=== PATIENT | female | born 1945 | race Caucasian/White ===

== ENCOUNTER 2019-05-02 19:09 | Inpatient (IN) | payer MEDICARE, MEDICAID ==
[2019-05-02] MEDS ORDERED: Enoxaparin Sodium 60 MG/0.6 ML SYRINGE ONE (19:46)
[2019-05-02] MEDS ORDERED: Diltiazem HCl 125 MG, Admixture Fee 1 EACH in Sodium Chloride 0.9% 100 ML IVPB SCH (20:00)
[2019-05-02] MEDS ORDERED: Magnesium 2 GM/50 ML 2 GM in Premix Bag 1 BAG IVPB SCH (22:00)
[2019-05-02 22:40] LABS: CKMB 2.2 ng/mL (0-6.6)
[2019-05-02 22:47] VITALS: BMI 18.3
[2019-05-03] MEDS ORDERED: Calcium Carbonate 500 MG ChewTAB PO PRN (02:40)
[2019-05-03] MEDS ORDERED: Senokot S 8.6-50 MG TAB PO PRN (02:40)
[2019-05-03] MEDS ORDERED: Nitroglycerin 0.4 MG TAB (25 Tab Bottle) PO PRN (02:42)
--- NOTE | 2019-05-03 02:54 | HP ---
The patient was seen and examined on 02 May 2019 in the emergency room. CHIEF COMPLAINT: Shortness of breath along with rapid heart rate. HISTORY OF PRESENT ILLNESS: The patient is a 73-year-old female with paroxysmal atrial tachycardia, COPD, and chronic diastolic heart failure, presented to the emergency room at [facility] with above complaints. Over the last 1 week, the patient noticed that her heart rate is in 130s to 140s. The patient was evaluated by her PCP and was advised to go to the emergency room for evaluation. She noticed that her blood pressure was low. The shortness of breath was slightly worsened compared to her baseline. She did not feel significant palpitations, however, she felt lightheaded. She denies any chest pain, lower extremity edema, or significant orthopnea. No recent immobilization or travel reported. She continues to smoke on a daily basis. Denies previous cardiac workup beside an echocardiogram in 2017 during her hospitalization. PAST MEDICAL HISTORY: 1. COPD. 2. Chronic diastolic heart failure. 3. Paroxysmal atrial tachycardia. 4. Hypertension. 5. Hyperlipidemia. 6. History of CVA. 7. History of panic attacks. 8. Chronic anemia. PAST SURGICAL HISTORY: Bilateral carotid endarterectomy. ALLERGIES: NO KNOWN DRUG ALLERGIES. CURRENT HOME MEDICATIONS: The patient is unable to recall any of her home medications. FAMILY HISTORY: Mother with diabetes. She also had stroke later on. SOCIAL HISTORY: She continues to smoke up to half pack a day for more than 30 years. Denies any alcohol or drug use. Full code. DPOA - family. REVIEW OF SYSTEMS: All other review of systems were reviewed and were found negative. PHYSICAL EXAMINATION: VITAL SIGNS: In the emergency room showed temperature 98.6, respirations 20, pulse rate in 130s, blood pressure 100/59, O2 saturation of 97% on 4 L nasal cannula. GENERAL: A 73-year-old female in no apparent distress at rest. HEENT: Head, atraumatic and normocephalic. Sclerae anicteric. Moist mucous membranes. No oral lesion. NECK: Supple. No JVD. No carotid bruit. LUNGS: Showed scattered rhonchi without significant rales or wheezing. No significant accessory muscle use. HEART: S1, S2 present. Tachycardic. Irregularly irregular rhythm. No rubs or gallops. ABDOMEN: Soft, nontender. Bowel sounds present. EXTREMITIES: No calf tenderness. NEUROLOGIC: Grossly nonfocal. Moves all 4 extremities. PSYCHIATRIC: Alert, awake, and oriented x3. SKIN: Warm and dry. LYMPH NODES: No palpable lymph nodes in the neck. PERIPHERAL VASCULAR: Radial pulses palpable bilaterally. MUSCULOSKELETAL: No joint swelling tenderness. LABORATORY FINDINGS: CBC showed WBC 9.0 with hemoglobin 10.1, hematocrit 34.8, platelet of 324. INR 0.8. Chemistry showed sodium 140 potassium 5.3, chloride 91, bicarb 34, BUN 34, creatinine 1.53. Baseline creatinine earlier this year was around 1.0. Troponin was 0.032 with normal CK-MB. BNP 572. IMAGING STUDIES: Chest x-ray by my review was negative for acute findings. It showed increased bronchopulmonary markings. EKG by my review showed atrial fibrillation with rapid ventricular response with PVCs. IMPRESSION: 1. Atrial fibrillation with rapid ventricular response. The patient is currently on Cardizem drip. 2. Chronic obstructive pulmonary disease with ongoing tobacco abuse. 3. Relative hypomagnesemia. 4. History of multifocal atrial arrhythmias. The patient was evaluated by Cardiology and Electrophysiology, Dr. Ya in 2017. 5. Chronic diastolic heart failure. 6. Hyperlipidemia. 7. Elevated troponin secondary to type 2 myocardial infarction. 8. Chronic anemia. 9. Chronic kidney disease, stage 3 with acute kidney injury. 10. Hyperkalemia. 11. Hyperlipidemia. 12. Anxiety. PLAN: The patient will be monitored in the telemetry unit. We will continue Cardizem drip. Home medications are unclear at this time. She also received one dose of 1 mg/kg Lovenox, which will be continued. We will keep her n.p.o. past midnight. Consult Cardiology. We will verify home medications and start accordingly. We will replace magnesium. Plan of care was discussed with the patient in detail. She stated understanding. Job ID: [id number] [facility]
[2019-05-03 04:15] LABS: #Eosinphils 0.1 thou/uL (0.0-0.7); #Lymphocytes 2.1 thou/uL (1.20-3.40); #Monocytes 1.1 thou/uL (0.11-0.59); %Basophils 0.1 % (0.0-1.0); %Eosinophils 1.2 % (0.0-10.0); %Lymphocytes 24.9 % (21.0-51.0); %Monocytes 13.2 % (0.0-10.0); %Neutrophils 60.6 % (42.0-75.0); Hemoglobin 9.4 g/dL (12.0-16.0); Mean Corpuscular Hemoglobin 31.5 pg (27.0-31.0); Mean Corpuscular Volume 98.5 fL (78.0-98.0); Mean Platelet Volume 8.5 fL (7.4-10.4); Platelet Count 271 thou/uL (130-400); RBC Distribution Width 11.4 % (11.5-14.5); Red Blood Cell (RBC) Count 2.99 mill/uL (4.20-5.40); White Blood Cell (WBC) Count 8.3 thou/uL (4.8-10.8)
[2019-05-03 04:58] LABS: Anion Gap 13 mmol/L (10-20); BUN (Urea Nitrogen) 25 mg/dL (9.8-20.1); Calc. Creatinine Clearance 33 mL/min (70-130); Calcium 9.2 mg/dL (7.8-10.44); Carbon Dioxide 34 mmol/L (23-31); Chloride 95 mmol/L (98-107); Estimated GFR-MDRD 48; Glucose 96 mg/dL (83-110); Sodium 138 mmol/L (136-145)
[2019-05-03] MEDS: Mometasone/Formoterol 120 PUFF INHALER INH SCH ×2 (06:58→18:25)
[2019-05-03] MEDS ORDERED: Famotidine 20 MG TAB PO SCH (09:00)
[2019-05-03] MEDS: Multivit, Therapeutic 1 TAB PO SCH (09:13)
[2019-05-03] MEDS: Aspirin 81 mg Enteric Coated Tablet PO SCH (09:13)
[2019-05-03] MEDS ORDERED: Iopamidol 370 76% 50 ML VIAL FS ONE (11:23)
--- NOTE | 2019-05-03 16:27 | PDOC.HOSPP ---
- Subjective Encounter Date: 05/03/19 Encounter Time: 14:00 Subjective: The patient reports feeling a flutter sensation on and off for the past few weeks. She never had palpitations. Went to her PCP who sent her to the ER. The patient denies chest pain. She has mild shortness of breath. She reports decreased appetite. - Objective Vital Signs & Weight: Vital Signs (12 hours) Temp Pulse Resp BP Pulse Ox 05/03/19 11:34 98.8 F 82 16 111/54 L 96 05/03/19 07:25 98.0 F 75 16 108/61 95 05/03/19 07:04 99 05/03/19 07:03 75 16 99 05/03/19 06:58 78 16 95 Weight Admit Weight 100 lb 6 oz Weight 100 lb 6 oz I&O: 05/02/19 05/03/19 05/04/19 06:59 06:59 06:59 Intake Total 285 Output Total 200 Balance 85 Result Diagrams: 05/03/19 03:47 05/03/19 03:47 Hospitalist ROS - Review of Systems Constitutional: denies: fever, chills - Medication Medications: Active Medications Generic Name Dose Route Start Last Admin Trade Name Freq PRN Reason Stop Dose Admin Albuterol/Ipratropium 3 ml 05/03/19 06:30 05/03/19 07:03 Duoneb NEB 3 ml BID-RT JOLIE Administration Aspirin 81 mg 05/03/19 09:00 05/03/19 09:13 Ecotrin PO 81 mg DAILY JOLIE Administration Famotidine 20 mg 05/03/19 09:00 05/03/19 09:14 Pepcid PO Not Given BID JOLIE Mometasone Furoate/Formoterol Fumar 2 puff 05/03/19 06:30 05/03/19 06:58 Dulera 200 Mcg/5 Mcg Inhaler INH 2 puff BID-RT JOLIE Administration Multivitamins 1 tab 05/03/19 09:00 05/03/19 09:13 Theragran PO 1 tab DAILY JOLIE Administration - Exam General Appearance: NAD, awake alert Eye: PERRL, anicteric sclera ENT: normocephalic atraumatic, no oropharyngeal lesions Neck: supple, symmetric, no JVD, no thyromegaly Heart: no murmur, no gallops, no rubs, irregular Respiratory: CTAB, no ronchi Respiratory - other findings: mild diminished breath sounds at bases Gastrointestinal: soft, non-tender, non-distended Extremities: no cyanosis, no clubbing, no edema Skin: normal turgor, no lesions, no rashes Neurological: cranial nerve grossly intact, normal sensation to touch, no focal deficits Musculoskeletal: normal tone, normal strength, no muscle wasting Psychiatric: normal affect, normal behavior, A&O x 3, oriented to person Hosp A/P - Plan This is a 73 year old female who presented with afib with RVR Atrial fibrillation - will order low dose metoprolol 12.5 mg, try to wean off cardizem drip. IF it improves heart rate will order additional 12.5 mg - check CTA thorax - ECHO shows EF 50-55%, moderate MR, mild to moderate TR - cardiology consult pending. - continue lovenox 40 mg SC, switch to BID CKD - creatinine 1.1, stable Macrocytic anemia - Hb 9, check B12 and folate - check TSh DVT prophylaxis: therapeutic lovenox Dispo: pending control of heart rate, cardiology evaluation
--- NOTE | 2019-05-03 17:27 | CT ---
CT PULMONARY ANGIOGRAM WITH IV CONTRAST AND 3-D POSTPROCESSING: HISTORY:Uncontrolled atrial fibrillation. Shortness of breath. COPD FINDINGS: There is good contrast opacification of the pulmonary arterial vasculature without filling defects to suggest pulmonary embolism. The thoracic aorta is without aneurysm or dissection. No pleural or pericardial effusions are seen. No pneumothoraces, focal areas of consolidation or lung nodules are noted. There are changes of COPD. Dependent changes are seen at the lung bases. There are degenerative changes in the spine. There is a left adrenal adenoma. IMPRESSION: No CT evidence of pulmonary embolism.
[2019-05-03 18:11] LABS: Thyroid Stimulating Hormone 0.6826 uIU/mL (0.35-4.94)
[2019-05-03] MEDS: Famotidine 20 MG TAB PO SCH (20:59)
[2019-05-03] MEDS ORDERED: Enoxaparin Sodium 40 MG/0.4 ML SYRINGE SC SCH (21:00)
[2019-05-03] MEDS ORDERED: Enoxaparin Sodium 30 MG/0.3 ML SYRINGE SC SCH (21:00)
--- NOTE | 2019-05-03 23:51 | CON ---
DATE OF CONSULTATION: HISTORY OF PRESENT ILLNESS: Sharla Beasley is a 73-year-old white female, who has been evaluated by Dr. Dipak Parr in the past. He saw her when she was admitted in January 2017 with COPD exacerbation. It was felt that she had some degree of diastolic heart failure and also would have episodes of paroxysmal atrial tachycardia with the episodes being very short lived. She was placed on diltiazem to help with suppression of these. She has not been seen by Cardiology since that time. She now has noticed that whenever she would check her oximetry that her heart rate would be in the 120s to 130s. This has been occurring for the last 2-3 weeks at least. She denies any palpitations or chest discomfort. However, she does state that her breathing has been somewhat more difficult. She was seen by primary physician and told to go to the emergency room. She initially went to the emergency room in [place] and was transferred here. She was placed on a Cardizem drip for better rate control. PAST MEDICAL HISTORY: Remarkable for COPD, diastolic heart failure, paroxysmal atrial tachycardia on Cardizem, hypertension, hyperlipidemia, history of CVA, history of panic attacks, and anemia. PAST SURGICAL HISTORY: Bilateral carotid endarterectomy. MEDICATIONS: 1. Albuterol nebs q.6 hours p.r.n. 2. Albuterol inhaler. 3. Cardizem CD 180 daily. 4. Advair Diskus one inhalation b.i.d. Furosemide 40 mg every other day. 5. Lisinopril 20 mg daily. 6. Pravastatin 40 at bedtime. 7. Sertraline 150 daily. 8. Ventolin inhaler. ALLERGIES: NONE. SOCIAL HISTORY: She smokes 1/2 pack per day. FAMILY HISTORY: Unremarkable except a mother with stroke. REVIEW OF SYSTEMS: A 10-point review of systems unremarkable. PHYSICAL EXAMINATION: VITAL SIGNS: Blood pressure 113/71, pulse of 100 and irregularly irregular. HEENT: PERRL. NECK: Supple. CHEST: Reveals distant breath sounds. CARDIOVASCULAR: S1, S2 normal without any S3, S4, or murmurs. Carotid upstrokes normal without bruits. ABDOMEN: Normal bowel sounds. No tenderness. EXTREMITIES: Revealed no clubbing, cyanosis, or edema. NEUROLOGIC: Grossly intact. LABORATORY DATA: EKG reveals atrial fibrillation with fast ventricular response of 133 per minute. Chest CTA reveals no evidence of pulmonary embolism. Echocardiogram revealed study to be technically difficult. There was ejection fraction of 55% to 60% with moderate mitral regurgitation, aortic valvular sclerosis, and mild to moderate tricuspid regurgitation. Hemoglobin 9.4, hematocrit 29.5, white count 8300, platelets 271,000. Sodium 138, potassium 4.0, chloride 95, carbon dioxide 34, BUN 25, creatinine 1.11. Troponin I 0.032. TSH is normal. BNP 572.5. IMPRESSION: 1. New onset atrial fibrillation with rapid ventricular response. Currently on Cardizem drip. Historically, when she would check her pulse oximeter, her heart rate has been elevated for 2 to 3 weeks and I imagine she has been in atrial fibrillation for that amount of time. 2. History of atrial tachycardia, on Cardizem for suppression. 3. Chronic obstructive pulmonary disease. 4. Smoker. 5. History of diastolic heart failure. 6. Hyperlipidemia. 7. [id number] myocardial infarction type 2. 8. Chronic kidney disease. 9. Hyperlipidemia. 10. Anxiety. RECOMMENDATIONS: Mrs. Fox currently is on Lovenox 1 mg/kg b.i.d. and will continue to be anticoagulated. Consideration should be given to eventual transition to oral drug. Her GFR is usually under 50 and Xarelto 15 mg daily would be the optimal choice. Once someone is available to perform a transesophageal echo, consideration should be given to electrocardioversion. I am hesitant to start her on an antiarrhythmic at this time until we are certain that there is no left atrial appendage thrombus. Consideration be given to electrical cardioversion on Wednesday when Dr. You is available. Job ID: [id number] [facility]
[2019-05-04 04:26] LABS: #Eosinphils 0.1 thou/uL (0.0-0.7); #Lymphocytes 1.6 thou/uL (1.20-3.40); #Neutrophils 4.4 thou/uL (1.40-6.50); %Basophils 0.5 % (0.0-1.0); %Eosinophils 1.4 % (0.0-10.0); %Lymphocytes 22.2 % (21.0-51.0); %Monocytes 14.4 % (0.0-10.0); %Neutrophils 61.5 % (42.0-75.0); Hemoglobin 8.9 g/dL (12.0-16.0); Mean Corpuscular HGB CONC 31.2 g/dL (32.0-36.0); Mean Corpuscular Hemoglobin 30.9 pg (27.0-31.0); Mean Corpuscular Volume 98.9 fL (78.0-98.0); Platelet Count 288 thou/uL (130-400); RBC Distribution Width 11.5 % (11.5-14.5); Red Blood Cell (RBC) Count 2.89 mill/uL (4.20-5.40); White Blood Cell (WBC) Count 7.1 thou/uL (4.8-10.8)
[2019-05-04 04:32] LABS: BUN (Urea Nitrogen) 21 mg/dL (9.8-20.1); Calc. Creatinine Clearance 33 mL/min (70-130); Calcium 9.4 mg/dL (7.8-10.44); Estimated GFR-MDRD 52; Glucose 100 mg/dL (83-110); Magnesium 1.8 mg/dL (1.6-2.6)
[2019-05-04 04:41] LABS: Anion Gap 2 mmol/L (10-20); Chloride 96 mmol/L (98-107); Potassium 4.3 mmol/L (3.5-5.1); Sodium 139 mmol/L (136-145)
[2019-05-04 04:44] LABS: Carbon Dioxide 45 mmol/L (23-31)
[2019-05-04] MEDS: Mometasone/Formoterol 120 PUFF INHALER INH SCH ×2 (07:34→18:49)
[2019-05-04] MEDS ORDERED: Albuterol Sulfate 1.25 MG/3 ML NEB NEB PRN (07:34)
[2019-05-04 08:00] LABS: Actual Bicarbonate (HCO3a) 39.6 mEq/L (22-28); Base Excess (BEa) 12.1 mEq/L (-2.0 to +3.0); Calcium, Ionized 1.18 mmol/L (1.12-1.30); Carboxyhemoglobin (COHb) 0.6 gm% (0.0-3.0); Hemoglobin (Hb) 10.3 g/dL (12.0-16.0); O2 Tension (PaO2) 89.5 mmHg (> 70.0); Potassium - ABG Lab 4.31 mmol/L (3.70-5.30); pH, Arterial 7.37 (7.35-7.45)
[2019-05-04 08:03] LABS: CO2 Tension 70.2 mmHg (35.0-45.0)
[2019-05-04 08:04] LABS: Puncture Site RBA
[2019-05-04] MEDS ORDERED: Enoxaparin Sodium 40 MG/0.4 ML SYRINGE SC SCH (09:00)
[2019-05-04] MEDS ORDERED: Rivaroxaban 10 MG TAB PO SCH (09:00)
[2019-05-04] MEDS: Aspirin 81 mg Enteric Coated Tablet PO SCH (09:13)
[2019-05-04] MEDS: Multivit, Therapeutic 1 TAB PO SCH (09:14)
[2019-05-04] MEDS: PROVENTIL INHALER 6.7 G (200 INHALATIONS) INH SCH (14:05)
--- NOTE | 2019-05-04 15:36 | PDOC.HOSPP ---
- Subjective Encounter Date: 05/04/19 Encounter Time: 10:30 Subjective: The patient states she feels okay, denies palpitations, chest pain or shortness of breath. Per nursing staff, heart rate has been ranging from 80 to 120 while ambulating overnight. SHe is still on cardizem drip at 2.5 mcg/hour. Home medications were resumed. This afternoon, she hasn't gone above 101 Per cardiology, plan for KEIRY on Wednesday. Cardiology switched her from lovenox to xarelto PCO2 was noted to be 45, ABG shows pH 7.37, pCO2 of 70. Patient has history of COPD - Objective Vital Signs & Weight: Vital Signs (12 hours) Temp Pulse Resp BP Pulse Ox 05/04/19 14:05 76 16 05/04/19 11:05 98.9 F 76 16 105/55 L 98 05/04/19 07:34 100 16 05/04/19 07:25 100 05/04/19 07:23 100 16 05/04/19 07:02 97.8 F 86 16 119/58 L 100 Weight Admit Weight 100 lb 6 oz Weight 95 lb I&O: 05/03/19 05/04/19 05/05/19 06:59 06:59 06:59 Intake Total 285 Output Total 200 Balance 85 Result Diagrams: 05/04/19 03:41 05/04/19 03:41 Hospitalist ROS - Review of Systems Constitutional: denies: fever, chills - Medication Medications: Active Medications Generic Name Dose Route Start Last Admin Trade Name Freq PRN Reason Stop Dose Admin Albuterol Sulfate 1 puff 05/04/19 12:00 05/04/19 14:05 Proventil Hfa INH 1 puff 1200 JOLIE Administration Albuterol/Ipratropium 3 ml 05/03/19 06:30 05/04/19 07:23 Duoneb NEB 3 ml BID-RT JOLIE Administration Aspirin 81 mg 05/03/19 09:00 05/04/19 09:13 Ecotrin PO 81 mg DAILY JOLIE Administration Diltiazem HCl 180 mg 05/04/19 09:00 05/04/19 09:14 Cardizem Cd PO 180 mg DAILY JOLIE Administration Famotidine 20 mg 05/03/19 21:00 05/03/19 20:59 Pepcid PO 20 mg QPM JOLIE Administration Diltiazem HCl 125 mg/ 125 mls @ 2.5 mls/hr 05/02/19 20:00 05/04/19 02:07 Miscellaneous Medication 1 IVPB 125 mls each/ Sodium Chloride INF JOLIE Administration Protocol Metoprolol Succinate 25 mg 05/04/19 09:00 05/04/19 09:14 Toprol Xl PO 25 mg DAILY JOLIE Administration Mometasone Furoate/Formoterol Fumar 2 puff 05/03/19 06:30 05/04/19 07:34 Dulera 200 Mcg/5 Mcg Inhaler INH 2 puff BID-RT JOLIE Administration Multivitamins 1 tab 05/03/19 09:00 05/04/19 09:14 Theragran PO 1 tab DAILY JOLIE Administration Sertraline HCl 150 mg 05/04/19 09:00 05/04/19 09:14 Zoloft PO 150 mg DAILY JOLIE Administration - Exam General Appearance: NAD, awake alert Eye: PERRL, anicteric sclera ENT: normocephalic atraumatic, no oropharyngeal lesions Neck: supple, symmetric, no JVD Heart: no murmur, no gallops, no rubs Heart - other findings: irregularly irregular Respiratory: CTAB, no wheezes, no rales, no ronchi Gastrointestinal: soft, non-tender, non-distended, normal bowel sounds, no hepatomegaly Extremities: no cyanosis, no clubbing, no edema Skin: normal turgor, no lesions, no rashes Neurological: cranial nerve grossly intact, normal sensation to touch, no focal deficits, no new deficit Musculoskeletal: normal tone, normal strength, no muscle wasting Hosp A/P - Plan CTA Thorax; negative for PE. This is a 73 year old female who presented with afib with RVR Atrial fibrillation - continue metoprolol 25 mg daily, diltiazem 180 mg daily, currently still on cardizem drip 2.5, wean off - switch anticoagulation to xarelto - COPD - continue breathing treatments scheduled Compensated primary respiratory acidosis with metabolic alkalosis - patient has pCO2 of 45, pH 7.37, pCO2 70 -treatment of COPD as mentioned above CKD - creatinine 1.1, stable Macrocytic anemia - Hb 9, B12, folate and TSH are normal DVT prophylaxis: xarelto Dispo: KEIRY on Wednesday
[2019-05-04] MEDS ORDERED: Mometasone/Formoterol 120 PUFF INHALER INH SCH (18:30)
[2019-05-04] MEDS: Famotidine 20 MG TAB PO SCH (20:08)
[2019-05-04] MEDS: Simvastatin 5 MG TAB PO SCH (20:08)
[2019-05-04] MEDS ORDERED: Diltiazem HCl SR 60 mg Capsule PO SCH (20:15)
[2019-05-05 04:36] LABS: Hemoglobin 8.9 g/dL (12.0-16.0); Mean Corpuscular HGB CONC 31.7 g/dL (32.0-36.0); Mean Corpuscular Hemoglobin 31.3 pg (27.0-31.0); Mean Corpuscular Volume 98.7 fL (78.0-98.0); Mean Platelet Volume 7.6 fL (7.4-10.4); Platelet Count 283 thou/uL (130-400); RBC Distribution Width 11.5 % (11.5-14.5); Red Blood Cell (RBC) Count 2.84 mill/uL (4.20-5.40); White Blood Cell (WBC) Count 8.4 thou/uL (4.8-10.8)
[2019-05-05 05:05] LABS: BUN (Urea Nitrogen) 21 mg/dL (9.8-20.1); Calc. Creatinine Clearance 33 mL/min (70-130); Calcium 9.3 mg/dL (7.8-10.44); Estimated GFR-MDRD 51; Glucose 103 mg/dL (83-110)
[2019-05-05 05:16] LABS: Anion Gap 12 mmol/L (10-20); Carbon Dioxide 38 mmol/L (23-31); Chloride 93 mmol/L (98-107); Potassium 4.7 mmol/L (3.5-5.1); Sodium 138 mmol/L (136-145)
[2019-05-05] MEDS: Mometasone/Formoterol 120 PUFF INHALER INH SCH ×2 (07:42→20:09)
[2019-05-05] MEDS: Multivit, Therapeutic 1 TAB PO SCH (09:39)
[2019-05-05] MEDS: Aspirin 81 mg Enteric Coated Tablet PO SCH (09:40)
[2019-05-05] MEDS: PROVENTIL INHALER 6.7 G (200 INHALATIONS) INH SCH (11:08)
[2019-05-05] MEDS: Acetaminophen 325 MG TAB PO PRN (12:15)
[2019-05-05] MEDS ORDERED: Digoxin 0.5 MG/2 ML AMP SLOW IVP SCH (12:30)
--- NOTE | 2019-05-05 14:49 | PDOC.HOSPP ---
- Subjective Encounter Date: 05/05/19 Encounter Time: 14:48 Subjective: Patient is doing well. No chest pain, palpitations, shortness of breath. Wants to take a nap. Still in afib but off cardizem drip. Plan for KEIRY tomorrow. Patient asks, "what time?" - Objective Vital Signs & Weight: Vital Signs (12 hours) Temp Pulse Resp BP Pulse Ox 05/05/19 12:54 99 05/05/19 12:00 98.3 F 127 H 24 H 124/97 H 98 05/05/19 09:39 117 H 05/05/19 09:25 98.0 F 117 H 18 120/81 99 05/05/19 08:00 99 05/05/19 07:42 97 05/05/19 07:41 84 16 97 05/05/19 04:25 97.5 F L 67 16 161/61 H 100 Weight Admit Weight 100 lb 6 oz Weight 99 lb I&O: 05/04/19 05/05/19 05/06/19 06:59 06:59 06:59 Intake Total 1660 Output Total 650 Balance 1010 Result Diagrams: 05/05/19 04:05 05/05/19 04:05 Hospitalist ROS - Review of Systems Constitutional: denies: fever, chills ENT: denies: mouth pain Respiratory: denies: cough, dry Gastrointestinal: denies: nausea, vomiting - Medication Medications: Active Medications Generic Name Dose Route Start Last Admin Trade Name Freq PRN Reason Stop Dose Admin Acetaminophen 650 mg 05/03/19 02:40 05/05/19 12:15 Tylenol PO 650 mg Q4H PRN Administration Headache/Fever/Mild Pain (1-3) Albuterol Sulfate 1 puff 05/04/19 12:00 05/05/19 11:08 Proventil Hfa INH 1 puff 1200 JOLIE Administration Albuterol/Ipratropium 3 ml 05/03/19 06:30 05/05/19 07:41 Duoneb NEB 3 ml BID-RT JOLIE Administration Aspirin 81 mg 05/03/19 09:00 05/05/19 09:40 Ecotrin PO 81 mg DAILY JOLIE Administration Diltiazem HCl 240 mg 05/05/19 09:00 05/05/19 09:39 Cardizem Cd PO 240 mg DAILY JOLIE Administration Famotidine 20 mg 05/03/19 21:00 05/04/19 20:08 Pepcid PO 20 mg QPM JOLIE Administration Metoprolol Succinate 25 mg 05/04/19 09:00 05/05/19 09:40 Toprol Xl PO 25 mg DAILY JOLIE Administration Mometasone Furoate/Formoterol Fumar 2 puff 05/03/19 06:30 05/05/19 07:42 Dulera 200 Mcg/5 Mcg Inhaler INH 2 puff BID-RT JOLIE Administration Multivitamins 1 tab 05/03/19 09:00 05/05/19 09:39 Theragran PO 1 tab DAILY JOLIE Administration Sertraline HCl 150 mg 05/04/19 09:00 05/05/19 09:39 Zoloft PO 150 mg DAILY JOLIE Administration Simvastatin 10 mg 05/04/19 21:00 05/04/19 20:08 Zocor PO 10 mg HS JOLIE Administration - Exam General Appearance: NAD, awake alert Eye: PERRL, anicteric sclera ENT: normocephalic atraumatic, no oropharyngeal lesions Neck: supple, symmetric, no JVD, no thyromegaly, no carotid bruit Heart: no murmur, no gallops, no rubs, irregular Respiratory: CTAB, no wheezes, no rales Gastrointestinal: soft, non-tender, non-distended Extremities: no cyanosis, no clubbing, no edema Skin: normal turgor, no lesions Neurological: cranial nerve grossly intact, normal sensation to touch, no focal deficits, no new deficit Musculoskeletal: normal tone Psychiatric: normal affect, normal behavior, A&O x 3, oriented to time Hosp A/P - Plan CTA Thorax; negative for PE. ECHO: EF 55-60%, moderate MR, mild to moderate TR This is a 73 year old female who presented with afib with RVR Atrial fibrillation - diltiazem increased to 240 mg daily, rate controlled. Continue metoprolol 25 mg daily. Patient will be NPO for KEIRY Tomorrow by cardiology - continue xarelto for anticoagulation - CTA negative for PE, troponin mildly positive at 0.03, then downtrended likely from uncontrolled tachycardia - ECHO shows no wall motion abnormalities Moderate MR - noted on ECHO, outpatient f/u COPD - continue breathing treatments scheduled Compensated primary respiratory acidosis with metabolic alkalosis - patient has pCO2 of 45, pH 7.37, pCO2 70 -treatment of COPD as mentioned above CKD - creatinine 1.1, stable Macrocytic anemia - Hb 9, B12, folate and TSH are normal DVT prophylaxis: xarelto Dispo: KEIRY on Wednesday, NPO after midnight
[2019-05-05] MEDS: Rivaroxaban 10 MG TAB PO SCH (16:26)
[2019-05-05] MEDS: Simvastatin 5 MG TAB PO SCH (20:00)
[2019-05-05] MEDS: Famotidine 20 MG TAB PO SCH (20:00)
[2019-05-06] MEDS: Mometasone/Formoterol 120 PUFF INHALER INH SCH ×2 (07:24→20:05)
[2019-05-06] MEDS: Acetaminophen 325 MG TAB PO PRN (08:52)
[2019-05-06] MEDS: Aspirin 81 mg Enteric Coated Tablet PO SCH (08:52)
[2019-05-06] MEDS: Multivit, Therapeutic 1 TAB PO SCH (08:53)
[2019-05-06] MEDS ORDERED: PROPOFOL 40 ML ONE (10:30)
[2019-05-06] MEDS: PROVENTIL INHALER 6.7 G (200 INHALATIONS) INH SCH (12:10)
--- NOTE | 2019-05-06 12:22 | PDOC.HOSPP ---
- Subjective Encounter Date: 05/06/19 Encounter Time: 12:21 Subjective: Ms. Beasley was seen today in follow-up of Atrial fibrillation. She is back from cardioversion. She does not have any complaints. - Objective Vital Signs & Weight: Vital Signs (12 hours) Temp Pulse Resp BP Pulse Ox 05/06/19 11:14 97.1 F L 73 22 H 123/56 L 92 L 05/06/19 07:17 81 14 99 05/06/19 07:11 97.9 F 79 17 147/76 H 100 05/06/19 03:31 97.6 F 87 22 H 156/71 H 96 Weight Admit Weight 100 lb 6 oz Weight 99 lb I&O: 05/05/19 05/06/19 05/07/19 06:59 06:59 06:59 Intake Total 1660 1329 200 Output Total 650 Balance 1010 1329 200 Result Diagrams: 05/05/19 04:05 05/05/19 04:05 Hospitalist ROS - Medication Medications: Active Medications Generic Name Dose Route Start Last Admin Trade Name Freq PRN Reason Stop Dose Admin Acetaminophen 650 mg 05/03/19 02:40 05/06/19 08:52 Tylenol PO 650 mg Q4H PRN Administration Headache/Fever/Mild Pain (1-3) Albuterol Sulfate 1 puff 05/04/19 12:00 05/06/19 12:10 Proventil Hfa INH 1 puff 1200 JOLIE Administration Albuterol/Ipratropium 3 ml 05/03/19 06:30 05/06/19 07:17 Duoneb NEB 3 ml BID-RT JOLIE Administration Aspirin 81 mg 05/03/19 09:00 05/06/19 08:52 Ecotrin PO 81 mg DAILY JOLIE Administration Diltiazem HCl 240 mg 05/05/19 09:00 05/06/19 08:52 Cardizem Cd PO 240 mg DAILY JOLIE Administration Famotidine 20 mg 05/03/19 21:00 05/05/19 20:00 Pepcid PO 20 mg QPM JOLIE Administration Metoprolol Succinate 25 mg 05/04/19 09:00 05/06/19 08:53 Toprol Xl PO 25 mg DAILY JOLIE Administration Mometasone Furoate/Formoterol Fumar 2 puff 05/03/19 06:30 05/06/19 07:24 Dulera 200 Mcg/5 Mcg Inhaler INH 2 puff BID-RT JOLIE Administration Multivitamins 1 tab 05/03/19 09:00 05/06/19 08:53 Theragran PO 1 tab DAILY JOLIE Administration Rivaroxaban 15 mg 05/05/19 17:00 05/05/19 16:26 Xarelto PO 15 mg 1700 JOLIE Administration Sertraline HCl 150 mg 05/04/19 09:00 05/06/19 08:51 Zoloft PO 150 mg DAILY JOLIE Administration Simvastatin 10 mg 05/04/19 21:00 05/05/19 20:00 Zocor PO 10 mg HS JOLIE Administration - Exam Eye: PERRL Heart: RRR, no murmur, no gallops, no rubs Respiratory: CTAB, no wheezes, no rales, no ronchi, normal chest expansion, no tachypnea, normal percussion Gastrointestinal: soft, non-tender, non-distended, normal bowel sounds, no palpable masses, no hepatomegaly Extremities: no cyanosis, no clubbing, no edema Psychiatric: normal affect, normal behavior Hosp A/P (1) Atrial fibrillation Code(s): I48.91 - UNSPECIFIED ATRIAL FIBRILLATION Status: Acute (2) COPD (chronic obstructive pulmonary disease) Status: Acute (3) HTN (hypertension) Code(s): I10 - ESSENTIAL (PRIMARY) HYPERTENSION Status: Chronic (4) Chronic kidney disease, stage 2 (mild) Code(s): N18.2 - CHRONIC KIDNEY DISEASE, STAGE 2 (MILD) Status: Chronic - Plan * Atrial Fibrillation- she is post cardioversion, and is now in sinus.- continue Metoprolol, and Cardizem * Continue Xarelto for CVA prevention * HTN- blood pressure is stable * COPD- stable * Chronic kidney disease stage 2- stable * Anticipate discharge home soon
[2019-05-06] MEDS: Rivaroxaban 10 MG TAB PO SCH (16:18)
[2019-05-06] MEDS: Simvastatin 5 MG TAB PO SCH (20:46)
[2019-05-06] MEDS: Famotidine 20 MG TAB PO SCH (20:46)
[2019-05-07] MEDS: Mometasone/Formoterol 120 PUFF INHALER INH SCH ×2 (07:56→20:02)
[2019-05-07] MEDS: Aspirin 81 mg Enteric Coated Tablet PO SCH (08:47)
[2019-05-07] MEDS: Multivit, Therapeutic 1 TAB PO SCH (08:47)
[2019-05-07 09:28] LABS: Hemoglobin 9.1 g/dL (12.0-16.0); Platelet Count 304 thou/uL (130-400)
[2019-05-07] MEDS ORDERED: Flecainide 50 MG TAB PO SCH (11:00)
[2019-05-07] MEDS ORDERED: methylPREDNISolone Sod Succ 40 MG VIAL IVP SCH (11:45)
--- NOTE | 2019-05-07 11:46 | PDOC.HOSPP ---
- Subjective Encounter Date: 05/07/19 Encounter Time: 11:43 Subjective: Ms. Beasley notes worsening shortness of breath this morning. Especially when she gets up to move around. - Objective Vital Signs & Weight: Vital Signs (12 hours) Temp Pulse Resp BP Pulse Ox 05/07/19 11:19 98.2 F 64 16 111/53 L 93 L 05/07/19 07:48 65 18 95 05/07/19 07:07 98.4 F 65 22 H 131/66 97 05/07/19 04:00 98.3 F 66 22 H 145/66 H 97 Weight Admit Weight 100 lb 6 oz Weight 99 lb I&O: 05/06/19 05/07/19 05/08/19 06:59 06:59 06:59 Intake Total 1329 1590 Output Total 200 Balance 1329 1390 Result Diagrams: 05/07/19 09:03 05/07/19 09:03 Hospitalist ROS - Medication Medications: Active Medications Generic Name Dose Route Start Last Admin Trade Name Freq PRN Reason Stop Dose Admin Acetaminophen 650 mg 05/03/19 02:40 05/06/19 08:52 Tylenol PO 650 mg Q4H PRN Administration Headache/Fever/Mild Pain (1-3) Albuterol Sulfate 1 puff 05/04/19 12:00 05/06/19 12:10 Proventil Hfa INH 1 puff 1200 JOLIE Administration Albuterol/Ipratropium 3 ml 05/03/19 06:30 05/07/19 07:48 Duoneb NEB 3 ml BID-RT JOLIE Administration Aspirin 81 mg 05/03/19 09:00 05/07/19 08:47 Ecotrin PO 81 mg DAILY JOLIE Administration Diltiazem HCl 240 mg 05/05/19 09:00 05/07/19 08:47 Cardizem Cd PO 240 mg DAILY JOLIE Administration Famotidine 20 mg 05/03/19 21:00 05/06/19 20:46 Pepcid PO 20 mg QPM JOLIE Administration Mometasone Furoate/Formoterol Fumar 2 puff 05/03/19 06:30 05/07/19 07:56 Dulera 200 Mcg/5 Mcg Inhaler INH 2 puff BID-RT JOLIE Administration Multivitamins 1 tab 05/03/19 09:00 05/07/19 08:47 Theragran PO 1 tab DAILY JOLIE Administration Rivaroxaban 15 mg 05/05/19 17:00 05/06/19 16:18 Xarelto PO 15 mg 1700 JOLIE Administration Sertraline HCl 150 mg 05/04/19 09:00 05/07/19 08:47 Zoloft PO 150 mg DAILY JOLIE Administration Simvastatin 10 mg 05/04/19 21:00 05/06/19 20:46 Zocor PO 10 mg HS JOLIE Administration - Exam Eye: PERRL Heart: RRR, no murmur, no gallops, no rubs, normal peripheral pulses Respiratory: CTAB (but decreased air movement, no wheezing) Gastrointestinal: soft, non-tender, non-distended, normal bowel sounds, no palpable masses, no hepatomegaly, no splenomegaly Extremities: no cyanosis, no clubbing, no edema Hosp A/P (1) Atrial fibrillation Code(s): I48.91 - UNSPECIFIED ATRIAL FIBRILLATION Status: Acute (2) COPD (chronic obstructive pulmonary disease) Status: Acute (3) HTN (hypertension) Code(s): I10 - ESSENTIAL (PRIMARY) HYPERTENSION Status: Chronic (4) Chronic kidney disease, stage 2 (mild) Code(s): N18.2 - CHRONIC KIDNEY DISEASE, STAGE 2 (MILD) Status: Chronic - Plan * Atrial Fibrillation- she slipped back into AFIB with RVR this morning. She also noted more shortness of breath. * Will await further recommendations from Cardiology * Continue Xarelto for CVA prevention * HTN- blood pressure is stable * COPD- this may be a bit decompensated. It appears she was not on Metoprolol before- will discontinue, and continue Cardizem, will also give a dose of Soluedrol * Chronic kidney disease stage 2- stable
[2019-05-07] MEDS: PROVENTIL INHALER 6.7 G (200 INHALATIONS) INH SCH (12:59)
--- NOTE | 2019-05-07 16:40 | PDOC.CPN ---
- Subjective Date: 05/07/19 Time: 16:37 Interval history: She was successfully cardioverted to sinus yesterday. She is doing well otherwise. SOB at baseline. - Review of Systems General: denies: fever/chills, weight/appetite/sleep changes, night sweats, fatigue Respiratory: reports: shortness of breath. denies: cough, congestion, exercise intolerance Cardiovascular: denies: chest pain, palpitation, edema, paroxysmal nocturnal dyspnea, orthopnea Gastrointestinal: denies: nausea, vomiting, diarrhea, constipation, abd pain, GI bleeding Musculoskeletal: denies: pain, tenderness, stiffness, swelling, arthritis/ arthralgias Neurological: denies: numbness, syncope, seizure, weakness - Objective Allergies/Adverse Reactions: Allergies Allergy/AdvReac Type Severity Reaction Status Date / Time No Known Drug Allergies Allergy Verified 01/30/17 01:01 Visit Medications: Current Medications Acetaminophen (Tylenol) 650 mg PO Q4H PRN PRN Reason: Headache/Fever/Mild Pain (1-3) Last Admin: 05/06/19 08:52 Dose: 650 mg Albuterol Sulfate (Proventil Hfa) 1 puff INH 1200 [facility] Last Admin: 05/07/19 12:59 Dose: 1 puff Albuterol Sulfate (Albuterol Sulfate) 1.25 mg NEB Q6H PRN PRN Reason: SOB &/or Wheezing Albuterol/Ipratropium (Duoneb) 3 ml NEB BID-RT [facility] Last Admin: 05/07/19 07:48 Dose: 3 ml Albuterol/Ipratropium (Duoneb) 3 ml NEB [id number] PRN PRN Reason: SOB &/or Wheezing Aspirin (Ecotrin) 81 mg PO DAILY [facility] Last Admin: 05/07/19 08:47 Dose: 81 mg Calcium Carbonate (Tums) 1,000 mg PO Q4H PRN PRN Reason: Heartburn or Indigestion Diltiazem HCl (Cardizem Cd) 240 mg PO DAILY [facility] Last Admin: 05/07/19 08:47 Dose: 240 mg Famotidine (Pepcid) 20 mg PO QPM [facility] Last Admin: 05/06/19 20:46 Dose: 20 mg Flecainide Acetate (Tambocor) 50 mg PO Q12HR [facility] Mometasone Furoate/Formoterol Fumar (Dulera 200 Mcg/5 Mcg Inhaler) 2 puff INH BID-RT [facility] Last Admin: 05/07/19 07:56 Dose: 2 puff Multivitamins (Theragran) 1 tab PO DAILY [facility] Last Admin: 05/07/19 08:47 Dose: 1 tab Nitroglycerin (Nitrostat) 0.4 mg PO Q5MIN PRN PRN Reason: Chest Pain Rivaroxaban (Xarelto) 15 mg PO 1700 [facility] Last Admin: 05/06/19 16:18 Dose: 15 mg Senna/Docusate Sodium (Senokot S) 2 tab PO BID PRN PRN Reason: Constipation Sertraline HCl (Zoloft) 150 mg PO DAILY [facility] Last Admin: 05/07/19 08:47 Dose: 150 mg Simvastatin (Zocor) 10 mg PO HS [facility] Last Admin: 05/06/19 20:46 Dose: 10 mg Sodium Chloride (Flush - Normal Saline) 10 ml IVF PRN PRN PRN Reason: Saline Flush Vital Signs & Weight: Vital Signs Temp Pulse Resp BP Pulse Ox 05/07/19 15:45 98.7 F 63 18 130/60 93 L 05/07/19 11:19 98.2 F 64 16 111/53 L 93 L 05/07/19 07:48 65 18 93 L 05/07/19 07:07 98.4 F 65 22 H 131/66 97 Admit Weight 100 lb 6 oz Weight 99 lb - Physical Exam General: alert & oriented x3 HEENT: mucus membranes moist, normocephaly Neck: supple neck Cardiac: regular rate and rhythm, no murmur Lungs: decreased breath sounds Neuro: grossly intact Abdomen: active bowel sounds, soft, non-tender Extremities: no edema Skin: clear Musculoskeletal: no pain - Labs Result Diagrams: 05/07/19 09:03 05/07/19 09:03 Troponin/CKMB CK-MB (CK-2) 2.2 ng/mL (0-6.6) 05/02/19 19:44 Troponin I 0.026 ng/mL (< 0.028) 05/03/19 03:47 - Telemetry Sinus rhythms and dysrhythmias: sinus rhythm - Assessment/Plan Assessment/Plan: 1. New onset afib, S/P KEIRY Cardioversion. 2. COPD 3. Hx of atach on Cardizem for suppresion 4. Type 2 VT 5. CKD PLAN: - Will start flecainide today as she has normal LV function and she had a small run of Afib lasting about 3 seconds. - Continue full anticoagulation for stroke prophylaxis with Xarelto. - CHADS VASc score of 5 (HTN, Age, female, Hx CVA)
[2019-05-07] MEDS: Rivaroxaban 10 MG TAB PO SCH (17:12)
[2019-05-07] MEDS: Simvastatin 5 MG TAB PO SCH (21:05)
[2019-05-07] MEDS: Famotidine 20 MG TAB PO SCH (21:05)
[2019-05-07] MEDS: Flecainide 50 MG TAB PO SCH (21:06)
[2019-05-08] MEDS: Mometasone/Formoterol 120 PUFF INHALER INH SCH (07:33)
[2019-05-08] MEDS: Aspirin 81 mg Enteric Coated Tablet PO SCH (08:52)
[2019-05-08] MEDS: Multivit, Therapeutic 1 TAB PO SCH (08:53)
[2019-05-08] MEDS: Flecainide 50 MG TAB PO SCH (08:53)
[2019-05-08 09:16] LABS: Anion Gap 10 mmol/L (10-20); BUN (Urea Nitrogen) 19 mg/dL (9.8-20.1); Calc. Creatinine Clearance 38 mL/min (70-130); Calcium 9.3 mg/dL (7.8-10.44); Carbon Dioxide 36 mmol/L (23-31); Chloride 97 mmol/L (98-107); Estimated GFR-MDRD 57; Glucose 94 mg/dL (83-110); Potassium 4.4 mmol/L (3.5-5.1); Sodium 139 mmol/L (136-145)
--- NOTE | 2019-05-08 09:35 | PRG ---
DATE OF SERVICE: 05/08/2019 SUBJECTIVE: Ms. Beasley is doing better. She remains in sinus rhythm. She underwent cardioversion over the weekend. She is currently on Cardizem, flecainide, and Xarelto. OBJECTIVE: VITAL SIGNS: Blood pressure 137/65, pulse 67, and temperature 98.1. LUNGS: Rhonchi and rales noted bilaterally. HEART: Regular rate and rhythm. ABDOMEN: Soft, nontender, nondistended. EXTREMITIES: No edema. IMPRESSION: 1. New onset atrial fibrillation. 2. Chronic obstructive pulmonary disease. 3. Continued tobacco abuse. RECOMMENDATIONS: 1. Continue Xarelto. 2. Continue Cardizem at 240 q.a.m. 3. Continue flecainide 50 mg IV b.i.d. 4. Stop all tobacco products. 5. Continue pulmonary support. Otherwise, from my standpoint, I have no further recommendations. Plan is to follow up Ms. Beasley as an outpatient. Job ID: [id number]
--- NOTE | 2019-05-08 10:45 | PDOC.HOSPP ---
- Subjective Encounter Date: 05/08/19 Encounter Time: 10:42 Subjective: Ms. Beasley was seen today in follow-up of AFIB. She is feeling better. She has stable dyspnea. - Objective Vital Signs & Weight: Vital Signs (12 hours) Temp Pulse Resp BP Pulse Ox 05/08/19 07:49 98.1 F 57 L 18 137/65 100 05/08/19 04:00 98.0 F 58 L 18 156/70 H 98 Weight Admit Weight 100 lb 6 oz Weight 99 lb I&O: 05/07/19 05/08/19 05/09/19 06:59 06:59 06:59 Intake Total 1590 950 Output Total 200 600 Balance 1390 350 Result Diagrams: 05/07/19 09:03 05/08/19 08:41 Hospitalist ROS - Medication Medications: Active Medications Generic Name Dose Route Start Last Admin Trade Name Freq PRN Reason Stop Dose Admin Acetaminophen 650 mg 05/03/19 02:40 05/06/19 08:52 Tylenol PO 650 mg Q4H PRN Administration Headache/Fever/Mild Pain (1-3) Albuterol Sulfate 1 puff 05/04/19 12:00 05/07/19 12:59 Proventil Hfa INH 1 puff 1200 JOLIE Administration Albuterol/Ipratropium 3 ml 05/03/19 06:30 05/08/19 07:33 Duoneb NEB 3 ml BID-RT JOLIE Administration Aspirin 81 mg 05/03/19 09:00 05/08/19 08:52 Ecotrin PO 81 mg DAILY JOLIE Administration Diltiazem HCl 240 mg 05/05/19 09:00 05/08/19 08:52 Cardizem Cd PO 240 mg DAILY JOLIE Administration Famotidine 20 mg 05/03/19 21:00 05/07/19 21:05 Pepcid PO 20 mg QPM JOLIE Administration Flecainide Acetate 50 mg 05/07/19 21:00 05/08/19 08:53 Tambocor PO 50 mg Q12HR JOLIE Administration Mometasone Furoate/Formoterol Fumar 2 puff 05/03/19 06:30 05/08/19 07:33 Dulera 200 Mcg/5 Mcg Inhaler INH 2 puff BID-RT JOLIE Administration Multivitamins 1 tab 05/03/19 09:00 05/08/19 08:53 Theragran PO 1 tab DAILY JOLIE Administration Rivaroxaban 15 mg 05/05/19 17:00 05/07/19 17:12 Xarelto PO 15 mg 1700 JOLIE Administration Sertraline HCl 150 mg 05/04/19 09:00 05/08/19 08:53 Zoloft PO 150 mg DAILY JOLIE Administration Simvastatin 10 mg 05/04/19 21:00 05/07/19 21:05 Zocor PO 10 mg HS JOLIE Administration - Exam Eye: PERRL Heart: RRR, no rubs, normal peripheral pulses, II/IV Respiratory: CTAB (with poor air movement) Gastrointestinal: soft, non-tender, non-distended, normal bowel sounds, no palpable masses, no hepatomegaly Extremities: no cyanosis, no clubbing, no edema Hosp A/P (1) Atrial fibrillation Code(s): I48.91 - UNSPECIFIED ATRIAL FIBRILLATION Status: Acute (2) COPD (chronic obstructive pulmonary disease) Status: Acute (3) HTN (hypertension) Code(s): I10 - ESSENTIAL (PRIMARY) HYPERTENSION Status: Chronic (4) Chronic kidney disease, stage 2 (mild) Code(s): N18.2 - CHRONIC KIDNEY DISEASE, STAGE 2 (MILD) Status: Chronic - Plan * Atrial Fibrillation- she has remained in sinus * Continue Flecanide, and Cardizem, with Xarelto * She has been cleared for discharge home * She was offered long term due to her deconditioning, but refused
[2019-05-08] MEDS: PROVENTIL INHALER 6.7 G (200 INHALATIONS) INH SCH (11:28)
--- NOTE | 2019-05-08 15:57 | PQF ---
JACINTA STODDARD TONI MD [id number] [facility]-269 [id number] CLINICAL DOCUMENTATION IMPROVEMENT CLARIFICATION FORM: ICD-10 Updated PLEASE DO AN ADDENDUM TO THE PROGRESS NOTE WITH ANY DOCUMENTATION UPDATES OR ADDITIONS AND CARRY THROUGH TO DC SUMMARY. THANK YOU. DATE: 05/08/2019 ATTN: DR ALMANZA Please exercise your independent, professional judgment in responding to the clarification form. Clinical indicators are provided on the bottom of this form for your review Please check appropriate box(s): [ ] Acute Respiratory Failure: [ ] with Hypoxia[ ] with Hypercapnia [X ] Acute On Chronic Respiratory Failure: [ X ] with Hypoxia [ ] with Hypercapnia [ ] Acute Respiratory Failure due to: (etiology) [ ] Other diagnosis [ ] Unable to determine In addition, please specify: Present on Admission (POA): [X ] Yes [ ] No [ ] Unable to determine For continuity of documentation, please document condition throughout progress notes and discharge summary. Thank You. CLINICAL INDICATORS - SIGNS / SYMPTOMS / LABS / RESULTS AND LOCATION IN MR LOW 02 SATS - 05/02 94% ON 5L 05/03 15:37 94% ON 5L 02 05/04 20:00 93% N 3.5L 05/05 15:45 94% ON 2L 05/06 11:14 92% ON 2L 05/06 20:03 90% ON 2L 05/07 11:19 93% 2L Shortness of air - 05/02 H&P Respiratory symptoms within one week of known clinical insult (not due to CHF or fluid overload)- 05/02 H&P RISK FACTORS / RESULTS AND LOCATION IN MR AFIB W/ RVR - 05/02 H&P TYPE 2 ID - 05/02 H&P Tobacco abuse 05/02 H&P TREATMENTS / RESULTS AND LOCATION IN MR Oxygen - 2-5L PER VITALS Monitoring of oxygenation status - 05/02 - 05/08 PER VITALS Respiratory treatments - DUONEBS Q4H PRN PER 05/02 ORDERS ABGs- 05/04 ORDERS Acute Respiratory Failure: ABG pH < 7.35 or > 7.45; Decreased oxygen saturation (<90% room air or < 95% on oxygen); PCO2 > 50 mm Hg; PO2 < 60 mm Hg; Labored or rapid respirations ARDS: Dx Criteria [[place] ARDS]: Respiratory symptoms within one week of a known clinical insult (e.g. shock, infection, surgery, trauma) Bilateral opacities in CXR/Chest CT not due to CHF or fluid (This form is maintained as a part of the permanent medical record) 2014 [employer], [employer]. All Rights Reserved [email or web address] [not provided] MTDD
[2019-05-08] MEDS: Rivaroxaban 10 MG TAB PO SCH (16:35)
[2019-05-08 17:12] VITALS: BP 143/69; TEMP 98.6
--- NOTE | 2019-05-09 03:35 | DIS ---
DATE OF ADMISSION: 05/02/2019 DATE OF DISCHARGE: 05/08/2019 PRIMARY CARE PHYSICIAN: Karlene in [place]. DISCHARGE DISPOSITION: Home. PRIMARY DISCHARGE DIAGNOSES: 1. Atrial fibrillation with rapid ventricular response. 2. Acute on chronic respiratory failure due to chronic obstructive pulmonary disease. 3. Chronic diastolic heart failure. 4. Paroxysmal atrial tachycardia. 5. Hypertension. 6. Hyperlipidemia. 7. History of cerebrovascular accident. 8. History of panic attacks. 9. Chronic anemia. DISCHARGE MEDICATIONS: 1. Xarelto 15 mg p.o. daily. 2. Tambocor 50 mg twice daily. 3. Cardizem CD 240 mg daily. 4. Aspirin 81 mg daily. 5. Ventolin inhaler q.4 hours as needed. 6. Zoloft 150 mg daily. 7. Pravastatin 40 mg at bedtime. 8. Advair Diskus one inhalation twice daily. 9. Albuterol Proventil inhaler one puff q.i.d. as needed. 10. Albuterol nebs q.6 as needed. IMAGING DONE DURING THE HOSPITAL STAY: The patient had an echocardiogram in which the ejection fraction was estimated at 55% to 60%. There was moderate mitral regurgitation and [id number] tricuspid regurgitation. The patient had a CT angiogram of the chest showing no evidence of any acute pulmonary embolism. CODE STATUS: Full code. ALLERGIES: NO KNOWN DRUG ALLERGIES. HOSPITAL COURSE: Ms. Beasley is a pleasant 73-year-old female, who presented to the emergency room with worsening shortness of breath. She was found to be in atrial fibrillation with rapid ventricular response. She was admitted and her heart rate was controlled. She was seen by Cardiology and an echocardiogram was ordered. It showed she had a normal left ventricular function, as well as a normal left atrial size. The decision was made to try to place her back into sinus rhythm. She underwent cardioversion and did go back into sinus. She did have a brief episode of atrial fibrillation the following day. However, for this reason, flecainide was added to her regimen and she was also placed on Xarelto for stroke prevention. She had difficulty with COPD. She was placed on beta alexandra during her hospital stay, but this was discontinued due to worsening COPD. At the time of discharge, her heart rate was controlled between 57 and 63, off the metoprolol and on Cardizem only, as well as flecainide. She was able to be discharged home. She did have some significant weakness and I offered her to be evaluated for intermediate stay, but she refused. She felt she had plenty of help at home. Therefore, she will be discharged home with home health and with close outpatient followup. She is to see her primary care physician in 1 week and also Cardiology as instructed. Job ID: [id number]
--- NOTE | 2019-05-09 15:46 | ECHO ---
DATE OF SERVICE: 05/06/19 PREPROCEDURE DIAGNOSIS: Atrial fibrillation. Transesophageal echo is performed for preparation for cardioversion. The Anesthesiology department provided with sedation for the patient. Please see their notes for det ails. After adequate sedation was achieved, transesophageal probe was inserted into the mouth and into the esophagus. Multiplanar views were obtained. Left ventricle is normal size, normal wall thickness. Systolic function appears to be normal. Estima sandeep EF at 50-55%. Left atrium is dilated. Left atrial appendage is bilobed. No evidence of mass or thrombus. Reduced velocities. Right atrium is mildly dilated. The interatrial septum has a very small patent foramen ovale. Mostly left to right shunting. The right ventricle is normal size with normal systolic function. Aortic valve is sclerotic but opens well. No stenosis. There is mild aortic valve regurgitation. Mitral valve is structurally normal. There is moderate MR. Tricuspid valve is structurally normal. There is mild TR. Pulmonary valve is not well seen. CONCLUSIONS: 1. Normal systolic function, EF at 50-55%. 2. Atrial fibrillation during study. 3. Left atrial enlargement. 4. Bilobed left atrial appendage with no evidence of mass or thrombus. 5. Moderate MR. 6. Mild TR. 7. Small patent foramen ovale. Mostly left to right shunting. 7. Aortic valve sclerosis with moderate aortic insufficiency.
--- NOTE | 2019-05-09 15:54 | OP ---
DATE OF PROCEDURE: 05/06/19 SURGEON: Jayme You M.D. PREOPERATIVE DIAGNOSIS: Atrial fibrillation. POSTOPERATIVE DIAGNOSIS: Atrial fibrillation. PROCEDURE: Direct current synchronized cardioversion. PROCEDURE IN DETAIL: The patient is a pleasant 73-year-old white female who comes to the procedure area for a planned card ioversion. She was cleared from thrombus with a transesophageal echo done prior. The anesthesia depar tment provided with sedation for the patient. Once adequately sedated, a single synchronized 100 joules shock was delivered successfully converting her from atrial fibrillation into sinus bradycardia. The patient tolerated the procedure well. RECOMMENDATIONS: 1. Continued anticoagulation and antiarrhythmics. 2. May discharge home in the next 24 to 48 hours.
== END 2019-05-08 17:25 | disposition home or self-care (01) | DRG 280 ==
LOC: ERS 19:09 → 2NO 22:37
PROVIDERS: ADMIT Internal Medicine; ATTEND Internal Medicine
DX: I48.91 Unspecified atrial fibrillation (principal); J96.20 Acute and chronic respiratory failure, unspecified whether with hypoxia or hypercapnia; I21.A1 Myocardial infarction type 2; I50.32 Chronic diastolic (congestive) heart failure; N17.9 Acute kidney failure, unspecified; I13.0 Hypertensive heart and chronic kidney disease with heart failure and stage 1 through stage 4 chronic kidney disease, or unspecified chronic kidney disease; E87.3 Alkalosis; E87.2 Acidosis; I47.1 Supraventricular tachycardia; F41.0 Panic disorder [episodic paroxysmal anxiety]; E78.5 Hyperlipidemia, unspecified; J44.9 Chronic obstructive pulmonary disease, unspecified; E83.42 Hypomagnesemia; D63.1 Anemia in chronic kidney disease; N18.3 Chronic kidney disease, stage 3 (moderate); M81.0 Age-related osteoporosis without current pathological fracture; I34.0 Nonrheumatic mitral (valve) insufficiency; F41.9 Anxiety disorder, unspecified; F17.210 Nicotine dependence, cigarettes, uncomplicated; Z86.73 Personal history of transient ischemic attack (TIA), and cerebral infarction without residual deficits
CPT/HCPCS: 36415; 36416; 71275; 80048; 82553; 82565; 82607; 82746; 82805; 83735; 84443; 84484; 85014; 85018; 85025; 85027; 85049; 92960; 93005; 93306; 93312; 94640; 94760; 96365; 96372; J1160; J1650; J2704; J2920; J3475; J3490; J7620; Q9967

== ENCOUNTER 2019-05-08 19:10 | Inpatient (IN) | payer MEDICARE, MEDICAID ==
--- NOTE | 2019-05-08 19:36 | RAD ---
Exam: Chest one view HISTORY:Low O2 saturation Comparison: 05/02/2019 FINDINGS: Cardiac silhouette: Normal Aorta: Atherosclerosis Pulmonary vessels: Normal Costophrenic angles: Clear LUNGS: Hyperinflation, with chronic changes. Pneumothorax: None Osseous abnormalities: Old rib fractures IMPRESSION: No significant interval change.
[2019-05-08] MEDS ORDERED: methylPREDNISolone Sod Succ/PF 125 MG/2 ML VIAL ONE (19:52)
[2019-05-08 20:00] LABS: #Lymphocytes 0.8 thou/uL (1.20-3.40); #Monocytes 2.1 thou/uL (0.11-0.59); #Neutrophils 13.5 thou/uL (1.40-6.50); %Basophils 0.1 % (0.0-1.0); %Eosinophils 0.1 % (0.0-10.0); %Monocytes 12.8 % (0.0-10.0); Hemoglobin 9.6 g/dL (12.0-16.0); Mean Corpuscular HGB CONC 31.5 g/dL (32.0-36.0); Mean Corpuscular Hemoglobin 31.2 pg (27.0-31.0); Mean Corpuscular Volume 98.8 fL (78.0-98.0); Mean Platelet Volume 7.7 fL (7.4-10.4); Platelet Count 332 thou/uL (130-400); RBC Distribution Width 11.8 % (11.5-14.5); Red Blood Cell (RBC) Count 3.09 mill/uL (4.20-5.40); White Blood Cell (WBC) Count 16.5 thou/uL (4.8-10.8)
[2019-05-08 20:21] LABS: ALT (SGPT) 101 U/L (8-55); AST (SGOT) 71 U/L (5-34); Albumin 4.6 g/dL (3.4-4.8); Alkaline Phosphatase 72 U/L (40-110); Anion Gap 15 mmol/L (10-20); BUN (Urea Nitrogen) 24 mg/dL (9.8-20.1); Bilirubin, Total 0.3 mg/dL (0.2-1.2); Calc. Creatinine Clearance 0 mL/min (70-130); Calcium 9.9 mg/dL (7.8-10.44); Carbon Dioxide 33 mmol/L (23-31); Chloride 96 mmol/L (98-107); Estimated GFR-MDRD 46; Globulin 2.9 g/dL (2.4-3.5); Glucose 124 mg/dL (83-110); Potassium 4.3 mmol/L (3.5-5.1); Protein, Total 7.5 g/dL (6.0-8.3); Sodium 140 mmol/L (136-145)
[2019-05-08] MEDS ORDERED: Albuterol Sulfate 2.5 mg/0.5 ml Neb ONE ×3 (20:46)
[2019-05-08] MEDS ORDERED: Albuterol Sulfate 2.5 mg/3 ml Neb ONE (20:46)
[2019-05-08] MEDS ORDERED: Bacteriostatic Water 30 ML VIAL FS PRN (23:02)
[2019-05-09] MEDS: methylPREDNISolone Sod Succ/PF 125 MG/2 ML VIAL IVP SCH ×3 (01:56→10:00)
[2019-05-09] MEDS ORDERED: Mometasone/Formoterol 120 PUFF INHALER INH SCH (06:30)
[2019-05-09] MEDS ORDERED: methylPREDNISolone Sod Succ 40 MG VIAL IVP SCH ×2 (09:00→09:45)
[2019-05-09] MEDS ORDERED: Acetaminophen 325 MG TAB PO PRN (09:18)
[2019-05-09] MEDS ORDERED: hydrALAZINE 20 MG/ML VIAL SLOW IVP PRN (09:18)
[2019-05-09] MEDS: Aspirin 81 mg Enteric Coated Tablet PO SCH (09:26)
[2019-05-09] MEDS: Flecainide 50 MG TAB PO SCH ×2 (09:27→20:16)
[2019-05-09] MEDS ORDERED: Bupropion 150 MG SR TAB PO SCH (10:00)
--- NOTE | 2019-05-09 11:27 | ULT ---
BILATERAL CAROTID DUPLEX ULTRASOUND: HISTORY: CVA. TECHNIQUE: Grayscale, color-flow and spectral Doppler ultrasound imaging of the extracranial carotid artery syst ems was performed bilaterally. FINDINGS: Scattered calcified sclerotic plaque is seen in the carotid arteries bilaterally. There is moderate (50-69%) stenosis involving the right internal carotid artery based on elevated pea k systolic velocity of 162.2 cm/s. The right ICA/CCA ratio is 1.5. There is less than 50% maximal stenosis in the left ICA based on a peak systolic velocity of 105.7 cm /s and an ICA/CCA ratio of 1.01. Diminished peak systolic velocities were present in the left internal carotid artery on prior study and 2009. There was also prominent calcified atherosclerotic p laque in the distal left common carotid artery on the prior study which is less extensive on today's exam. This could be related to interval postsurgical change. Clinical correlation suggested. Elevated peak systolic velocities are seen in each external carotid artery suggesting significant joe nosis. Vertebral arteries: Antegrade flow is demonstrated in the vertebral arteries bilaterally. IMPRESSION: 1. Moderate (50-69%) stenosis involving the right internal carotid artery. Moderate stenosis was also noted within the right internal carotid artery on prior study on 01/09/2010. 2. No dynamically significant stenosis in the left internal carotid artery based on peak systolic pepito ocity measurements.
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
[2019-05-09] MEDS ORDERED: Magnesium 2 GM/50 ML 2 GM in Premix Bag 1 BAG IVPB SCH (13:30)
[2019-05-09] MEDS: Rivaroxaban 15 MG TAB PO SCH (16:45)
--- NOTE | 2019-05-09 17:43 | CON ---
DATE OF CONSULTATION: HISTORY OF PRESENT ILLNESS: Sharla Beasley is a 73-year-old female with long-term tobacco abuse, who was discharged from the hospital, turned around, went home and came back. She developed some heaviness in the chest symptoms, shortness of breath, coughing, and wheezing. She has smoked a pack a day in the past. Now, she smokes a pack of three several days. Oxygen saturations were in the 65 apparently. Most day, she can walk only in the house 50 feet, for which she does get short of breath. Denies any prior history of pneumonia, TB, or asthma. PAST MEDICAL HISTORY: Pertinent for COPD, previous CVA, previous peripheral vascular disease, and previous osteoporosis. PAST SURGICAL HISTORY: Previous surgeries, left carotid tonsils and adenoids. HABITS: Alcohol, none. Tobacco, as noted. HOME MEDICATIONS: 1. Zoloft 150. 2. Xarelto 15. 3. Pravachol 40. 4. Advair 100. 5. Tambocor 50. 6. Cardizem CD. 7. Aspirin. SOCIAL HISTORY: Disabled. REVIEW OF SYSTEMS: Ten-point negative. PHYSICAL EXAMINATION: VITAL SIGNS: Saturations are 96% on 2 L, temperature 97, pulse 75, and blood pressure 170/80. CHEST: Bilateral wheezing, prolonged expiration. CARDIAC: Normal S1 and S2. No gallops. ABDOMEN: No masses. LABORATORY DATA: Creatinine 1.16. Chest x-ray, hyperinflation, ALT is 101. White count 16,000 and H and H 9 and 30. Last echocardiogram done shows normal EF. ASSESSMENT AND PLAN: Chronic obstructive pulmonary disease exacerbation, ongoing tobacco abuse, atrial fibrillation, and severe deconditioning. I have added Dulera to her present regime. Continue supportive care. Since she was having pressure in the chest, I may reconsult Cardiology to see whether she needs any additional intervention. Consultation note, 70 minutes 50% direct patient care. Job ID: [id number]
[2019-05-09] MEDS: Mometasone/Formoterol 120 PUFF INHALER INH SCH (18:59)
[2019-05-09] MEDS: Atorvastatin Calcium 10 MG TAB PO SCH (20:16)
[2019-05-09] MEDS: predniSONE 20 MG TAB PO SCH (20:16)
[2019-05-09] MEDS: Bupropion 150 MG SR TAB PO SCH (20:17)
[2019-05-10] MEDS: Mometasone/Formoterol 120 PUFF INHALER INH SCH ×2 (08:00→18:52)
[2019-05-10] MEDS ORDERED: methylPREDNISolone Sod Succ 40 MG VIAL IVP SCH (09:00)
[2019-05-10] MEDS: Aspirin 81 mg Enteric Coated Tablet PO SCH (09:12)
[2019-05-10] MEDS: predniSONE 20 MG TAB PO SCH ×2 (09:12→21:35)
[2019-05-10] MEDS: Flecainide 50 MG TAB PO SCH ×2 (09:13→21:35)
[2019-05-10] MEDS: Bupropion 150 MG SR TAB PO SCH ×2 (12:49→21:42)
--- NOTE | 2019-05-10 13:38 | PRG ---
DATE OF SERVICE: 05/10/2019 SUBJECTIVE: Sharla Beasley is much better this morning. She is less short of breath, less wheezing. OBJECTIVE: VITAL SIGNS: Temperature 98, pulse 73, blood pressure 163/72, respiratory rate 18. Afebrile. CHEST: Minimal wheezing. CARDIAC: Normal S1, S2. No gallops. ABDOMEN: No masses. ASSESSMENT: 1. stiil smoking? 2. Chronic obstructive pulmonary disease. 3. Chronic asthma. PLAN: Switch over to oral medication. Hopefully, she can be discharged home in the next several days. Job ID: [id number] MTDD
[2019-05-10 13:41] LABS: Hemoglobin 8.8 g/dL (12.0-16.0); Mean Corpuscular HGB CONC 30.6 g/dL (32.0-36.0); Mean Corpuscular Hemoglobin 30.8 pg (27.0-31.0); Mean Platelet Volume 8.2 fL (7.4-10.4); Platelet Count 350 thou/uL (130-400); Red Blood Cell (RBC) Count 2.86 mill/uL (4.20-5.40); White Blood Cell (WBC) Count 17.8 thou/uL (4.8-10.8)
[2019-05-10 13:59] LABS: Band 2 % (5-11); Eosinophils 1 % (0-10); Hypochromia SLIGHT = 6-15 cells (100X) (0-5/hpf); Lymphocytes 2 % (21-51); MDiff Complete? YES; Monocytes 12 % (0-10); Neutrophil 83 % (42-75); Platelet Morphology Comment Appears Adequate; Polychromasia SLIGHT = 2-3 cells (100X) (0-2/hpf)
[2019-05-10 15:13] LABS: Anion Gap 11 mmol/L (10-20); BUN (Urea Nitrogen) 33 mg/dL (9.8-20.1); Calc. Creatinine Clearance 34 mL/min (70-130); Carbon Dioxide 35 mmol/L (23-31); Chloride 98 mmol/L (98-107); Estimated GFR-MDRD 49; Potassium 4.4 mmol/L (3.5-5.1); Sodium 140 mmol/L (136-145)
[2019-05-10 15:14] LABS: Calcium 9.7 mg/dL (7.8-10.44); Glucose 124 mg/dL (83-110)
--- NOTE | 2019-05-10 16:42 | PDOC.HOSPP ---
- Subjective Encounter Date: 05/10/19 Encounter Time: 16:40 Subjective: Ms. Beasley was seen today in follow-up of COPD exacerbation. She does not have any new complaints. She is breathing a little better. - Objective Vital Signs & Weight: Vital Signs (12 hours) Pulse Resp BP Pulse Ox 05/10/19 14:24 100 24 H 95 05/10/19 10:06 78 163/72 H 05/10/19 08:00 98 Weight Admit Weight 101 lb 6.602 oz Weight 101 lb 6.602 oz I&O: 05/09/19 05/10/19 05/11/19 06:59 06:59 06:59 Intake Total 410 2500 Balance 410 2500 Result Diagrams: 05/10/19 07:33 05/10/19 07:33 Hospitalist ROS - Medication Medications: Active Medications Generic Name Dose Route Start Last Admin Trade Name Freq PRN Reason Stop Dose Admin Acetaminophen 650 mg 05/09/19 09:18 05/09/19 20:17 Tylenol PO 650 mg Q4H PRN Administration Headache/Fever/Mild Pain (1-3) Albuterol/Ipratropium 3 ml 05/09/19 13:00 05/10/19 14:24 Duoneb NEB 3 ml [id number] JOLIE Administration Aspirin 81 mg 05/09/19 09:00 05/10/19 09:12 Ecotrin PO 81 mg DAILY JOLIE Administration Atorvastatin Calcium 10 mg 05/09/19 21:00 05/09/19 20:16 Lipitor PO 10 mg HS JOLIE Administration Bupropion HCl 150 mg 05/09/19 21:00 05/10/19 12:49 Wellbutrin Sr PO 150 mg BID JOLIE Administration Diltiazem HCl 240 mg 05/09/19 09:00 05/10/19 10:06 Cardizem Cd PO 240 mg DAILY JOLIE Administration Flecainide Acetate 50 mg 05/09/19 09:00 05/10/19 09:13 Tambocor PO 50 mg Q12HR JOLIE Administration Mometasone Furoate/Formoterol Fumar 2 puff 05/09/19 18:30 05/10/19 08:00 Dulera 200 Mcg/5 Mcg Inhaler INH 2 puff BID-RT JOLIE Administration Prednisone 20 mg 05/09/19 21:00 05/10/19 09:12 Prednisone PO 20 mg BID JOLIE Administration Rivaroxaban 15 mg 05/09/19 17:00 05/09/19 16:45 Xarelto PO 15 mg 1700 OJLIE Administration - Exam Eye: PERRL Heart: RRR, no murmur, no gallops, no rubs, normal peripheral pulses Respiratory: CTAB (except for an occsional wheeze, no rhonchi) Gastrointestinal: soft, non-tender, non-distended, normal bowel sounds, no palpable masses, no hepatomegaly Extremities: no cyanosis, no clubbing, no edema Hosp A/P (1) Acute on chronic respiratory failure with hypoxia Code(s): J96.21 - ACUTE AND CHRONIC RESPIRATORY FAILURE WITH HYPOXIA Status: Acute (2) Atrial fibrillation Code(s): I48.91 - UNSPECIFIED ATRIAL FIBRILLATION Status: Chronic (3) COPD exacerbation Code(s): J44.1 - CHRONIC OBSTRUCTIVE PULMONARY DISEASE W (ACUTE) EXACERBATION Status: Acute (4) Diastolic CHF Code(s): I50.30 - UNSPECIFIED DIASTOLIC (CONGESTIVE) HEART FAILURE Status: Acute (5) HTN (hypertension) Code(s): I10 - ESSENTIAL (PRIMARY) HYPERTENSION Status: Chronic - Plan * Acute on chronic respiratory failure due to COPD- slowly improving * Pulmonology recommendations appreciated * Continue inhaled beta- agonist, duonebs, and steroids, which have been transition to p.o. * AFIB- her heart rate has been variable- continue Cardizem, and Xarelto for CVA prevention * Chronic diastolic heart failure- compensated * She has very little respiratory reserve- hopefully she can be transitioned home soon
--- NOTE | 2019-05-10 17:04 | PDOC.EVN ---
Event Note - Event Note Event Note: Patient's heart rate has been persistently between 120-140, and irregular. will transfer her to Telemetry, and place her on a Cardizem drip. Consult Cardiology.
[2019-05-10] MEDS ORDERED: Diltiazem 125 MG in Sodium Chloride 0.9% 100 ML IVPB SCH (18:00)
[2019-05-10] MEDS: Rivaroxaban 15 MG TAB PO SCH (18:03)
[2019-05-10] MEDS: Diltiazem 125 MG in Sodium Chloride 0.9% 100 ML IVPB SCH (18:39)
[2019-05-10] MEDS: Atorvastatin Calcium 10 MG TAB PO SCH (21:35)
[2019-05-11] MEDS ORDERED: Flecainide 50 MG TAB PO SCH (06:30)
[2019-05-11] MEDS: Aspirin 81 mg Enteric Coated Tablet PO SCH (08:07)
[2019-05-11] MEDS: predniSONE 20 MG TAB PO SCH ×2 (08:08→21:14)
[2019-05-11] MEDS: Bupropion 150 MG SR TAB PO SCH ×2 (08:08→21:14)
[2019-05-11 08:14] LABS: #Basophils 0.1 thou/uL (0.0-0.2); #Lymphocytes 0.7 thou/uL (1.20-3.40); #Monocytes 1.4 thou/uL (0.11-0.59); #Neutrophils 12.9 thou/uL (1.40-6.50); %Basophils 0.8 % (0.0-1.0); %Eosinophils 0.1 % (0.0-10.0); %Lymphocytes 4.7 % (21.0-51.0); %Monocytes 9.1 % (0.0-10.0); %Neutrophils 85.4 % (42.0-75.0); Hemoglobin 9.9 g/dL (12.0-16.0); Mean Corpuscular HGB CONC 31.3 g/dL (32.0-36.0); Mean Platelet Volume 7.4 fL (7.4-10.4); Platelet Count 388 thou/uL (130-400); RBC Distribution Width 12.1 % (11.5-14.5); Red Blood Cell (RBC) Count 3.19 mill/uL (4.20-5.40); White Blood Cell (WBC) Count 15.1 thou/uL (4.8-10.8)
--- NOTE | 2019-05-11 08:17 | PDOC.HOSPP ---
- Subjective Encounter Date: 05/11/19 Encounter Time: 07:30 Subjective: Ms. Beasley is a 73 y/o female seen in follow up today for COPD exacerbation. She had an episode of HR in the 120-140 range with irregular rhythm last night, was started on cardizem and transfered to telemetry. She still complains of palpitations, but denies CP, SOB, dizziness or weakness. She has a sore throat that started yesterday. Denies eye irritation, rhinorrhea or congestion. She is not coughing more than her baseline, and her cough is non productive and non bloody. - Objective Vital Signs & Weight: Vital Signs (12 hours) Temp Pulse Resp BP BP Pulse Ox 05/11/19 08:07 85 137/83 05/11/19 08:05 98.4 F 85 18 137/83 97 05/11/19 03:00 98.1 F 105 H 18 126/83 99 05/11/19 01:44 98 05/11/19 01:05 112 H 18 95 05/10/19 23:57 98.1 F 119 H 16 130/75 99 05/10/19 21:00 98.1 F 118 H 22 H 114/54 L 98 Weight Admit Weight 46 kg Weight 46 kg I&O: 05/10/19 05/11/19 05/12/19 06:59 06:59 06:59 Intake Total 2500 310 Output Total 300 Balance 2500 10 Result Diagrams: 05/11/19 08:06 05/10/19 07:33 Hospitalist ROS - Review of Systems Constitutional: denies: fever, chills, weakness Eyes: denies: conjunctivae inflammation, redness ENT: reports: throat pain. denies: nose discharge, nose congestion Respiratory: reports: cough. denies: shortness of breath, hemoptysis Cardiovascular: reports: palpitations. denies: chest pain Gastrointestinal: denies: nausea, vomiting, abdominal pain, diarrhea Genitourinary: denies: dysuria Neurological: denies: weakness - Medication Medications: Active Medications Generic Name Dose Route Start Last Admin Trade Name Freq PRN Reason Stop Dose Admin Acetaminophen 650 mg 05/09/19 09:18 05/09/19 20:17 Tylenol PO 650 mg Q4H PRN Administration Headache/Fever/Mild Pain (1-3) Albuterol/Ipratropium 3 ml 05/09/19 13:00 05/11/19 01:05 Duoneb NEB 3 ml [id number] JOLIE Administration Aspirin 81 mg 05/09/19 09:00 05/11/19 08:07 Ecotrin PO 81 mg DAILY JOLIE Administration Atorvastatin Calcium 10 mg 05/09/19 21:00 05/10/19 21:35 Lipitor PO 10 mg HS JOLIE Administration Bupropion HCl 150 mg 05/09/19 21:00 05/11/19 08:08 Wellbutrin Sr PO 150 mg BID JOLIE Administration Diltiazem HCl 240 mg 05/09/19 09:00 05/11/19 08:07 Cardizem Cd PO 240 mg DAILY JOLIE Administration Diltiazem HCl 125 mg/ Sodium 125 mls @ 5 mls/hr 05/10/19 18:00 05/10/19 18:39 Chloride IVPB 125 mls INF JOLIE Administration Protocol 5 MG/HR Mometasone Furoate/Formoterol Fumar 2 puff 05/09/19 18:30 05/10/19 18:52 Dulera 200 Mcg/5 Mcg Inhaler INH 2 puff BID-RT JOLIE Administration Prednisone 20 mg 05/09/19 21:00 05/11/19 08:08 Prednisone PO 20 mg BID JOLIE Administration Rivaroxaban 15 mg 05/09/19 17:00 05/10/19 18:03 Xarelto PO 15 mg 1700 JOLIE Administration - Exam General Appearance: NAD, awake alert Eye: PERRL, anicteric sclera ENT: moist mucosa ENT - other findings: Oral and pharyngeal mucosa moist and pink without lesions Neck: supple, no lymphadenopathy Heart: no murmur, irregular Respiratory: CTAB Respiratory - other findings: Poor air movement Gastrointestinal: soft, non-tender, non-distended Extremities: negative: no cyanosis, no clubbing, no edema Hosp A/P (1) Acute on chronic respiratory failure with hypoxia Code(s): J96.21 - ACUTE AND CHRONIC RESPIRATORY FAILURE WITH HYPOXIA Status: Acute (2) Atrial fibrillation Code(s): I48.91 - UNSPECIFIED ATRIAL FIBRILLATION Status: Chronic (3) Diastolic CHF Code(s): I50.30 - UNSPECIFIED DIASTOLIC (CONGESTIVE) HEART FAILURE Status: Acute (4) Sore throat Code(s): J02.9 - ACUTE PHARYNGITIS, UNSPECIFIED Status: Acute - Plan Ms. Ramos is a 73 y/o female with COPD exacerbation and has poor respiratory reserve. -Acute on chronic respiratory failure: Results from PFT yesterday showed FEV1/ FVC ratio at 59% of predicted and FEV1 of 24% predicted - putting her at very severe COPD (GOLD 4). Plan is to continue steroids, duonebs and dulera. She has not been on empiric abx this visits, she remains afebrile, does not have a productive cough and plan is to monitor for improvement of WBC (CBC not drawn today yet, WBC - 17.8 yesterday). -Afib: Continue Cardizem drip and xarelto. Patient was in afib this morning, but her heart rate was 105 and controlled. -CHF (diastolic): Compensated, no signs of volume overload (peripheral edema, SOB). -Sore throat: Started yesterday, afebrile, HEENT exam was negative. Likely viral in nature.
[2019-05-11] MEDS: Mometasone/Formoterol 120 PUFF INHALER INH SCH ×2 (08:24→18:51)
[2019-05-11 08:34] LABS: Anion Gap 12 mmol/L (10-20); BUN (Urea Nitrogen) 26 mg/dL (9.8-20.1); Calc. Creatinine Clearance 42 mL/min (70-130); Calcium 9.8 mg/dL (7.8-10.44); Carbon Dioxide 35 mmol/L (23-31); Chloride 98 mmol/L (98-107); Estimated GFR-MDRD 62; Glucose 109 mg/dL (83-110); Potassium 4.1 mmol/L (3.5-5.1); Sodium 141 mmol/L (136-145)
--- NOTE | 2019-05-11 09:49 | PRG ---
DATE OF SERVICE: 05/11/2019 SUBJECTIVE: This morning, she is better. She is transferred to telemetry for SVT. OBJECTIVE: VITAL SIGNS: Pulse 85, temperature 98, blood pressure 137/83, saturations are 97% on 2 L. CHEST: Decreased breath sounds. No wheezing. CARDIAC: Normal S1 and S2. No gallops. ABDOMEN: Soft. LABORATORY DATA: Bicarb is 35. ASSESSMENT: 1. Respiratory failure. 2. Chronic obstructive pulmonary disease. 3. Supraventricular tachycardia. 4. Severe deconditioning. PLAN: Continue Cardizem. Continue supportive care. Continue prednisone. Home when stable. Job ID: [id number]
--- NOTE | 2019-05-11 09:54 | CON ---
DATE OF CONSULTATION: 05/11/2019 REASON FOR CONSULTATION: Recurrent atrial fibrillation. HISTORY OF PRESENT ILLNESS: Ms. Beasley is a very pleasant 73-year-old woman, who recently saw and evaluated. She was seen and evaluated for atrial fibrillation with RVR. She was placed on flecainide, underwent KEIRY and cardioverted. She did well and maintained sinus rhythm. She has returned with recurrent atrial fibrillation. She had increased shortness of breath and palpitations. PAST MEDICAL HISTORY: COPD, diastolic dysfunction, atrial fibrillation, hypertension, hyperlipidemia. PAST SURGICAL HISTORY: Carotid endarterectomy. ALLERGIES: NONE. SOCIAL HISTORY: She is with no children. REVIEW OF SYSTEMS: A 10-point review of systems is reviewed as above, otherwise negative. PHYSICAL EXAMINATION: GENERAL: Patient is a pleasant woman who is in no acute distress. The patient appears their stated age. VITAL SIGNS: Blood pressure 137/93, pulse 85, temperature afebrile. NEUROLOGIC: The patient is alert and oriented x3 with no focal neurologic deficits. HEENT: Sclerae without icterus. Mouth has moist mucous membranes with normal pallor. NECK: No JVD. Carotid upstroke brisk. No bruits bilaterally. LUNGS: Clear to auscultation with unlabored respirations. BACK: No scoliosis or kyphosis. CARDIAC: Regular rate and rhythm with normal S1 and S2. No S3 or S4 noted. No significant rubs, murmurs, thrills, or gallops noted throughout the precordium. PMI is not displaced. There is no parasternal heave. ABDOMEN: Soft, nontender, nondistended. No peritoneal signs present. No hepatosplenomegaly. No abnormal striae. EXTREMITIES: 2+ femoral and 2+ dorsalis pedis pulses. No cyanosis, clubbing, or edema. SKIN: No gross abnormalities. PERTINENT LABORATORY DATA: Hemoglobin 9.9, white blood cell count 15.1. Creatinine 0.9. IMPRESSION: 1. Recurrent atrial fibrillation. 2. Shortness of breath. 3. Chronic obstructive pulmonary disease. RECOMMENDATIONS: Ms. Beasley did well and felt well, being in sinus rhythm. Now, she has recurred. Her symptoms likely related to atrial fibrillation. She was on flecainide 50 mg one p.o. b.i.d. We will increase to 100 mg one p.o. b.i.d. We will continue anticoagulation therapy. She states she has not missed a dose of her blood thinner. She underwent a KEIRY with no thrombus a week and half ago. I would therefore recommend cardioversion. I discussed procedure in full detail. Risks include stroke, need for repeat cardioversion, failed cardioversion. If cardioversion fails or is recurrent, may consider EP consultation. Job ID: [id number]
--- NOTE | 2019-05-11 13:39 | PDOC.HOSPP ---
- Subjective Encounter Date: 05/11/19 Encounter Time: 13:37 Subjective: Mr. Beasley was seen today in follow-up of AFIB and COPD exacerbation. She is feeling a bit better. She still has some dyspnea. - Objective Vital Signs & Weight: Vital Signs (12 hours) Temp Pulse Resp BP BP BP Pulse Ox 05/11/19 12:00 98.5 F 107 H 16 145/70 H 98 05/11/19 08:07 85 137/83 05/11/19 08:05 98.4 F 85 18 137/83 97 05/11/19 03:00 98.1 F 105 H 18 126/83 99 05/11/19 01:44 98 Weight Admit Weight 101 lb 6.602 oz Weight 101 lb 6.602 oz I&O: 05/10/19 05/11/19 05/12/19 06:59 06:59 06:59 Intake Total 2500 310 Output Total 300 Balance 2500 10 Result Diagrams: 05/11/19 08:06 05/11/19 08:06 Hospitalist ROS - Medication Medications: Active Medications Generic Name Dose Route Start Last Admin Trade Name Freq PRN Reason Stop Dose Admin Acetaminophen 650 mg 05/09/19 09:18 05/09/19 20:17 Tylenol PO 650 mg Q4H PRN Administration Headache/Fever/Mild Pain (1-3) Albuterol/Ipratropium 3 ml 05/09/19 13:00 05/11/19 08:23 Duoneb NEB 3 ml [id number] JOLIE Administration Aspirin 81 mg 05/09/19 09:00 05/11/19 08:07 Ecotrin PO 81 mg DAILY JOLIE Administration Atorvastatin Calcium 10 mg 05/09/19 21:00 05/10/19 21:35 Lipitor PO 10 mg HS JOLIE Administration Bupropion HCl 150 mg 05/09/19 21:00 05/11/19 08:08 Wellbutrin Sr PO 150 mg BID JOLIE Administration Diltiazem HCl 240 mg 05/09/19 09:00 05/11/19 08:07 Cardizem Cd PO 240 mg DAILY JOLIE Administration Diltiazem HCl 125 mg/ Sodium 125 mls @ 5 mls/hr 05/10/19 18:00 05/10/19 18:39 Chloride IVPB 125 mls INF JOLIE Administration Protocol 5 MG/HR Mometasone Furoate/Formoterol Fumar 2 puff 05/09/19 18:30 05/11/19 08:24 Dulera 200 Mcg/5 Mcg Inhaler INH 2 puff BID-RT JOLIE Administration Prednisone 20 mg 05/09/19 21:00 05/11/19 08:08 Prednisone PO 20 mg BID JOLIE Administration Rivaroxaban 15 mg 05/09/19 17:00 05/10/19 18:03 Xarelto PO 15 mg 1700 JOLIE Administration - Exam Eye: PERRL Heart: irregular Respiratory: CTAB (with decreased air movement) Gastrointestinal: soft, non-tender, non-distended, normal bowel sounds, no palpable masses, no hepatomegaly Extremities: no cyanosis Hosp A/P (1) Acute on chronic respiratory failure with hypoxia Code(s): J96.21 - ACUTE AND CHRONIC RESPIRATORY FAILURE WITH HYPOXIA Status: Acute (2) Atrial fibrillation Code(s): I48.91 - UNSPECIFIED ATRIAL FIBRILLATION Status: Chronic (3) COPD exacerbation Code(s): J44.1 - CHRONIC OBSTRUCTIVE PULMONARY DISEASE W (ACUTE) EXACERBATION Status: Acute (4) Diastolic CHF Code(s): I50.30 - UNSPECIFIED DIASTOLIC (CONGESTIVE) HEART FAILURE Status: Acute (5) HTN (hypertension) Code(s): I10 - ESSENTIAL (PRIMARY) HYPERTENSION Status: Chronic - Plan * AFIB with RVR- she is still in atrial fibrillation- her heart rate is controlled on Cardizem * Plan is for possible repeat cardioversion on Wednesday * Continue Xarelto for stroke prevention * Continue inhaled beta- agonist, duonebs, and steroids, * Pulmonary Function tests were noted- she has severe COPD * Chronic diastolic heart failure- compensated
[2019-05-11] MEDS: Rivaroxaban 15 MG TAB PO SCH (16:41)
[2019-05-11] MEDS: Diltiazem 125 MG in Sodium Chloride 0.9% 100 ML IVPB SCH (20:25)
[2019-05-11] MEDS: Flecainide 50 MG TAB PO SCH (21:14)
[2019-05-11] MEDS: Atorvastatin Calcium 10 MG TAB PO SCH (21:14)
[2019-05-12] MEDS ORDERED: PROPOFOL 20 ML ONE (07:20)
[2019-05-12] MEDS ORDERED: Lidocaine 1% (PF) 30 ML VIAL ONE (07:20)
[2019-05-12] MEDS ORDERED: Albuterol Sulfate HFA (OR ONLY) ONE (07:27)
[2019-05-12] MEDS: Mometasone/Formoterol 120 PUFF INHALER INH SCH ×2 (08:05→18:16)
--- NOTE | 2019-05-12 09:05 | PRG ---
DATE OF SERVICE: 05/12/2019 SUBJECTIVE: Ramos is status post cardioversion. OBJECTIVE: VITAL SIGNS: Heart rate is 63, pulse 88, respiratory rat 18, and blood pressure 120/80. GENERAL: No shortness of breath, coughing, or wheezing. CHEST: Decreased breath sounds. No wheezing. CARDIAC: Normal S1 and S2. No gallops. ABDOMEN: No masses. IMPRESSION: 1. Chronic obstructive pulmonary disease. 2. Cardiac arrhythmias. The patient is much improved. Disposition as per Cardiology. Meantime, continue neb treatments. Job ID: [id number]
--- NOTE | 2019-05-12 09:16 | OP ---
DATE OF PROCEDURE: 05/12/2019 PREPROCEDURE DIAGNOSIS: Atrial fibrillation. POSTPROCEDURE DIAGNOSIS: Sinus rhythm. PROCEDURE PERFORMED: Synchronized cardioversion. DESCRIPTION OF PROCEDURE: Ms. Beasley was consented for cardioversion. She underwent synchronized cardioversion at 150 joules x1 successfully. IMPRESSION: Synchronized cardioversion at 150 joules. Job ID: [id number]
[2019-05-12] MEDS: Bupropion 150 MG SR TAB PO SCH (09:41)
[2019-05-12] MEDS: Flecainide 50 MG TAB PO SCH ×2 (09:41→20:56)
[2019-05-12] MEDS: Aspirin 81 mg Enteric Coated Tablet PO SCH (09:41)
[2019-05-12] MEDS: predniSONE 20 MG TAB PO SCH ×2 (09:42→20:56)
--- NOTE | 2019-05-12 16:00 | PDOC.HOSPP ---
- Subjective Subjective: Breathing well on low-flow nasal cannula. Blood pressure issues.Patient going for cardioversion. Patient with atrial fibrillation who also is suffering from COPD exacerbation with recent admission and discharge the hospital. On prior hospitalization she was recommended placement in [facility] facility, however she refused. Patient otherwise responding to maximal medical therapy. - Objective Vital Signs & Weight: Vital Signs (12 hours) Temp Pulse Pulse Pulse Resp BP BP 05/12/19 15:20 84 87 179/72 H 158/82 H 05/12/19 13:24 05/12/19 13:23 79 16 05/12/19 11:34 98.2 F 77 28 H 05/12/19 09:36 98 F 70 20 05/12/19 04:00 97.7 F 140 H 20 BP BP Pulse Ox Pulse Ox Pulse Ox Pulse Ox 05/12/19 15:20 91 L 82 L 90 L 05/12/19 13:24 94 L 05/12/19 13:23 05/12/19 11:34 180/77 H 97 05/12/19 09:36 191/85 H 94 L 05/12/19 04:00 169/79 H 98 Weight Admit Weight 101 lb 6.602 oz Weight 101 lb 6.602 oz I&O: 05/11/19 05/12/19 05/13/19 06:59 06:59 06:59 Intake Total 310 200 Output Total 300 150 Balance 10 200 -150 Result Diagrams: 05/11/19 08:06 05/11/19 08:06 Radiology Reviewed by me: Yes Hospitalist ROS - Review of Systems All other systems reviewed; all pertinent +/- noted in HPI/Subj - Medication Medications: Active Medications Generic Name Dose Route Start Last Admin Trade Name Freq PRN Reason Stop Dose Admin Acetaminophen 650 mg 05/09/19 09:18 05/09/19 20:17 Tylenol PO 650 mg Q4H PRN Administration Headache/Fever/Mild Pain (1-3) Albuterol/Ipratropium 3 ml 05/09/19 13:00 05/12/19 13:23 Duoneb NEB 3 ml [id number] JOLIE Administration Aspirin 81 mg 05/09/19 09:00 05/12/19 09:41 Ecotrin PO 81 mg DAILY JOLIE Administration Atorvastatin Calcium 10 mg 05/09/19 21:00 05/11/19 21:14 Lipitor PO 10 mg HS JOLIE Administration Bupropion HCl 150 mg 05/09/19 21:00 05/12/19 09:41 Wellbutrin Sr PO 150 mg BID JOLIE Administration Diltiazem HCl 240 mg 05/09/19 09:00 05/12/19 09:42 Cardizem Cd PO 240 mg DAILY JOLIE Administration Flecainide Acetate 100 mg 05/11/19 21:00 05/12/19 09:41 Tambocor PO 100 mg Q12HR JOLIE Administration Diltiazem HCl 125 mg/ Sodium 125 mls @ 5 mls/hr 05/10/19 18:00 05/11/19 20:25 Chloride IVPB 125 mls INF JOLIE Administration Protocol 5 MG/HR Mometasone Furoate/Formoterol Fumar 2 puff 05/09/19 18:30 05/12/19 08:05 Dulera 200 Mcg/5 Mcg Inhaler INH Not Given BID-RT JOLIE Prednisone 20 mg 05/09/19 21:00 05/12/19 09:42 Prednisone PO 20 mg BID JOLIE Administration Rivaroxaban 15 mg 05/09/19 17:00 05/11/19 16:41 Xarelto PO 15 mg 1700 JOLIE Administration - Exam General Appearance: NAD Eye: PERRL ENT: normocephalic atraumatic, moist mucosa Neck: supple, symmetric, no lymphadenopathy Heart: no murmur, no gallops, no rubs, irregular Respiratory: no rales, no ronchi, wheezes Gastrointestinal: soft, non-tender, no guarding, no rigidity Extremities: 1+ LE edema Skin: no rashes Neurological: cranial nerve grossly intact, no focal deficits Musculoskeletal: generalized weakness Hosp A/P (1) Acute on chronic respiratory failure with hypoxia Code(s): J96.21 - ACUTE AND CHRONIC RESPIRATORY FAILURE WITH HYPOXIA Status: Acute (2) COPD (chronic obstructive pulmonary disease) Status: Acute (3) COPD exacerbation Code(s): J44.1 - CHRONIC OBSTRUCTIVE PULMONARY DISEASE W (ACUTE) EXACERBATION Status: Acute (4) Diastolic CHF Code(s): I50.30 - UNSPECIFIED DIASTOLIC (CONGESTIVE) HEART FAILURE Status: Acute (5) Tobacco abuse Code(s): Z72.0 - TOBACCO USE Status: Acute (6) Atrial fibrillation Code(s): I48.91 - UNSPECIFIED ATRIAL FIBRILLATION Status: Chronic (7) Chronic kidney disease, stage 2 (mild) Code(s): N18.2 - CHRONIC KIDNEY DISEASE, STAGE 2 (MILD) Status: Chronic (8) HLD (hyperlipidemia) Code(s): E78.5 - HYPERLIPIDEMIA, UNSPECIFIED Status: Chronic (9) HTN (hypertension) Code(s): I10 - ESSENTIAL (PRIMARY) HYPERTENSION Status: Chronic (10) History of CVA (cerebrovascular accident) Code(s): Z86.73 - PRSNL HX OF TIA (TIA), AND CEREB INFRC W/O RESID DEFICITS Status: Chronic (11) Noncompliance with medication regimen Code(s): Z91.14 - PATIENT'S OTHER NONCOMPLIANCE WITH MEDICATION REGIMEN Status : Chronic (12) Panic attacks Code(s): F41.0 - PANIC DISORDER [EPISODIC PAROXYSMAL ANXIETY] Status: Chronic (13) Profound anemia Code(s): D64.9 - ANEMIA, UNSPECIFIED Status: Chronic (14) New onset of congestive heart failure Code(s): I50.9 - HEART FAILURE, UNSPECIFIED Status: Suspected (15) Hypokalemia Code(s): E87.6 - HYPOKALEMIA Status: Resolved (16) Multifocal atrial tachycardia Code(s): I47.1 - SUPRAVENTRICULAR TACHYCARDIA Status: Resolved - Plan Plan: Medical unit with telemetry cardiology consultation, recommendations appreciated pulmonology consultation, recommendations appreciated cardioversion if able oral anticoagulation with Xarelto cardiomyopathy regimen avoid volume overload with congestive heart failure patient with steroids per pulmonology, finished ABX Elevation in WBC count is stress demargination from steroids, rather than infectious process breathing treatments continue other home medications as able blood pressure control blood sugar control DVT prophylaxis G.I. prophylaxis Disposition: PT/OT have recommended SNF, patient unfortunately refused and came right back to the hospital. May require SNF placement to regain her strength and independence prior to going home.
[2019-05-12] MEDS: Rivaroxaban 15 MG TAB PO SCH (16:32)
[2019-05-12] MEDS: Atorvastatin Calcium 10 MG TAB PO SCH (20:56)
[2019-05-13] MEDS: Mometasone/Formoterol 120 PUFF INHALER INH SCH ×3 (07:31→20:39)
[2019-05-13] MEDS: Aspirin 81 mg Enteric Coated Tablet PO SCH (08:35)
[2019-05-13] MEDS: Lisinopril 5 MG TAB PO SCH ×2 (08:35→23:04)
[2019-05-13] MEDS: predniSONE 20 MG TAB PO SCH ×2 (08:35→23:05)
[2019-05-13] MEDS: Flecainide 50 MG TAB PO SCH ×2 (08:35→23:05)
--- NOTE | 2019-05-13 14:10 | PDOC.HOSPP ---
- Subjective Subjective: Patient continues to clinically improved. Status post cardioversion by cardiology, tolerated well and the procedure was successful. Patient believes that she is more tremulous secondary to Wellbutrin, this medication has been stopped and she is been placed on her normal home sertraline. Breathing well on low-flow nasal cannula at her baseline. All questions answered in detail. Recommended subacute placement, patient states that she is going to think about it. - Objective Vital Signs & Weight: Vital Signs (12 hours) Temp Pulse Resp BP BP Pulse Ox 05/13/19 13:48 77 16 05/13/19 11:29 97.9 F 77 32 H 144/63 H 96 05/13/19 07:31 78 16 05/13/19 07:22 75 16 100 05/13/19 07:20 97.6 F 75 20 144/77 H 99 05/13/19 04:00 97.9 F 79 20 172/76 H 94 L Weight Admit Weight 101 lb 6.602 oz Weight 96 lb 5 oz I&O: 05/12/19 05/13/19 05/14/19 06:59 06:59 06:59 Intake Total 200 1520 Output Total 450 Balance 200 1070 Result Diagrams: 05/11/19 08:06 05/11/19 08:06 Radiology Reviewed by me: Yes Hospitalist ROS - Review of Systems All other systems reviewed; all pertinent +/- noted in HPI/Subj - Medication Medications: Active Medications Generic Name Dose Route Start Last Admin Trade Name Freq PRN Reason Stop Dose Admin Acetaminophen 650 mg 05/09/19 09:18 05/09/19 20:17 Tylenol PO 650 mg Q4H PRN Administration Headache/Fever/Mild Pain (1-3) Albuterol/Ipratropium 3 ml 05/09/19 13:00 05/13/19 13:48 Duoneb NEB 3 ml [id number] JOLIE Administration Aspirin 81 mg 05/09/19 09:00 05/13/19 08:35 Ecotrin PO 81 mg DAILY JOLIE Administration Atorvastatin Calcium 10 mg 05/09/19 21:00 05/12/19 20:56 Lipitor PO 10 mg HS JOLIE Administration Diltiazem HCl 240 mg 05/09/19 09:00 05/13/19 08:35 Cardizem Cd PO 240 mg DAILY JOLIE Administration Flecainide Acetate 100 mg 05/11/19 21:00 05/13/19 08:35 Tambocor PO 100 mg Q12HR JOLIE Administration Lisinopril 5 mg 05/13/19 09:00 05/13/19 08:35 Zestril PO 5 mg BID JOLIE Administration Mometasone Furoate/Formoterol Fumar 2 puff 05/09/19 18:30 05/13/19 07:31 Dulera 200 Mcg/5 Mcg Inhaler INH 2 puff BID-RT JOLIE Administration Prednisone 20 mg 05/09/19 21:00 05/13/19 08:35 Prednisone PO 20 mg BID JOLIE Administration Rivaroxaban 15 mg 05/09/19 17:00 05/12/19 16:32 Xarelto PO 15 mg 1700 JOLIE Administration Sertraline HCl 150 mg 05/13/19 09:00 05/13/19 08:36 Zoloft PO 150 mg DAILY JOLIE Administration Sodium Chloride 10 ml 05/13/19 09:00 05/13/19 08:36 Flush - Normal Saline IVF 10 ml Q12HR JOLIE Administration - Exam General Appearance: NAD Eye: anicteric sclera ENT: normocephalic atraumatic, moist mucosa Neck: supple, symmetric Heart: no murmur, no gallops, no rubs Respiratory: CTAB, no wheezes, no rales, no ronchi, normal chest expansion Gastrointestinal: soft, non-tender, non-distended, no bruit, no guarding, no rigidity Extremities: no edema Skin: no rashes Neurological: cranial nerve grossly intact, no focal deficits Musculoskeletal: generalized weakness Psychiatric: A&O x 3 Hosp A/P (1) Acute on chronic respiratory failure with hypoxia Code(s): J96.21 - ACUTE AND CHRONIC RESPIRATORY FAILURE WITH HYPOXIA Status: Acute (2) COPD (chronic obstructive pulmonary disease) Status: Acute (3) COPD exacerbation Code(s): J44.1 - CHRONIC OBSTRUCTIVE PULMONARY DISEASE W (ACUTE) EXACERBATION Status: Acute (4) Diastolic CHF Code(s): I50.30 - UNSPECIFIED DIASTOLIC (CONGESTIVE) HEART FAILURE Status: Acute (5) Tobacco abuse Code(s): Z72.0 - TOBACCO USE Status: Acute (6) Atrial fibrillation Code(s): I48.91 - UNSPECIFIED ATRIAL FIBRILLATION Status: Chronic (7) Chronic kidney disease, stage 2 (mild) Code(s): N18.2 - CHRONIC KIDNEY DISEASE, STAGE 2 (MILD) Status: Chronic (8) HLD (hyperlipidemia) Code(s): E78.5 - HYPERLIPIDEMIA, UNSPECIFIED Status: Chronic (9) HTN (hypertension) Code(s): I10 - ESSENTIAL (PRIMARY) HYPERTENSION Status: Chronic (10) History of CVA (cerebrovascular accident) Code(s): Z86.73 - PRSNL HX OF TIA (TIA), AND CEREB INFRC W/O RESID DEFICITS Status: Chronic (11) Noncompliance with medication regimen Code(s): Z91.14 - PATIENT'S OTHER NONCOMPLIANCE WITH MEDICATION REGIMEN Status : Chronic (12) Panic attacks Code(s): F41.0 - PANIC DISORDER [EPISODIC PAROXYSMAL ANXIETY] Status: Chronic (13) Profound anemia Code(s): D64.9 - ANEMIA, UNSPECIFIED Status: Chronic (14) New onset of congestive heart failure Code(s): I50.9 - HEART FAILURE, UNSPECIFIED Status: Suspected (15) Hypokalemia Code(s): E87.6 - HYPOKALEMIA Status: Resolved (16) Multifocal atrial tachycardia Code(s): I47.1 - SUPRAVENTRICULAR TACHYCARDIA Status: Resolved - Plan Plan: Medical unit with telemetry cardiology consultation, recommendations appreciated pulmonology consultation, recommendations appreciated S/p cardioversion on 05/12 - tolerated well and was successful oral anticoagulation with Xarelto cardiomyopathy regimen avoid volume overload with congestive heart failure patient with steroids per pulmonology, finished ABX Elevation in WBC count is stress demargination from steroids, rather than infectious process breathing treatments continue other home medications as able blood pressure control blood sugar control DVT prophylaxis G.I. prophylaxis Disposition: PT/OT have recommended SNF, patient unfortunately refused and came right back to the hospital. May require SNF placement to regain her strength and independence prior to going home. I again recommended SNF placement for short period to regain her strength and independence.
[2019-05-13] MEDS: Rivaroxaban 15 MG TAB PO SCH (17:21)
[2019-05-13] MEDS ORDERED: Furosemide 40 MG/4 ML VIAL SLOW IVP SCH (19:00)
--- NOTE | 2019-05-13 19:07 | PRG ---
DATE OF SERVICE: 05/13/2019 SERVICE: Pulmonary Medicine. INTERVAL HISTORY: The patient is doing pretty well from respiratory standpoint. She is breathing comfortably. Her heart has been in a good rhythm. She indicates that her shortness of breath is a little bit better than it was previously. She notes having very excessive leg movements in the evening time. Sometimes she gets bilateral leg cramping. This is not A muscle cramp per se, but IT does affect her sleep. She has been dealing with this all of her life. She has never taken any medications for it. PHYSICAL EXAMINATION: VITAL SIGNS: Afebrile, pulse 79, blood pressure 141/62, respirations 19, and saturation 94% on 4 L nasal cannula. GENERAL: The patient is awake and alert, in no apparent distress. LUNGS: Very decreased air entry. There is a prolonged expiratory phase. Polyphonic wheezing and crackles both predominate. No rhonchi appreciated. HEART: Normal rate. Regular. ABDOMEN: Soft, nontender, and nondistended. Bowel sounds positive. MUSCULOSKELETAL: No cyanosis or clubbing. There is no pitting in the bilateral lower extremities. NEUROLOGIC: Grossly nonfocal. LABORATORY DATA: WBC 15.1, hemoglobin 9.9, and platelets 388,000. Creatinine 0.90. Basic metabolic profile is otherwise unremarkable. Influenza A and B are negative. ASSESSMENT: 1. Acute on chronic hypoxic respiratory failure, improving. 2. Chronic obstructive pulmonary disease with acute exacerbation. 3. Atrial fibrillation with RVR, status post synchronized cardioversion. 4. Restless legs syndrome. DISCUSSION AND PLAN: I will schedule dose of gabapentin for the patient this evening. If she likes it, she could be considered for discharge from the hospital with this drug. She has minimal crackles in her chest, superimposed on severe obstructive lung disease. As such, I will give her a morning dose of Lasix. I considered giving it to her now, but did not want to keep her. Pulmonary will continue to follow while the patient remains in-house. It is my understanding that she may be discharged to a intermediate facility or rehab to pursue physical therapy. I do believe that will be reasonable disposition. Job ID: [id number] MTDD
[2019-05-13] MEDS: Atorvastatin Calcium 10 MG TAB PO SCH (23:04)
[2019-05-14] MEDS: Mometasone/Formoterol 120 PUFF INHALER INH SCH ×2 (07:37→19:43)
[2019-05-14] MEDS: Flecainide 50 MG TAB PO SCH ×2 (09:32→20:11)
[2019-05-14] MEDS: Aspirin 81 mg Enteric Coated Tablet PO SCH (09:32)
[2019-05-14] MEDS: Lisinopril 5 MG TAB PO SCH ×2 (09:33→20:10)
[2019-05-14] MEDS: predniSONE 20 MG TAB PO SCH (09:33)
[2019-05-14] MEDS: Gabapentin 300 MG CAP PO SCH (09:34)
--- NOTE | 2019-05-14 11:10 | PDOC.HOSPP ---
- Subjective Subjective: Seen and examined. Patient states that she has been urinating frequently with Lasix. She states that she slept well. Patient now open to rehabilitation versus senior care facility in [place]. All questions answered in detail. Patient happy with plan of care. - Objective Vital Signs & Weight: Vital Signs (12 hours) Temp Pulse Resp BP Pulse Ox 05/14/19 09:27 98.1 F 71 19 125/58 L 96 05/14/19 07:37 86 16 05/14/19 07:35 99 05/14/19 07:34 86 16 05/14/19 05:25 98.2 F 67 18 137/63 99 05/14/19 00:39 77 16 98 Weight Admit Weight 101 lb 6.602 oz Weight 94 lb 3.2 oz I&O: 05/13/19 05/14/19 05/15/19 06:59 06:59 06:59 Intake Total 1520 1550 Output Total 450 Balance 1070 1550 Result Diagrams: 05/11/19 08:06 05/11/19 08:06 Radiology Reviewed by me: Yes Hospitalist ROS - Review of Systems All other systems reviewed; all pertinent +/- noted in HPI/Subj - Medication Medications: Active Medications Generic Name Dose Route Start Last Admin Trade Name Freq PRN Reason Stop Dose Admin Acetaminophen 650 mg 05/09/19 09:18 05/09/19 20:17 Tylenol PO 650 mg Q4H PRN Administration Headache/Fever/Mild Pain (1-3) Albuterol/Ipratropium 3 ml 05/09/19 13:00 05/14/19 07:34 Duoneb NEB 3 ml [id number] JOLIE Administration Aspirin 81 mg 05/09/19 09:00 05/14/19 09:32 Ecotrin PO 81 mg DAILY JOLIE Administration Atorvastatin Calcium 10 mg 05/09/19 21:00 05/13/19 23:04 Lipitor PO 10 mg HS JOLIE Administration Diltiazem HCl 240 mg 05/09/19 09:00 05/14/19 09:32 Cardizem Cd PO 240 mg DAILY JOLIE Administration Flecainide Acetate 100 mg 05/11/19 21:00 05/14/19 09:32 Tambocor PO 100 mg Q12HR JOLIE Administration Gabapentin 300 mg 05/14/19 09:00 12/08/19 09:34 Neurontin PO 300 mg DAILY JOLIE Administration Lisinopril 5 mg 05/13/19 09:00 05/14/19 09:33 Zestril PO 5 mg BID JOLIE Administration Mometasone Furoate/Formoterol Fumar 2 puff 05/09/19 18:30 05/14/19 07:37 Dulera 200 Mcg/5 Mcg Inhaler INH 2 puff BID-RT JOLIE Administration Prednisone 20 mg 05/09/19 21:00 05/14/19 09:33 Prednisone PO 20 mg BID JOLIE Administration Rivaroxaban 15 mg 05/09/19 17:00 05/13/19 17:21 Xarelto PO 15 mg 1700 JOLIE Administration Sertraline HCl 150 mg 05/13/19 09:00 05/14/19 09:33 Zoloft PO 150 mg DAILY JOLIE Administration Sodium Chloride 10 ml 05/13/19 09:00 05/14/19 09:34 Flush - Normal Saline IVF 10 ml Q12HR JOLIE Administration - Exam General Appearance: NAD Eye: anicteric sclera ENT: normocephalic atraumatic, moist mucosa Neck: supple, symmetric Heart: no murmur, no gallops, no rubs Respiratory: no rales, no ronchi, wheezes (left > right, faint) Gastrointestinal: soft, non-tender, no guarding, no rigidity Extremities: no edema Skin: no lesions, no rashes Neurological: cranial nerve grossly intact, no focal deficits Musculoskeletal: generalized weakness, diffuse muscle atrophy Psychiatric: normal affect, normal behavior, A&O x 3 Hosp A/P (1) Acute on chronic respiratory failure with hypoxia Code(s): J96.21 - ACUTE AND CHRONIC RESPIRATORY FAILURE WITH HYPOXIA Status: Acute (2) COPD (chronic obstructive pulmonary disease) Status: Acute (3) COPD exacerbation Code(s): J44.1 - CHRONIC OBSTRUCTIVE PULMONARY DISEASE W (ACUTE) EXACERBATION Status: Acute (4) Diastolic CHF Code(s): I50.30 - UNSPECIFIED DIASTOLIC (CONGESTIVE) HEART FAILURE Status: Acute (5) Tobacco abuse Code(s): Z72.0 - TOBACCO USE Status: Acute (6) Atrial fibrillation Code(s): I48.91 - UNSPECIFIED ATRIAL FIBRILLATION Status: Chronic (7) Chronic kidney disease, stage 2 (mild) Code(s): N18.2 - CHRONIC KIDNEY DISEASE, STAGE 2 (MILD) Status: Chronic (8) HLD (hyperlipidemia) Code(s): E78.5 - HYPERLIPIDEMIA, UNSPECIFIED Status: Chronic (9) HTN (hypertension) Code(s): I10 - ESSENTIAL (PRIMARY) HYPERTENSION Status: Chronic (10) History of CVA (cerebrovascular accident) Code(s): Z86.73 - PRSNL HX OF TIA (TIA), AND CEREB INFRC W/O RESID DEFICITS Status: Chronic (11) Noncompliance with medication regimen Code(s): Z91.14 - PATIENT'S OTHER NONCOMPLIANCE WITH MEDICATION REGIMEN Status : Chronic (12) Panic attacks Code(s): F41.0 - PANIC DISORDER [EPISODIC PAROXYSMAL ANXIETY] Status: Chronic (13) Profound anemia Code(s): D64.9 - ANEMIA, UNSPECIFIED Status: Chronic (14) New onset of congestive heart failure Code(s): I50.9 - HEART FAILURE, UNSPECIFIED Status: Suspected (15) Hypokalemia Code(s): E87.6 - HYPOKALEMIA Status: Resolved (16) Multifocal atrial tachycardia Code(s): I47.1 - SUPRAVENTRICULAR TACHYCARDIA Status: Resolved - Plan Plan: Medical unit with telemetry cardiology consultation, recommendations appreciated pulmonology consultation, recommendations appreciated S/p cardioversion on 05/12 - tolerated well and was successful oral anticoagulation with Xarelto cardiomyopathy regimen avoid volume overload with congestive heart failure, Lasix patient with steroids per pulmonology, finished ABX Elevation in WBC count is stress demargination from steroids, rather than infectious process breathing treatments continue other home medications as able blood pressure control blood sugar control DVT prophylaxis G.I. prophylaxis Disposition: PT/OT have recommended SNF, patient unfortunately refused and came right back to the hospital. May require SNF placement to regain her strength and independence prior to going home. I again recommended SNF placement for short period to regain her strength and independence. Patient now open to placement in [place].
[2019-05-14] MEDS: Rivaroxaban 15 MG TAB PO SCH (17:14)
--- NOTE | 2019-05-14 18:44 | PRG ---
DATE OF SERVICE: 05/14/2019 SERVICE: Pulmonary Medicine. INTERVAL HISTORY: The patient is doing really well from respiratory standpoint. Breathing comfortably. No complaints of chest discomfort. Her shortness of breath is back to baseline. She seems to think the gabapentin helped a little bit with her leg symptoms. She got a very good night of sleep last night. This is uncharacteristic for her. Her cough is at baseline, she does not bring up any phlegm. PHYSICAL EXAMINATION: VITAL SIGNS: Afebrile, pulse 70, blood pressure 142/53, respirations 20, and saturation 100% on 3 L nasal cannula. GENERAL: The patient is awake and alert, in no apparent distress. LUNGS: Decreased air entry with a prolonged expiratory phase. No wheezing or crackles are appreciated. HEART: Normal rate. Regular. ABDOMEN: Soft, nontender, and nondistended. Bowel sounds are positive. MUSCULOSKELETAL: No cyanosis or clubbing. There is no pitting in the bilateral lower extremities. NEUROLOGIC: Grossly nonfocal. ASSESSMENT: 1. Acute on chronic hypoxic respiratory failure, back to baseline. 2. Chronic obstructive pulmonary disease with acute exacerbation, improved. 3. Atrial fibrillation with rapid ventricular response, status post synchronized cardioversion, returned to sinus rhythm. 4. Restless legs syndrome. DISCUSSION AND PLAN: The patient is doing fine from respiratory standpoint. She is stable for discharge from the hospital. She has completed a 5-day course of steroids and these can be interrupted. We are awaiting placement in the outpatient setting. Job ID: [id number]
[2019-05-14] MEDS: Atorvastatin Calcium 10 MG TAB PO SCH (20:10)
[2019-05-15] MEDS: Mometasone/Formoterol 120 PUFF INHALER INH SCH ×2 (07:09→19:38)
[2019-05-15] MEDS: Aspirin 81 mg Enteric Coated Tablet PO SCH (08:43)
[2019-05-15] MEDS: Flecainide 50 MG TAB PO SCH ×2 (08:43→21:02)
[2019-05-15] MEDS: Lisinopril 5 MG TAB PO SCH ×2 (08:43→21:02)
[2019-05-15] MEDS: Gabapentin 300 MG CAP PO SCH (08:44)
--- NOTE | 2019-05-15 09:54 | PRG ---
DATE OF SERVICE: SUBJECTIVE: This morning, she is better, less short of breath. OBJECTIVE: VITAL SIGNS: Saturations are 97 on 3 L, respiratory rate 20, blood pressure is 105/52, temperature 98, pulse 67. GENERAL: She denies any pain or discomfort. CHEST: No wheezing or crackles. CARDIAC: Normal S1, S2. No gallops. ABDOMEN: No masses. ASSESSMENT: Chronic obstructive pulmonary disease, supraventricular tachycardia, decondition. PLAN: Continue neb treatment, PT, supportive care. We will follow. Job ID: [id number]
--- NOTE | 2019-05-15 14:18 | PDOC.HOSPP ---
- Subjective Encounter Date: 05/15/19 Encounter Time: 14:16 Subjective: Doing well. Complains of tremors. Intermittent. No thrilled with her diet. Confirms she does want to go to SNF in [place]. - Objective Vital Signs & Weight: Vital Signs (12 hours) Temp Pulse Pulse Resp BP BP BP 05/15/19 13:51 71 16 05/15/19 11:46 98.0 F 70 20 05/15/19 09:53 75 119/55 L 127/55 L 05/15/19 08:43 67 105/52 L 05/15/19 08:39 98 F 67 20 05/15/19 07:09 65 16 05/15/19 07:04 05/15/19 07:03 65 16 05/15/19 04:00 98.0 F 69 16 BP Pulse Ox Pulse Ox Pulse Ox Pulse Ox 05/15/19 13:51 05/15/19 11:46 111/51 L 95 05/15/19 09:53 92 L 88 L 93 L 05/15/19 08:43 05/15/19 08:39 105/52 L 97 05/15/19 07:09 05/15/19 07:04 95 05/15/19 07:03 05/15/19 04:00 130/61 95 Weight Admit Weight 101 lb 6.602 oz Weight 97 lb 9.6 oz I&O: 05/14/19 05/15/19 05/16/19 06:59 06:59 06:59 Intake Total 1550 1020 Balance 1550 1020 Result Diagrams: 05/11/19 08:06 05/11/19 08:06 Hospitalist ROS - Medication Medications: Active Medications Generic Name Dose Route Start Last Admin Trade Name Freq PRN Reason Stop Dose Admin Acetaminophen 650 mg 05/09/19 09:18 05/09/19 20:17 Tylenol PO 650 mg Q4H PRN Administration Headache/Fever/Mild Pain (1-3) Albuterol/Ipratropium 3 ml 05/09/19 13:00 05/15/19 13:51 Duoneb NEB 3 ml [id number] JOLIE Administration Aspirin 81 mg 05/09/19 09:00 05/15/19 08:43 Ecotrin PO 81 mg DAILY JOLIE Administration Atorvastatin Calcium 10 mg 05/09/19 21:00 05/14/19 20:10 Lipitor PO 10 mg HS JOLIE Administration Diltiazem HCl 240 mg 05/09/19 09:00 05/15/19 08:43 Cardizem Cd PO 240 mg DAILY JOLIE Administration Flecainide Acetate 100 mg 05/11/19 21:00 05/15/19 08:43 Tambocor PO 100 mg Q12HR JOLIE Administration Gabapentin 300 mg 05/14/19 09:00 05/15/19 08:44 Neurontin PO 300 mg DAILY JOLIE Administration Lisinopril 5 mg 05/13/19 09:00 05/15/19 08:43 Zestril PO Not Given BID JOLIE Mometasone Furoate/Formoterol Fumar 2 puff 05/09/19 18:30 05/15/19 07:09 Dulera 200 Mcg/5 Mcg Inhaler INH 2 puff BID-RT JOLIE Administration Rivaroxaban 15 mg 05/09/19 17:00 05/14/19 17:14 Xarelto PO 15 mg 1700 JOLIE Administration Sertraline HCl 150 mg 05/13/19 09:00 05/15/19 08:42 Zoloft PO 150 mg DAILY JOLIE Administration Sodium Chloride 10 ml 05/13/19 09:00 05/15/19 08:44 Flush - Normal Saline IVF 10 ml Q12HR JOLIE Administration - Exam General Appearance: NAD, awake alert Heart: RRR, no murmur, no gallops, no rubs, normal peripheral pulses Respiratory: CTAB, no wheezes, no rales, no ronchi Respiratory - other findings: Very diminished. Gastrointestinal: soft, non-tender, non-distended, normal bowel sounds, no palpable masses, no hepatomegaly, no splenomegaly, no bruit Extremities: no cyanosis, no clubbing, no edema Skin: normal turgor Musculoskeletal: normal tone, normal strength, no muscle wasting, generalized weakness Psychiatric: normal affect, normal behavior, A&O x 3 Hosp A/P (1) Acute on chronic respiratory failure with hypoxia Code(s): J96.21 - ACUTE AND CHRONIC RESPIRATORY FAILURE WITH HYPOXIA Status: Acute (2) COPD exacerbation Code(s): J44.1 - CHRONIC OBSTRUCTIVE PULMONARY DISEASE W (ACUTE) EXACERBATION Status: Acute (3) Diastolic CHF Code(s): I50.30 - UNSPECIFIED DIASTOLIC (CONGESTIVE) HEART FAILURE Status: Acute (4) Tobacco abuse Code(s): Z72.0 - TOBACCO USE Status: Acute (5) Atrial fibrillation Code(s): I48.91 - UNSPECIFIED ATRIAL FIBRILLATION Status: Chronic (6) Chronic kidney disease, stage 2 (mild) Code(s): N18.2 - CHRONIC KIDNEY DISEASE, STAGE 2 (MILD) Status: Chronic (7) HLD (hyperlipidemia) Code(s): E78.5 - HYPERLIPIDEMIA, UNSPECIFIED Status: Chronic (8) HTN (hypertension) Code(s): I10 - ESSENTIAL (PRIMARY) HYPERTENSION Status: Chronic (9) History of CVA (cerebrovascular accident) Code(s): Z86.73 - PRSNL HX OF TIA (TIA), AND CEREB INFRC W/O RESID DEFICITS Status: Chronic - Plan Consult CM for SNF. Change to regular diet per patient request. Tremors likely SE of steroids and nebs. Change nebs to PRN only. Steroids have been stopped. COPD at baseline. Stable for DC when SNF bed available if she qualifies. Remains in [facility].
[2019-05-15] MEDS: Rivaroxaban 15 MG TAB PO SCH (16:35)
[2019-05-15] MEDS: Atorvastatin Calcium 10 MG TAB PO SCH (21:01)
[2019-05-16] MEDS: Mometasone/Formoterol 120 PUFF INHALER INH SCH ×2 (07:08→18:53)
[2019-05-16] MEDS: Aspirin 81 mg Enteric Coated Tablet PO SCH (08:49)
[2019-05-16] MEDS: Lisinopril 5 MG TAB PO SCH ×3 (08:50→23:35)
[2019-05-16] MEDS: Flecainide 50 MG TAB PO SCH (08:50)
[2019-05-16] MEDS: Gabapentin 300 MG CAP PO SCH (08:50)
--- NOTE | 2019-05-16 09:25 | PRG ---
DATE OF SERVICE: 05/16/2019 SUBJECTIVE: This morning, she is better, she is less short of breath. She tells me that breathing treatments to make a shaky, nervous, causes a headache. She wants a p.r.n. schedule. OBJECTIVE: VITAL SIGNS: Temperature 98, pulse 78, respiratory rate 18, sats 97% on 3 L, and blood pressure 134/63. CHEST: Clear. CARDIAC: Normal S1-S2. No gallops. ABDOMEN: No masses. ASSESSMENT: 1. Chronic obstructive pulmonary disease. 2. Supraventricular tachycardia. PLAN: P.r.n. neb treatment. Disposition, placement any time. Job ID: [id number]
[2019-05-16] MEDS ORDERED: Digoxin 0.5 MG/2 ML AMP SLOW IVP SCH (11:45)
[2019-05-16] MEDS ORDERED: Sodium Chloride 0.9% 500 ML IV SCH (11:45)
--- NOTE | 2019-05-16 12:40 | PRG ---
DATE OF SERVICE: 05/15/2019 TIME OF VISIT: 1630. SUBJECTIVE: Ms. Beasley is sitting up comfortably on the side of the bed. Over the weekend, she has remained in normal sinus rhythm. She complains of a tremor that she thinks has been worse in the last week. She denies any new or progressive shortness of breath. She denies any chest pain or palpitations. PHYSICAL EXAMINATION: GENERAL: This is a pleasant elderly female, very frail, in no acute distress. VITAL SIGNS: Stable. HEENT: Head is atraumatic and normocephalic. Mucous membranes are moist. NECK: Supple. CHEST: Clear with decreased breath sounds bilaterally. CARDIOVASCULAR: Regular rate and rhythm with normal S1 and S2 and 2/6 systolic murmur at left sternal border. ABDOMEN: Soft and nontender to palpation, nondistended. EXTREMITIES: No cyanosis or edema. She has bilateral clubbing. SKIN: Warm and dry. Psychiatric: Mood and affect appropriate. MUSCULOSKELETAL: Not fully assessed. Telemetry shows the patient to be in sinus rhythm. LABORATORY DATA: Reviewed and stable. IMPRESSION: 1. Paroxysmal atrial fibrillation with rapid ventricular response, status post recent cardioversion. 2. Chronic obstructive pulmonary disease. 3. Hypertension. 4. Hyperlipidemia. 5. Diastolic dysfunction. The patient is stable overall and doing well from a rhythm standpoint. She is compliant with the Xarelto and has no acute bleeding issues. She has remained in normal sinus rhythm on the flecainide. She does report a new tremor. It is possible this is related to the flecainide. At this time, I would continue to monitor it and if it does worsen, we can consider other antiarrhythmic medication. If she remains in normal sinus rhythm and her lung status improves, hopefully discharge can be planned in the near future. I have no changes today. Job ID: [id number]
--- NOTE | 2019-05-16 16:50 | PDOC.HOSPP ---
- Subjective Subjective: Patient seen this morning. She was doing well and only reported a little sleepiness. - Objective Vital Signs & Weight: Vital Signs (12 hours) Temp Pulse Resp BP BP BP BP 05/16/19 12:30 100/59 L 05/16/19 12:09 101 H 95/51 L 05/16/19 11:49 103 H 91/51 L 05/16/19 11:40 124 H 05/16/19 11:39 103 H 83/51 L 05/16/19 11:32 80/46 L 05/16/19 11:26 116 H 94/53 L 05/16/19 11:19 99.2 F 127 H 18 90/53 L 05/16/19 08:50 64 134/63 05/16/19 08:49 71 05/16/19 08:12 97.8 F 78 18 120/58 L 05/16/19 07:08 89 20 Pulse Ox 05/16/19 12:30 05/16/19 12:09 05/16/19 11:49 05/16/19 11:40 05/16/19 11:39 05/16/19 11:32 05/16/19 11:26 05/16/19 11:19 94 L 05/16/19 08:50 05/16/19 08:49 05/16/19 08:12 95 05/16/19 07:08 88 L Weight Admit Weight 101 lb 6.602 oz Weight 97 lb 3.2 oz I&O: 05/15/19 05/16/19 05/17/19 06:59 06:59 06:59 Intake Total 1020 300 Output Total 900 Balance 1020 -600 Result Diagrams: 05/11/19 08:06 05/11/19 08:06 Hospitalist ROS - Medication Medications: Active Medications Generic Name Dose Route Start Last Admin Trade Name Freq PRN Reason Stop Dose Admin Acetaminophen 650 mg 05/09/19 09:18 05/09/19 20:17 Tylenol PO 650 mg Q4H PRN Administration Headache/Fever/Mild Pain (1-3) Aspirin 81 mg 05/09/19 09:00 05/16/19 08:49 Ecotrin PO 81 mg DAILY JOLIE Administration Atorvastatin Calcium 10 mg 05/09/19 21:00 05/15/19 21:01 Lipitor PO 10 mg HS JOLIE Administration Diltiazem HCl 240 mg 12/03/19 09:00 05/16/19 08:49 Cardizem Cd PO 240 mg DAILY JOLIE Administration Flecainide Acetate 100 mg 05/11/19 21:00 05/16/19 08:50 Tambocor PO 100 mg Q12HR JOLIE Administration Gabapentin 300 mg 05/14/19 09:00 05/16/19 08:50 Neurontin PO 300 mg DAILY JOLIE Administration Lisinopril 5 mg 05/13/19 09:00 05/16/19 08:50 Zestril PO 5 mg BID JOLIE Administration Rivaroxaban 15 mg 05/09/19 17:00 05/15/19 16:35 Xarelto PO 15 mg 1700 JOLIE Administration Sertraline HCl 150 mg 05/13/19 09:00 05/16/19 08:53 Zoloft PO 150 mg DAILY JOLIE Administration Sodium Chloride 10 ml 05/13/19 09:00 05/16/19 08:54 Flush - Normal Saline IVF 10 ml Q12HR JOLIE Administration - Exam General Appearance: NAD, awake alert Neck: supple, symmetric, no JVD, no thyromegaly, no lymphadenopathy, no carotid bruit Heart: RRR, no murmur, no gallops, no rubs, normal peripheral pulses Respiratory: CTAB, no wheezes, no rales, no ronchi, normal chest expansion, no tachypnea, normal percussion Respiratory - other findings: Diminished Gastrointestinal: soft, non-tender, non-distended, normal bowel sounds, no palpable masses, no hepatomegaly, no splenomegaly, no bruit Extremities: no cyanosis, no clubbing, no edema Skin: normal turgor Musculoskeletal: normal tone Hosp A/P (1) Acute on chronic respiratory failure with hypoxia Code(s): J96.21 - ACUTE AND CHRONIC RESPIRATORY FAILURE WITH HYPOXIA Status: Acute (2) COPD exacerbation Code(s): J44.1 - CHRONIC OBSTRUCTIVE PULMONARY DISEASE W (ACUTE) EXACERBATION Status: Acute (3) Diastolic CHF Code(s): I50.30 - UNSPECIFIED DIASTOLIC (CONGESTIVE) HEART FAILURE Status: Acute (4) Tobacco abuse Code(s): Z72.0 - TOBACCO USE Status: Acute (5) Atrial fibrillation Code(s): I48.91 - UNSPECIFIED ATRIAL FIBRILLATION Status: Chronic (6) Chronic kidney disease, stage 2 (mild) Code(s): N18.2 - CHRONIC KIDNEY DISEASE, STAGE 2 (MILD) Status: Chronic (7) HLD (hyperlipidemia) Code(s): E78.5 - HYPERLIPIDEMIA, UNSPECIFIED Status: Chronic (8) HTN (hypertension) Code(s): I10 - ESSENTIAL (PRIMARY) HYPERTENSION Status: Chronic (9) History of CVA (cerebrovascular accident) Code(s): Z86.73 - PRSNL HX OF TIA (TIA), AND CEREB INFRC W/O RESID DEFICITS Status: Chronic - Plan COPD at baseline. Was accepted to [facility] and plan was to DC. Converted back to Afib with RVR subsequent. Discharge canceled. BP was relatively low and she was a little lightheaded. She had a NS bolus of 500 cc and BP improved. Dr[address] Ya consulted as she has failed ablation x 2 and flecanide therapy.
[2019-05-16] MEDS: Rivaroxaban 15 MG TAB PO SCH (17:22)
[2019-05-16] MEDS: Atorvastatin Calcium 10 MG TAB PO SCH (21:22)
[2019-05-17] MEDS: Mometasone/Formoterol 120 PUFF INHALER INH SCH ×2 (07:46→18:50)
[2019-05-17] MEDS: Dronedarone HCl 400 MG TAB PO SCH ×2 (08:50→16:55)
[2019-05-17] MEDS: Lisinopril 5 MG TAB PO SCH (08:50)
[2019-05-17] MEDS: Gabapentin 300 MG CAP PO SCH (08:50)
[2019-05-17] MEDS: Aspirin 81 mg Enteric Coated Tablet PO SCH (08:50)
--- NOTE | 2019-05-17 09:27 | PRG ---
DATE OF SERVICE: 05/17/2019 SUBJECTIVE: This morning, she is better. OBJECTIVE: VITAL SIGNS: Temperature 98, pulse 117, respirations 18, sats 96% on 3 L, and blood pressure 117/59. CHEST: Decreased breath sounds. No wheezing. CARDIAC: Normal S1-S2. No gallops. ABDOMEN: No masses. ASSESSMENT: 1. Chronic obstructive pulmonary disease. 2. Recurrent supraventricular tachycardia. PLAN: Pulmonary valle, she is stable enough to be discharged home any time. Pulmonary will follow at a distance. Job ID: [id number]
[2019-05-17 14:09] VITALS: BMI 17.4
--- NOTE | 2019-05-17 14:23 | PRG ---
DATE OF SERVICE: 05/17/2019 SUBJECTIVE: Ms. Beasley is doing well. Her rate appears controlled. Blood pressure is marginal. She is currently on lisinopril in addition to Cardizem for rate control. OBJECTIVE: GENERAL: Patient is a pleasant woman who is in no acute distress. She does appear older than stated age. VITAL SIGNS: Blood pressure 97/54, pulse 77, temperature 98. NEUROLOGIC: The patient is alert and oriented x3 with no focal neurologic deficits. HEENT: Sclerae without icterus. Mouth has moist mucous membranes with normal pallor. NECK: No JVD. Carotid upstroke brisk. No bruits bilaterally. LUNGS: Clear to auscultation with unlabored respirations. BACK: No scoliosis or kyphosis. CARDIAC: Irregularly irregular. ABDOMEN: Soft, nontender, nondistended. No peritoneal signs present. No hepatosplenomegaly. No abnormal striae. EXTREMITIES: 2+ femoral and 2+ dorsalis pedis pulses. No cyanosis, clubbing, or edema. SKIN: No gross abnormalities. IMPRESSION: 1. Recurrent atrial fibrillation. 2. Chronic obstructive pulmonary disease. RECOMMENDATIONS: Appreciate Dr. Ya's consulting. He recommends rate control for now. If she fails rate control, she would likely need AV radha ablation followed by pacemaker implantation. Multaq may not be any better than flecainide and is not a good candidate for amiodarone. At this point, we will discontinue lisinopril given marginal blood pressure. Continue with diltiazem and discontinue flecainide. Otherwise, I have no further recommendations. I will be out of the office for the next 5 days. If continues to have issues, please otherwise will follow up with Ms. Thakkar as an outpatient. Job ID: [id number]
--- NOTE | 2019-05-17 14:25 | PDOC.CPN ---
- Subjective Date: 05/17/19 Time: 14:24 Interval history: EP PROGRESS NOTE: 05/17/19 Follow up for atrial fibrillation and medication management. patient reports poor sleep and feels fatigued, otherwise without complaint - Review of Systems General: reports: fatigue Respiratory: denies: cough, congestion, shortness of breath, exercise intolerance Cardiovascular: denies: chest pain, palpitation, edema, paroxysmal nocturnal dyspnea, orthopnea Gastrointestinal: denies: nausea, vomiting, diarrhea, constipation, abd pain, GI bleeding Musculoskeletal: denies: pain, tenderness, stiffness, swelling, arthritis/ arthralgias - Objective Allergies/Adverse Reactions: Allergies Allergy/AdvReac Type Severity Reaction Status Date / Time No Known Drug Allergies Allergy Verified 05/08/19 23:48 Visit Medications: Current Medications Acetaminophen (Tylenol) 650 mg PO Q4H PRN PRN Reason: Headache/Fever/Mild Pain (1-3) Last Admin: 05/09/19 20:17 Dose: 650 mg Albuterol/Ipratropium (Duoneb) 3 ml NEB [id number] PRN PRN Reason: Chest Congestion/Secretions Aspirin (Ecotrin) 81 mg PO DAILY [facility] Last Admin: 05/17/19 08:50 Dose: 81 mg Atorvastatin Calcium (Lipitor) 10 mg PO HS [facility] Last Admin: 05/16/19 21:22 Dose: 10 mg Digoxin (Lanoxin) 0.125 mg PO DAILY [facility] Diltiazem HCl (Cardizem Cd) 240 mg PO DAILY [facility] Last Admin: 05/17/19 08:50 Dose: 240 mg Dronedarone (Multaq) 400 mg PO BID-[facility] Last Admin: 05/17/19 08:50 Dose: 400 mg Gabapentin (Neurontin) 300 mg PO DAILY [facility] Last Admin: 05/17/19 08:50 Dose: 300 mg Hydralazine HCl (Apresoline) 10 mg SLOW IVP Q4H PRN PRN Reason: SBP > 180 and HR < 70 Mometasone Furoate/Formoterol Fumar (Dulera 200 Mcg/5 Mcg Inhaler) 1 puff INH BID-RT [facility] Last Admin: 05/17/19 07:46 Dose: Not Given Rivaroxaban (Xarelto) 15 mg PO 1700 [facility] Last Admin: 05/16/19 17:22 Dose: 15 mg Sertraline HCl (Zoloft) 150 mg PO DAILY [facility] Last Admin: 05/17/19 08:51 Dose: 150 mg Sodium Chloride (Flush - Normal Saline) 10 ml IVF Q12HR [facility] Last Admin: 05/17/19 08:56 Dose: 10 ml Sodium Chloride (Flush - Normal Saline) 10 ml IVF PRN PRN PRN Reason: Saline Flush Vital Signs & Weight: Vital Signs Temp Pulse Resp BP BP Pulse Ox 05/17/19 12:20 98.0 F 77 16 97/54 L 96 05/17/19 11:41 98.0 F 91 18 103/56 L 94 L 05/17/19 08:45 98.1 F 117 H 18 117/59 L 96 05/17/19 04:00 97.7 F 88 22 H 149/69 H 94 L Admit Weight 101 lb 6.602 oz Weight 98 lb 5 oz - Physical Exam General: alert & oriented x3, appears well, no apparent distress HEENT: mucus membranes moist, normocephaly Neck: supple neck, midline trachea, no JVD/HJR, no masses, no bruit, no lymphadenopathy, no thromegaly Cardiac: no murmur, irregularly regular, tachycardia Lungs: no rales, no rhonchi, wheezes Neuro: cranial nerve 2-12 intact, grossly intact, motor function intact, sensory function intact, negative rhomberg, coordination normal, no lateralizing findings Abdomen: unremarkable, active bowel sounds, soft, non-tender, no masses, no pulsations/bruits, no hepatosplenomegaly - Labs Result Diagrams: 05/11/19 08:06 05/11/19 08:06 - Telemetry Supraventricular conduction: atrial fibrillation - Assessment/Plan Assessment/Plan: 1. Atrial fibrillation - refractory to Flecainide 100mg with CV - Started multaq 400mg BID on 05/16. on Dilt 240mg QD. added low dose digoxin 125mcg QD. 2. COPD 3. Preserved EF 4. CHADS2-VASC: 6 - Continue xarelto Possible CV wednesday. If rhythms refractory to multaq, Rate control is recommended. Given her hypotension issues she may be difficult to rate control medically and may require AVJ with PPM implant. Poor ablation candidate with her frail status and advanced COPD.
[2019-05-17] MEDS ORDERED: Digoxin 0.125 MG TAB PO SCH (14:30)
[2019-05-17] MEDS: Rivaroxaban 15 MG TAB PO SCH (16:55)
--- NOTE | 2019-05-17 18:14 | PDOC.HOSPP ---
- Subjective Encounter Date: 05/17/19 Encounter Time: 18:10 Subjective: f/u for recurrent A-fib RVR on Multaq/Digoxin/Diltiazem/Xarelto. May need PPM. Feels better overall. Ambulated 400' with PT. - Objective Vital Signs & Weight: Vital Signs (12 hours) Temp Pulse Resp BP BP BP Pulse Ox 05/17/19 15:42 96 05/17/19 15:37 98.2 F 96 17 98/57 L 94 L 05/17/19 12:20 98.0 F 77 16 97/54 L 96 05/17/19 11:41 98.0 F 91 18 103/56 L 94 L 05/17/19 08:45 98.1 F 117 H 18 117/59 L 96 Weight Admit Weight 101 lb 6.602 oz Weight 98 lb 5 oz I&O: 05/16/19 05/17/19 05/18/19 06:59 06:59 06:59 Intake Total 300 1750 Output Total 900 1200 Balance -600 550 Result Diagrams: 05/11/19 08:06 05/11/19 08:06 EKG Reviewed by me: Yes (Tele - A-flutter in 70's) Hospitalist ROS - Medication Medications: Active Medications Generic Name Dose Route Start Last Admin Trade Name Freq PRN Reason Stop Dose Admin Acetaminophen 650 mg 05/09/19 09:18 05/09/19 20:17 Tylenol PO 650 mg Q4H PRN Administration Headache/Fever/Mild Pain (1-3) Aspirin 81 mg 05/09/19 09:00 05/17/19 08:50 Ecotrin PO 81 mg DAILY JOLIE Administration Atorvastatin Calcium 10 mg 05/09/19 21:00 05/16/19 21:22 Lipitor PO 10 mg HS JOLIE Administration Diltiazem HCl 240 mg 05/09/19 09:00 05/17/19 08:50 Cardizem Cd PO 240 mg DAILY JOLIE Administration Dronedarone 400 mg 05/17/19 08:00 05/17/19 16:55 Multaq PO 400 mg BID-[facility] JOLIE Administration Gabapentin 300 mg 05/14/19 09:00 05/17/19 08:50 Neurontin PO 300 mg DAILY JOLIE Administration Mometasone Furoate/Formoterol Fumar 1 puff 05/16/19 09:08 05/17/19 07:46 Dulera 200 Mcg/5 Mcg Inhaler INH Not Given BID-RT JOLIE Rivaroxaban 15 mg 05/09/19 17:00 05/17/19 16:55 Xarelto PO 15 mg 1700 JOLIE Administration Sertraline HCl 150 mg 05/13/19 09:00 05/17/19 08:51 Zoloft PO 150 mg DAILY JOLIE Administration Sodium Chloride 10 ml 05/13/19 09:00 05/17/19 08:56 Flush - Normal Saline IVF 10 ml Q12HR JOLIE Administration - Exam General Appearance: NAD, awake alert Eye: PERRL, anicteric sclera ENT: normocephalic atraumatic, no oropharyngeal lesions Neck: supple, symmetric, no JVD, no thyromegaly Heart: no gallops, no rubs, normal peripheral pulses, irregular Respiratory - other findings: diminished in bases, few exp wheezes Gastrointestinal: soft, non-tender, non-distended, normal bowel sounds, no palpable masses Extremities: no cyanosis, no clubbing, no edema Skin: normal turgor, no lesions Neurological: cranial nerve grossly intact, no new deficit Musculoskeletal: normal tone, generalized weakness Psychiatric: normal affect, A&O x 3 Hosp A/P (1) Acute on chronic respiratory failure with hypoxia Code(s): J96.21 - ACUTE AND CHRONIC RESPIRATORY FAILURE WITH HYPOXIA Status: Acute Plan: Continue O2 supplementation, baseline O2 requirement (2) COPD exacerbation Code(s): J44.1 - CHRONIC OBSTRUCTIVE PULMONARY DISEASE W (ACUTE) EXACERBATION Status: Acute Plan: Continue Duonebs, Dulera, O2 (3) Atrial fibrillation Code(s): I48.91 - UNSPECIFIED ATRIAL FIBRILLATION Status: Chronic Plan: A-fib/flutter, continue Multaq/Digoxin/Diltiazem/Xarelto (4) Tobacco abuse Code(s): Z72.0 - TOBACCO USE Status: Chronic Plan: Smoking cessation resources (5) Chronic kidney disease, stage 2 (mild) Code(s): N18.2 - CHRONIC KIDNEY DISEASE, STAGE 2 (MILD) Status: Chronic Plan: Avoid nephrotoxic meds and limit contrast exposure - Plan PT/OT, social work assistant, respiratory therapy, out of bed/ambulate, DVT proph w/ SCDs Stable currently Plan for CV on 12/13/19 Continue Digoxin/Multaq/Diltiazem OOB with PT SNF/swing bed for d/c in [place]
[2019-05-17] MEDS: Atorvastatin Calcium 10 MG TAB PO SCH (20:00)
--- NOTE | 2019-05-18 07:27 | PDOC.CPN ---
- Subjective Date: 05/18/19 Time: 08:00 Interval history: EP PROGRESS NOTE: 05/18/19 Follow up for atrial fibrillation and medication management. patient reports poor sleep and feels fatigued, otherwise without complaint - Review of Systems General: reports: fatigue. denies: fever/chills, weight/appetite/sleep changes , night sweats Respiratory: denies: cough, congestion, shortness of breath, exercise intolerance Cardiovascular: denies: chest pain, palpitation, edema, paroxysmal nocturnal dyspnea, orthopnea Gastrointestinal: denies: nausea, vomiting, diarrhea, constipation, abd pain, GI bleeding - Objective Allergies/Adverse Reactions: Allergies Allergy/AdvReac Type Severity Reaction Status Date / Time No Known Drug Allergies Allergy Verified 05/08/19 23:48 Visit Medications: Current Medications Acetaminophen (Tylenol) 650 mg PO Q4H PRN PRN Reason: Headache/Fever/Mild Pain (1-3) Last Admin: 05/09/19 20:17 Dose: 650 mg Albuterol/Ipratropium (Duoneb) 3 ml NEB [id number] PRN PRN Reason: Chest Congestion/Secretions Aspirin (Ecotrin) 81 mg PO DAILY [facility] Last Admin: 05/17/19 08:50 Dose: 81 mg Atorvastatin Calcium (Lipitor) 10 mg PO HS [facility] Last Admin: 05/17/19 20:00 Dose: 10 mg Digoxin (Lanoxin) 0.125 mg PO DAILY [facility] Diltiazem HCl (Cardizem Cd) 240 mg PO DAILY [facility] Last Admin: 05/17/19 08:50 Dose: 240 mg Dronedarone (Multaq) 400 mg PO BID-WM [facility] Last Admin: 05/17/19 16:55 Dose: 400 mg Gabapentin (Neurontin) 300 mg PO DAILY [facility] Last Admin: 05/17/19 08:50 Dose: 300 mg Hydralazine HCl (Apresoline) 10 mg SLOW IVP Q4H PRN PRN Reason: SBP > 180 and HR < 70 Mometasone Furoate/Formoterol Fumar (Dulera 200 Mcg/5 Mcg Inhaler) 1 puff INH BID-RT [facility] Last Admin: 05/17/19 18:50 Dose: Not Given Rivaroxaban (Xarelto) 15 mg PO 1700 [facility] Last Admin: 05/17/19 16:55 Dose: 15 mg Sertraline HCl (Zoloft) 150 mg PO DAILY [facility] Last Admin: 05/17/19 08:51 Dose: 150 mg Sodium Chloride (Flush - Normal Saline) 10 ml IVF Q12HR [facility] Last Admin: 05/17/19 20:00 Dose: 10 ml Sodium Chloride (Flush - Normal Saline) 10 ml IVF PRN PRN PRN Reason: Saline Flush Vital Signs & Weight: Vital Signs Temp Pulse Resp BP Pulse Ox 05/18/19 04:00 98.0 F 77 20 136/60 936 H 05/17/19 19:30 98.9 F 87 18 109/56 L 95 Admit Weight 101 lb 6.602 oz Weight 98 lb 8 oz - Physical Exam General: appears well, no apparent distress, cachectic HEENT: mucus membranes moist, normocephaly, EOMI Neck: supple neck, midline trachea, no JVD/HJR Cardiac: no murmur, irregularly regular, tachycardia Lungs: clear to auscultation, no rales, no rhonchi, wheezes Neuro: cranial nerve 2-12 intact, grossly intact, no lateralizing findings Abdomen: unremarkable, soft, no masses Extremities: no cyanosis, no clubbing, no edema - Labs Result Diagrams: 05/11/19 08:06 05/11/19 08:06 - Telemetry Supraventricular conduction: atrial fibrillation - Assessment/Plan Assessment/Plan: 1. Atrial fibrillation - refractory to Flecainide 100mg with CV - Started multaq 400mg BID on 05/16. on Dilt 240mg QD. added low dose digoxin 125mcg QD. 2. COPD 3. Preserved EF 4. CHADS2-VASC: 6 - Continue xarelto CV planned for tomorrow. If rhythm is refractory to multaq, will stop AAD for rate control alone. Given her hypotension issues she may be difficult to rate control medically and may require AVJ with PPM implant. Poor ablation candidate with her frail status and advanced COPD. Will keep NPO after midnight. Anticipate CV after 1300 Participated in pt encounter/formulatin of the plan. Agree with Mrs Mccray.
[2019-05-18] MEDS: Mometasone/Formoterol 120 PUFF INHALER INH SCH ×2 (07:48→18:55)
[2019-05-18] MEDS: Aspirin 81 mg Enteric Coated Tablet PO SCH (08:19)
[2019-05-18] MEDS: Dronedarone HCl 400 MG TAB PO SCH ×2 (08:19→16:01)
[2019-05-18] MEDS: Digoxin 0.125 MG TAB PO SCH (08:19)
[2019-05-18] MEDS: Gabapentin 300 MG CAP PO SCH (08:20)
--- NOTE | 2019-05-18 10:48 | PDOC.HOSPP ---
- Subjective Encounter Date: 05/18/19 Encounter Time: 10:45 Subjective: f/u for A-fib on Digoxin/Diltiazem/Multaq with planned cardioversion on . Feels weak but overall ok. - Objective Vital Signs & Weight: Vital Signs (12 hours) Temp Pulse Resp BP Pulse Ox 05/18/19 08:20 91 05/18/19 07:44 98.8 F 91 16 115/56 L 98 05/18/19 07:40 98 05/18/19 04:00 98.0 F 77 20 136/60 936 H Weight Admit Weight 101 lb 6.602 oz Weight 98 lb 8 oz I&O: 05/17/19 05/18/19 05/19/19 06:59 06:59 06:59 Intake Total 1750 1020 Output Total 1200 300 Balance 550 720 Result Diagrams: 05/11/19 08:06 05/11/19 08:06 EKG Reviewed by me: Yes (Tele - A-flutter/fib) Hospitalist ROS - Medication Medications: Active Medications Generic Name Dose Route Start Last Admin Trade Name Freq PRN Reason Stop Dose Admin Acetaminophen 650 mg 05/09/19 09:18 05/09/19 20:17 Tylenol PO 650 mg Q4H PRN Administration Headache/Fever/Mild Pain (1-3) Aspirin 81 mg 05/09/19 09:00 05/18/19 08:19 Ecotrin PO 81 mg DAILY [facility] Administration Atorvastatin Calcium 10 mg 05/09/19 21:00 05/17/19 20:00 Lipitor PO 10 mg HS [facility] Administration Digoxin 0.125 mg 05/18/19 09:00 05/18/19 08:19 Lanoxin PO 0.125 mg DAILY [facility] Administration Diltiazem HCl 240 mg 05/09/19 09:00 05/18/19 08:20 Cardizem Cd PO 240 mg DAILY [facility] Administration Dronedarone 400 mg 05/17/19 08:00 05/18/19 08:19 Multaq PO 400 mg BID-WM [facility] Administration Gabapentin 300 mg 05/14/19 09:00 05/18/19 08:20 Neurontin PO 300 mg DAILY [facility] Administration Mometasone Furoate/Formoterol Fumar 1 puff 05/16/19 09:08 05/18/19 07:48 Dulera 200 Mcg/5 Mcg Inhaler INH Not Given BID-RT [facility] Rivaroxaban 15 mg 05/09/19 17:00 05/17/19 16:55 Xarelto PO 15 mg 1700 [facility] Administration Sertraline HCl 150 mg 05/13/19 09:00 05/18/19 08:25 Zoloft PO 150 mg DAILY [facility] Administration Sodium Chloride 10 ml 05/13/19 09:00 05/18/19 08:19 Flush - Normal Saline IVF 10 ml Q12HR [facility] Administration - Exam General Appearance: NAD, awake alert Eye: PERRL, anicteric sclera ENT: normocephalic atraumatic, no oropharyngeal lesions Neck: supple, symmetric, no JVD, no thyromegaly Heart: no gallops, no rubs, irregular Respiratory - other findings: diminished in bases Gastrointestinal: soft, non-tender, non-distended, normal bowel sounds, no palpable masses Extremities: no cyanosis, no clubbing, no edema Skin: normal turgor, no lesions Neurological: cranial nerve grossly intact, no new deficit Musculoskeletal: normal tone, generalized weakness Psychiatric: normal affect, A&O x 3 Hosp A/P (1) Acute on chronic respiratory failure with hypoxia Code(s): J96.21 - ACUTE AND CHRONIC RESPIRATORY FAILURE WITH HYPOXIA Status: Acute Plan: Secondary to COPD and A-flutter/fib, continue pulm support, O2 supplementation (2) COPD exacerbation Code(s): J44.1 - CHRONIC OBSTRUCTIVE PULMONARY DISEASE W (ACUTE) EXACERBATION Status: Acute Plan: Improved, continue Dulera/Duonebs (3) Atrial fibrillation Code(s): I48.91 - UNSPECIFIED ATRIAL FIBRILLATION Status: Chronic Plan: Continue Digoxin/Diltiazem/Multaq/Xarelto, plan for cardioversion 05/19/19 (4) Tobacco abuse Code(s): Z72.0 - TOBACCO USE Status: Chronic (5) Chronic kidney disease, stage 2 (mild) Code(s): N18.2 - CHRONIC KIDNEY DISEASE, STAGE 2 (MILD) Status: Chronic - Plan PT/OT, social insurance adviser, respiratory therapy, out of bed/ambulate, DVT proph w/ SCDs Stable currently Plan for CV on 05/19/19 Continue Digoxin/Multaq/Diltiazem/Xarelto OOB with PT SNF/swing bed for d/c in [place]
[2019-05-18] MEDS: Rivaroxaban 15 MG TAB PO SCH (16:01)
[2019-05-18] MEDS: Atorvastatin Calcium 10 MG TAB PO SCH (20:17)
[2019-05-19 05:20] LABS: Band 1 % (5-11); Eosinophils 2 % (0-10); Hemoglobin 8.3 g/dL (12.0-16.0); Lymphocytes 13 % (21-51); MDiff Complete? YES; Mean Corpuscular HGB CONC 31.4 g/dL (32.0-36.0); Mean Corpuscular Hemoglobin 31.5 pg (27.0-31.0); Mean Platelet Volume 7.3 fL (7.4-10.4); Monocytes 8 % (0-10); Neutrophil 76 % (42-75); Platelet Count 338 thou/uL (130-400); Platelet Morphology Comment Appears Adequate; RBC Distribution Width 12.1 % (11.5-14.5); Red Blood Cell (RBC) Count 2.62 mill/uL (4.20-5.40); White Blood Cell (WBC) Count 12.8 thou/uL (4.8-10.8)
[2019-05-19 05:22] LABS: BUN (Urea Nitrogen) 26 mg/dL (9.8-20.1); Calc. Creatinine Clearance 40 mL/min (70-130); Calcium 8.8 mg/dL (7.8-10.44); Estimated GFR-MDRD 61; Glucose 98 mg/dL (83-110)
[2019-05-19 05:33] LABS: Anion Gap 12 mmol/L (10-20); Carbon Dioxide 38 mmol/L (23-31); Chloride 94 mmol/L (98-107); Potassium 4.5 mmol/L (3.5-5.1); Sodium 139 mmol/L (136-145)
[2019-05-19] MEDS: Mometasone/Formoterol 120 PUFF INHALER INH SCH ×2 (07:13→18:32)
[2019-05-19] MEDS: Aspirin 81 mg Enteric Coated Tablet PO SCH (08:34)
[2019-05-19] MEDS: Digoxin 0.125 MG TAB PO SCH (08:34)
[2019-05-19] MEDS: Dronedarone HCl 400 MG TAB PO SCH ×2 (08:35→16:29)
[2019-05-19] MEDS: Gabapentin 300 MG CAP PO SCH (08:35)
[2019-05-19] MEDS ORDERED: PROPOFOL 200 MG/20 ML VIAL ONE (11:36)
--- NOTE | 2019-05-19 13:44 | CON ---
DATE OF CONSULTATION: 05/16/2019 Dictated by ROSSY Brian, as scribe for Dr. Ya. REASON FOR CONSULTATION: Atrial fibrillation. HISTORY OF PRESENT ILLNESS: Ms. Beasley is a woman, previously referred in 2016 for frequent PACs, PVCs, and multifocal atrial tachyarrhythmias. There was a concern for atrial fibrillation at that time, but no true or sustained atrial arrhythmias were seen. At that point, she was only having paroxysmal atrial tachycardia, runs up to 6.5 seconds. She has advanced COPD, and at that point had congestive heart failure and diastolic heart failure, that had been exacerbated by atrial arrhythmias. She was placed on diltiazem and recommendation for Multaq was made should further arrhythmias be seen. Since that time, she has been diagnosed with atrial fibrillation and she was placed on flecainide 50 mg b.i.d. She underwent cardioversion and had recurrence of atrial arrhythmias. This was further increased to 100 mg b.i.d. and she continues to have arrhythmia recurrences, prompting EP consultation. Ms. Beasley is feeling tired, but overall well. She has some shortness of breath , which is chronic and longstanding issue with her and occasionally gets wheezy. Otherwise, she does not have any cardiac concerns or complaints today. REVIEW OF SYSTEMS: A 12-point review of systems is conducted and is negative except that listed above in HPI. PAST MEDICAL HISTORY: 1. Atrial fibrillation, refractory to flecainide. 2. Advanced COPD. 3. Diastolic dysfunction. 4. Hypertension. 5. Hyperlipidemia. 6. CHADS-VASc score of 6. 7. Carotid endarterectomy. 8. Stroke. ALLERGIES: NO KNOWN DRUG ALLERGIES. MEDICATIONS: Home medication list; 1. Ventolin as needed. 2. Zoloft 150 mg daily. 3. Xarelto 15 mg q.p.m. 4. Pravachol 40 mg nightly. 5. Advair Diskus b.i.d. 6. Diltiazem 240 mg daily. 7. Aspirin 81 mg daily. 8. Albuterol as needed. 9. Zestril 5 mg b.i.d. 10. DuoNeb as needed. 11. Neurontin 300 mg daily. 12. Tylenol as needed. SOCIAL HISTORY: She is . No children. Denies alcohol or illicit drug use. Positive for tobacco. FAMILY HISTORY: Noncontributory. OBJECTIVE: VITAL SIGNS: Temperature 99.2 Fahrenheit, pulse 127, blood pressure 94/53, respirations 18, and oxygen is 94% on 3L via nasal cannula. GENERAL: The patient is alert and oriented. Speech is clear. Affect is appropriate. She is resting comfortably in bed at the time of exam, in no apparent distress. NECK: Supple without jugular venous distention. There is no lymphadenopathy. Carotids are without bruits. LUNGS: Clear to auscultation with expiratory wheezes. No crackles or rhonchi appreciated. Respirations are even and unlabored. HEART: Rate is irregularly irregular and occasionally rapid. PMI is nondisplaced. ABDOMEN: Soft and nontender without palpable masses. Hepatojugular reflux is negative. EXTREMITIES: Warm and dry to touch and well perfused without clubbing, cyanosis , or edema. DATABASE: EKG and telemetry showed atrial fibrillation with somewhat improved rate control since the addition of digoxin and Multaq. No new or recent laboratory results. IMPRESSION: 1. Atrial fibrillation, refractory to class 1C flecainide antiarrhythmic agents and cardioversion. 2. [id number] chronic obstructive pulmonary disease with exacerbation. 3. Oral anticoagulation with Xarelto. 4. Preserved left ventricular ejection fraction. RECOMMENDATIONS: We will stop flecainide in favor of Multaq. Should her arrhythmias be refractory to Multaq, then at that point, my recommendation would be for rate control with oral agents. We would continue diltiazem and digoxin as tolerated. She is already struggling with some hypotension issues with low-dose diltiazem, and ultimately she may require pacemaker and AVJ ablation if rate control fails. She has multiple comorbidities. She appears much older than her stated age, has advanced COPD, and she is a poor ablative candidate for PVAI. Thank you for allowing me to participate in the care of this patient. Job ID: [id number] [facility]
[2019-05-19] MEDS ORDERED: PROPOFOL 0 ML ONE (14:48)
--- NOTE | 2019-05-19 15:02 | PDOC.CPN ---
- Subjective Date: 05/19/19 Time: 15:03 Interval history: EP PROGRESS NOTE: 05/19/19 Follow up for atrial fibrillation and medication management. patient reports poor sleep and feels fatigued, otherwise without complaint - Review of Systems General: reports: fatigue. denies: fever/chills, weight/appetite/sleep changes , night sweats Respiratory: denies: cough, congestion, shortness of breath, exercise intolerance Cardiovascular: denies: chest pain, palpitation, edema, paroxysmal nocturnal dyspnea, orthopnea Gastrointestinal: denies: nausea, vomiting, diarrhea, constipation, abd pain, GI bleeding Neurological: reports: weakness - Objective Allergies/Adverse Reactions: Allergies Allergy/AdvReac Type Severity Reaction Status Date / Time No Known Drug Allergies Allergy Verified 05/08/19 23:48 Visit Medications: Current Medications Acetaminophen (Tylenol) 650 mg PO Q4H PRN PRN Reason: Headache/Fever/Mild Pain (1-3) Last Admin: 05/09/19 20:17 Dose: 650 mg Albuterol/Ipratropium (Duoneb) 3 ml NEB [id number] PRN PRN Reason: Chest Congestion/Secretions Aspirin (Ecotrin) 81 mg PO DAILY [facility] Last Admin: 05/19/19 08:34 Dose: 81 mg Atorvastatin Calcium (Lipitor) 10 mg PO HS [facility] Last Admin: 05/18/19 20:17 Dose: 10 mg Digoxin (Lanoxin) 0.125 mg PO DAILY [facility] Last Admin: 05/19/19 08:34 Dose: 0.125 mg Diltiazem HCl (Cardizem Cd) 240 mg PO DAILY [facility] Last Admin: 05/19/19 08:34 Dose: 240 mg Dronedarone (Multaq) 400 mg PO BID-[facility] Last Admin: 05/19/19 08:35 Dose: 400 mg Gabapentin (Neurontin) 300 mg PO DAILY [facility] Last Admin: 05/19/19 08:35 Dose: 300 mg Hydralazine HCl (Apresoline) 10 mg SLOW IVP Q4H PRN PRN Reason: SBP > 180 and HR < 70 Mometasone Furoate/Formoterol Fumar (Dulera 200 Mcg/5 Mcg Inhaler) 1 puff INH BID-RT [facility] Last Admin: 05/19/19 07:13 Dose: Not Given Rivaroxaban (Xarelto) 15 mg PO 1700 [facility] Last Admin: 05/18/19 16:01 Dose: 15 mg Sertraline HCl (Zoloft) 150 mg PO DAILY [facility] Last Admin: 05/19/19 08:34 Dose: 150 mg Sodium Chloride (Flush - Normal Saline) 10 ml IVF Q12HR [facility] Last Admin: 05/19/19 08:34 Dose: 10 ml Sodium Chloride (Flush - Normal Saline) 10 ml IVF PRN PRN PRN Reason: Saline Flush Vital Signs & Weight: Vital Signs Temp Pulse Resp BP BP BP Pulse Ox 05/19/19 11:14 97.7 F 86 18 113/57 L 98 05/19/19 08:34 86 05/19/19 07:11 97.3 F L 86 16 129/60 100 05/19/19 03:53 96.2 F L 96 18 128/59 L 98 Admit Weight 101 lb 6.602 oz Weight 100 lb 8 oz - Physical Exam General: appears well, no apparent distress HEENT: mucus membranes moist, normocephaly Neck: supple neck, midline trachea, no JVD/HJR, no masses, no bruit, no lymphadenopathy, no thromegaly Cardiac: regular rate and rhythm, no murmur, regular rate, regular rhythm Lungs: clear to auscultation, normal breath sounds, normal exam, no wheeze, rales, rhonchi - Labs Result Diagrams: 05/19/19 04:18 05/19/19 04:18 - Telemetry Sinus rhythms and dysrhythmias: sinus rhythm - Assessment/Plan Assessment/Plan: 1. Atrial fibrillation - refractory to Flecainide 100mg with CV - Started multaq 400mg BID on 05/16. on Dilt 240mg QD. added low dose digoxin 125mcg QD. 2. COPD 3. Preserved EF 4. CHADS2-VASC: 6 - Continue xarelto CV successful. Stopping digoxin. If rhythm is refractory to multaq, will stop AAD for rate control alone. Given her hypotension issues she may be difficult to rate control medically and may require AVJ with PPM implant. Poor ablation candidate with her frail status and advanced COPD. Will see back to clinic in 6 weeks
--- NOTE | 2019-05-19 15:44 | PDOC.HOSPP ---
- Subjective Encounter Date: 05/19/19 Encounter Time: 15:42 Subjective: 73 y/o female with COPD, atrial fibrillation s/p recent KEIRY cardioversion, chronic diastolic HF, PAD and RLS admitted with acute chest pain and SOB. Found to be in atrial fib with RVR. Patient has been refractory to medications and had cardioversion earlier today. No new problem. - Objective Vital Signs & Weight: Vital Signs (12 hours) Temp Pulse Resp BP BP BP Pulse Ox 05/19/19 11:14 97.7 F 86 18 113/57 L 98 05/19/19 08:34 86 05/19/19 07:11 97.3 F L 86 16 129/60 100 05/19/19 03:53 96.2 F L 96 18 128/59 L 98 Weight Admit Weight 101 lb 6.602 oz Weight 100 lb 8 oz I&O: 05/18/19 05/19/19 05/20/19 06:59 06:59 06:59 Intake Total 1020 1010 Output Total 300 1400 Balance 720 -390 Result Diagrams: 05/19/19 04:18 05/19/19 04:18 Hospitalist ROS - Medication Medications: Active Medications Generic Name Dose Route Start Last Admin Trade Name Freq PRN Reason Stop Dose Admin Acetaminophen 650 mg 05/09/19 09:18 05/09/19 20:17 Tylenol PO 650 mg Q4H PRN Administration Headache/Fever/Mild Pain (1-3) Aspirin 81 mg 05/09/19 09:00 05/19/19 08:34 Ecotrin PO 81 mg DAILY [facility] Administration Atorvastatin Calcium 10 mg 05/09/19 21:00 05/18/19 20:17 Lipitor PO 10 mg HS [facility] Administration Diltiazem HCl 240 mg 05/09/19 09:00 05/19/19 08:34 Cardizem Cd PO 240 mg DAILY [facility] Administration Dronedarone 400 mg 05/17/19 08:00 05/19/19 08:35 Multaq PO 400 mg BID-WM [facility] Administration Gabapentin 300 mg 05/14/19 09:00 05/19/19 08:35 Neurontin PO 300 mg DAILY [facility] Administration Mometasone Furoate/Formoterol Fumar 1 puff 05/16/19 09:08 05/19/19 07:13 Dulera 200 Mcg/5 Mcg Inhaler INH Not Given BID-RT [facility] Rivaroxaban 15 mg 05/09/19 17:00 05/18/19 16:01 Xarelto PO 15 mg 1700 [facility] Administration Sertraline HCl 150 mg 05/13/19 09:00 05/19/19 08:34 Zoloft PO 150 mg DAILY [facility] Administration Sodium Chloride 10 ml 05/13/19 09:00 05/19/19 08:34 Flush - Normal Saline IVF 10 ml Q12HR [facility] Administration - Exam General - other findings: chronically ill looking Eye: anicteric sclera ENT: normocephalic atraumatic Neck: supple, no JVD Heart: RRR Respiratory - other findings: fair air entry with prolonged expirtationb and scatterted transmitted sound Gastrointestinal: soft, non-tender, non-distended, normal bowel sounds Extremities: no edema Neurological: cranial nerve grossly intact, no focal deficits Psychiatric: A&O x 3 Hosp A/P (1) Acute on chronic respiratory failure with hypoxia Code(s): J96.21 - ACUTE AND CHRONIC RESPIRATORY FAILURE WITH HYPOXIA Status: Acute (2) Atrial fibrillation Code(s): I48.91 - UNSPECIFIED ATRIAL FIBRILLATION Status: Chronic (3) Acute on chronic diastolic (congestive) heart failure Code(s): I50.33 - ACUTE ON CHRONIC DIASTOLIC (CONGESTIVE) HEART FAILURE Status : Acute (4) COPD exacerbation Code(s): J44.1 - CHRONIC OBSTRUCTIVE PULMONARY DISEASE W (ACUTE) EXACERBATION Status: Acute (5) Tobacco abuse Code(s): Z72.0 - TOBACCO USE Status: Chronic (6) RLS (restless legs syndrome) Status: Acute (7) Chronic anemia Code(s): D64.9 - ANEMIA, UNSPECIFIED Status: Acute - Plan Atrial fib treatment as per cardiology and EPS. Get iron chemistry in the am. Continue bronchodilators and oxygen supplemenbtation. Re assess in the am for possible discharge. AVJ with PPM placement contemplated by EPS.
--- NOTE | 2019-05-19 16:20 | OP ---
DATE OF PROCEDURE: 05/19/2019 PROCEDURE PERFORMED: Electrical cardioversion. INDICATIONS FOR PROCEDURE: Ms. Beasley is a 73-year-old female with history of persisting atrial fibrillation. Prior cardioversion attempts and also flecainide, but with eventual recurrence. Now, flecainide was stopped and then is on Multaq instead last 4 days. Heart rates are better controlled and she is still in atrial fibrillation. She is currently anticoagulated with Xarelto and she is here for cardioversion. DESCRIPTION OF PROCEDURE: The patient received propofol by anesthesia specialist. After adequate level of sedation achieved, a synchronized 100-joule shock promptly converted the patient back to sinus rhythm. The patient tolerated the procedure well. No complications noted. CONCLUSION: Successful cardioversion. PLAN: Continue anticoagulation and Multaq. Monitor for recurrent arrhythmias. Job ID: [id number]
[2019-05-19] MEDS: Rivaroxaban 15 MG TAB PO SCH (16:29)
[2019-05-19] MEDS: Atorvastatin Calcium 10 MG TAB PO SCH (21:00)
[2019-05-20 05:48] LABS: BUN (Urea Nitrogen) 27 mg/dL (9.8-20.1); Calc. Creatinine Clearance 40 mL/min (70-130); Calcium 9.4 mg/dL (7.8-10.44); Estimated GFR-MDRD 59; Glucose 101 mg/dL (83-110); Iron 24 ug/dL (50-170); Iron Binding Capacity, Total 281 mcg/dL (265-497); Magnesium 1.8 mg/dL (1.6-2.6)
[2019-05-20 06:03] LABS: Anion Gap 15 mmol/L (10-20); Carbon Dioxide 37 mmol/L (23-31); Chloride 91 mmol/L (98-107); Potassium 4.6 mmol/L (3.5-5.1); Sodium 138 mmol/L (136-145)
[2019-05-20] MEDS: Mometasone/Formoterol 120 PUFF INHALER INH SCH ×2 (07:29→18:58)
[2019-05-20] MEDS: Aspirin 81 mg Enteric Coated Tablet PO SCH (08:09)
[2019-05-20] MEDS: Dronedarone HCl 400 MG TAB PO SCH ×2 (08:09→18:36)
[2019-05-20] MEDS: Gabapentin 300 MG CAP PO SCH (08:09)
[2019-05-20] MEDS: Magnesium Oxide 400 MG TAB PO SCH ×2 (08:10→20:50)
[2019-05-20] MEDS ORDERED: Iron Sucrose Complex 400 MG in Sodium Chloride 0.9% 250 ML 250 ML IVPB SCH (10:00)
[2019-05-20] MEDS: Rivaroxaban 15 MG TAB PO SCH (18:36)
[2019-05-20] MEDS: Atorvastatin Calcium 10 MG TAB PO SCH (20:50)
--- NOTE | 2019-05-20 21:16 | PDOC.HOSPP ---
- Subjective Encounter Date: 05/20/19 Encounter Time: 08:34 Subjective: 73 y/o female with COPD, atrial fibrillation s/p recent KEIRY cardioversion, chronic diastolic HF, PAD and RLS admitted with acute chest pain and SOB. Found to be in atrial fib with RVR which was refractory to medications, hence had cardioversion 05/19/2019. No new problem. Feeling better. - Objective Vital Signs & Weight: Vital Signs (12 hours) Temp Pulse Resp BP Pulse Ox 05/20/19 12:12 97.8 F 77 20 130/59 L 93 L Weight Admit Weight 101 lb 6.602 oz Weight 98 lb 12.8 oz I&O: 05/19/19 05/20/19 05/21/19 06:59 06:59 06:59 Intake Total 4606 104 1454 Output Total 1400 200 600 Balance -390 400 675 Result Diagrams: 05/19/19 04:18 05/20/19 04:52 Hospitalist ROS - Medication Medications: Active Medications Generic Name Dose Route Start Last Admin Trade Name Freq PRN Reason Stop Dose Admin Acetaminophen 650 mg 05/09/19 09:18 05/09/19 20:17 Tylenol PO 650 mg Q4H PRN Administration Headache/Fever/Mild Pain (1-3) Aspirin 81 mg 05/09/19 09:00 05/20/19 08:09 Ecotrin PO 81 mg DAILY [facility] Administration Atorvastatin Calcium 10 mg 05/09/19 21:00 05/20/19 20:50 Lipitor PO 10 mg HS [facility] Administration Diltiazem HCl 240 mg 05/09/19 09:00 05/20/19 08:09 Cardizem Cd PO 240 mg DAILY [facility] Administration Dronedarone 400 mg 05/17/19 08:00 05/20/19 18:36 Multaq PO 400 mg BID-WM [facility] Administration Gabapentin 300 mg 05/14/19 09:00 05/20/19 08:09 Neurontin PO 300 mg DAILY [facility] Administration Magnesium Oxide 400 mg 05/20/19 09:00 05/20/19 20:50 Magnesium Oxide PO 400 mg BID [facility] Administration Mometasone Furoate/Formoterol Fumar 1 puff 05/16/19 09:08 05/20/19 18:58 Dulera 200 Mcg/5 Mcg Inhaler INH Not Given BID-RT [facility] Rivaroxaban 15 mg 05/09/19 17:00 05/20/19 18:36 Xarelto PO 15 mg 1700 [facility] Administration Sertraline HCl 150 mg 05/13/19 09:00 05/20/19 08:10 Zoloft PO 150 mg DAILY [facility] Administration Sodium Chloride 10 ml 05/13/19 09:00 05/20/19 20:51 Flush - Normal Saline IVF 10 ml Q12HR [facility] Administration - Exam General Appearance: awake alert Eye: anicteric sclera ENT: normocephalic atraumatic Neck: supple Heart: RRR, murmur present Respiratory: normal chest expansion, no tachypnea Respiratory - other findings: fair air entry with prolonged expiration. Gastrointestinal: soft, non-tender, non-distended, normal bowel sounds, diminished bowl sounds Extremities: no cyanosis Neurological: cranial nerve grossly intact, no focal deficits Musculoskeletal: generalized weakness, diffuse muscle atrophy Psychiatric: A&O x 3 Hosp A/P (1) Acute on chronic respiratory failure with hypoxia Code(s): J96.21 - ACUTE AND CHRONIC RESPIRATORY FAILURE WITH HYPOXIA Status: Acute (2) Atrial fibrillation Code(s): I48.91 - UNSPECIFIED ATRIAL FIBRILLATION Status: Chronic (3) Acute on chronic diastolic (congestive) heart failure Code(s): I50.33 - ACUTE ON CHRONIC DIASTOLIC (CONGESTIVE) HEART FAILURE Status : Acute (4) COPD exacerbation Code(s): J44.1 - CHRONIC OBSTRUCTIVE PULMONARY DISEASE W (ACUTE) EXACERBATION Status: Acute (5) Tobacco abuse Code(s): Z72.0 - TOBACCO USE Status: Chronic (6) RLS (restless legs syndrome) Status: Acute (7) Chronic anemia Code(s): D64.9 - ANEMIA, UNSPECIFIED Status: Acute (8) Iron deficiency Code(s): E61.1 - IRON DEFICIENCY Status: Acute - Plan Continue multaq. Replete iron stores with IV iron therapy Continue bronchodilators and oxygen supplemenbtation. For discharge to swing bed tomorrow if still in SR as requested by recieving facility For AVJ ablation with PPM placement if patient goes into afib again. Monitor and Restart lisinopril if BP is consistently elevated.
[2019-05-21] MEDS: Mometasone/Formoterol 120 PUFF INHALER INH SCH (07:38)
[2019-05-21] MEDS: Aspirin 81 mg Enteric Coated Tablet PO SCH (08:50)
[2019-05-21] MEDS: Dronedarone HCl 400 MG TAB PO SCH (08:50)
[2019-05-21] MEDS: Magnesium Oxide 400 MG TAB PO SCH (08:50)
[2019-05-21] MEDS: Gabapentin 300 MG CAP PO SCH (08:51)
[2019-05-21 11:41] VITALS: BP 139/61; TEMP 98.8
--- NOTE | 2019-05-22 06:06 | DIS ---
DATE OF ADMISSION: 05/09/2019 DATE OF DISCHARGE: 05/21/2019 PRIMARY CARE PHYSICIAN: Kaitlyn Lopez MD DISCHARGE DIAGNOSES: 1. Acute on chronic respiratory failure with hypoxia. 2. Refractory paroxysmal atrial fibrillation with rapid ventricular response. 3. Acute on chronic diastolic heart failure. 4. Chronic obstructive pulmonary disease exacerbation. 5. Tobacco abuse disorder. 6. Restless legs syndrome. 7. Chronic anemia. 8. Iron deficiency anemia. 9. of chronic illness. 10. Hypotension. CONSULTS: 1. Cardiology. 2. Metal Coater. 3. Pulmonary and Critical Care. HOSPITAL COURSE: A 73-year-old female with COPD, chronic respiratory failure from COPD, on home oxygen. Recent diagnosis of atrial fibrillation with rapid ventricular response, status post recent KEIRY cardioversion, on chronic anticoagulation; chronic diastolic heart failure, peripheral artery disease, and restless legs syndrome, who was admitted with acute onset of chest pain and shortness of breath. The patient was found to be in atrial fibrillation with rapid ventricular response. The patient's chest discomfort and shortness of breath were felt to be due to acute on chronic diastolic heart failure, due to atrial fibrillation with rapid ventricular response, with contribution from COPD exacerbation, hence the patient was started on bronchodilators, steroid, oxygen supplementation, as well as antibiotics, and Cardizem infusion. Cardiology consult was obtained and given the fact that the patient has been on anticoagulation, a repeat cardioversion was performed. However, the patient flipped back into atrial fibrillation with rapid ventricular response, necessitating EP consult. The patient was started on flecainide, which however did not help as the patient remained in atrial fibrillation. Flecainide was later substituted with Multaq. The patient remained in atrial fibrillation. It was then decided to do a repeat cardioversion, which was successful. EP recommended atrioventricular junction ablation with pacemaker placement should the patient flip back into atrial fibrillation. The patient was observed for 48 hours and she remained in atrial fibrillation and was subsequently discharged to [facility] in [place] for restorative therapy. PHYSICAL EXAMINATION: VITAL SIGNS: Temperature 96.8, pulse 76, respiratory rate 18, SpO2 of 92% on 3 L nasal cannula, and blood pressure is 139/61. GENERAL: Thin, elderly female, in no obvious distress. Afebrile. Anicteric. HEENT: Normocephalic, atraumatic. CARDIOVASCULAR: Regular rhythm and rate with normal heart sounds. Systolic murmur noted. RESPIRATORY: Fair air entry with prolonged respiratory phase with no obvious rhonchi. Work of breathing is mildly increased however. GI: Full, soft, nontender, nondistended with normal bowel sounds. EXTREMITIES: Grossly normal looking, atraumatic, with no edema or erythema. SOFTWARE DEVELOPER CONSULTANT: Conscious, alert, oriented x3 with appropriate mental status. Cranial nerves 2 through 12 are grossly intact. The patient is ambulant with walker. DISCHARGE DISPOSITION: Swing bed at [place]. DISCHARGE CONDITION: Improved. DISCHARGE INSTRUCTIONS: 1. Stroke followup. 2. With chief radiologic technologist in 5 to 6 weeks. 3. With regular inspector glass or mirror, Dr. Parr in 3 to 4 weeks. 4. With primary care physician in 7 days. DISCHARGE MEDICATIONS: 1. Ventolin HFA 1 puff inhalation every 4 hours p.r.n. 2. Albuterol nebulization one neb every 6 hours p.r.n. 3. Fluticasone/salmeterol (Advair) 100/50, one inhalation b.i.d. 4. Pravastatin 40 mg p.o. daily at bedtime. 5. Zoloft 150 mg p.o. daily. 6. Acetaminophen 650 mg q.4 p.r.n. for pain. 7. Aspirin 81 mg p.o. daily. 8. Diltiazem 240 mg p.o. daily. 9. Multaq 400 mg p.o. b.i.d. 10. Gabapentin 300 mg p.o. daily. 11. DuoNeb 3 mL q.6 p.r.n. for shortness of breath. 12. Magnesium oxide 400 mg p.o. b.i.d. 13. Xarelto 15 mg p.o. daily at 17 hours. This discharge took more than 38 minutes. Job ID: [id number]
--- NOTE | 2019-05-23 03:51 | PQF ---
JACINTA STODDARD OBI, CHIZOBA C [id number] CLINICAL DOCUMENTATION CLARIFICATION FORM: POST DISCHARGE Addendum to original discharge summary date: ____ Late entry note date: __ DATE: 05/23/19 ATTN: Khanh Calderon Obi Please exercise your independent, professional judgment in responding to the clarification form. Clinical indicators are provided on the bottom of this form for your review Diagnosis: DS pg.1- acute on chronic diastolic heart failure Present on Admission (POA): [ ] Yes [ ] No [ ] Unable to determine Coding guidelines require hospitals to identify whether a diagnosis was present on admission (POA) or not. To accurately assign the appropriate POA indicator, this information must be clearly documented within the medical record. CLINICAL INDICATORS - SIGNS / SYMPTOMS / LABS H and P pg.3- presents to ER with SOB and chest tightness. This is likely the result of COPD exacerbation H and P pg.3-Chronic diastolic hearth failure Hospitalist PN pg.4 05/10 Dr. Golden- chronic diastolic heart failure- compensated DS pg.1- acute on chronic diastolic heart failure DS pg.1- admitted with acute onset of chest pain and shortness of breath DS pg.1- The patient found to be in atrial fibrillation with rapid ventricular response DS pg.1- The patient chest discomfort and SOB were felt to be due to acute on chronic diastolic hearth failure, due to atrial fibrillation RISK FACTORS: COPD exacerbation- H and P pg.1 Atrial fibrillation- H and P pg.3 Tobacco abuse- Consult Dr. Rinaldi pg.1 05/09 Acute on chronic respiratory failure- Hospitalist PN pg.4 TREATMENT: KEIRY Cardioversion 05/12- OP report pg.1 Chest X ray 05/08 Cardiology Consult- 05/11 Furosemide 40mg IV- AUG 16 (This form is maintained as a part of the permanent medical record) 2014 [employer]. All Rights Reserved Blas [email or web address] [not provided] MTDD
--- NOTE | 2019-05-27 16:04 | EKG ---
Test Reason : SOB Blood Pressure : / mmHG Vent. Rate : 073 BPM Atrial Rate : 073 BPM P-R Int : 132 ms QRS Dur : 078 ms QT Int : 368 ms P-R-T Axes : 073 078 061 degrees QTc Int : 405 ms Normal sinus rhythm Septal infarct , age undetermined Abnormal ECG Left ventricular hypertrophy Right atrial enlargement Confirmed by ALETHA GRACE, ZAHEER Estrella ([id number]), material expeditor QASIM CASEY ([id number]) on 05/27/2019 4:03:29 PM Referred By: PRISCILLA POMPA Confirmed By:ZAHEER POMPA MD
--- NOTE | 2019-05-29 16:56 | EKG ---
Test Reason : Blood Pressure : / mmHG Vent. Rate : 097 BPM Atrial Rate : 277 BPM P-R Int : 000 ms QRS Dur : 086 ms QT Int : 334 ms P-R-T Axes : 000 057 052 degrees QTc Int : 424 ms Atrial flutter Abnormal ECG When compared with ECG of 08-MAY-2019 19:39, (Unconfirmed) Atrial flutter has replaced Sinus rhythm Confirmed by TONIO SHEA M.D. ([id number]) on 05/29/2019 4:55:46 PM Referred By: [facility] Confirmed By:TONIO SHEA M.D.
== END 2019-05-21 15:11 | disposition swing bed (61) | DRG 189 ==
LOC: ERS 19:10 → T4-B 22:52 → OBSVTOIN 05-09 09:18 → 2NO 05-10 18:28
PROVIDERS: ADMIT Family Medicine; ATTEND Family Medicine
PROC: 5A2204Z Restoration of Cardiac Rhythm, Single (ICD-10-PCS; principal; 2019-05-12)
PROC: B24BZZ4 Ultrasonography of Heart with Aorta, Transesophageal (ICD-10-PCS; 2019-05-19)
DX: J96.21 Acute and chronic respiratory failure with hypoxia (principal); I50.33 Acute on chronic diastolic (congestive) heart failure; I47.1 Supraventricular tachycardia; J44.1 Chronic obstructive pulmonary disease with (acute) exacerbation; I13.0 Hypertensive heart and chronic kidney disease with heart failure and stage 1 through stage 4 chronic kidney disease, or unspecified chronic kidney disease; I48.0 Paroxysmal atrial fibrillation; E78.5 Hyperlipidemia, unspecified; G25.81 Restless legs syndrome; D50.9 Iron deficiency anemia, unspecified; I73.9 Peripheral vascular disease, unspecified; K21.9 Gastro-esophageal reflux disease without esophagitis; M81.0 Age-related osteoporosis without current pathological fracture; F41.9 Anxiety disorder, unspecified; J02.9 Acute pharyngitis, unspecified; N18.2 Chronic kidney disease, stage 2 (mild); F41.0 Panic disorder [episodic paroxysmal anxiety]; F17.210 Nicotine dependence, cigarettes, uncomplicated; D63.1 Anemia in chronic kidney disease; E87.6 Hypokalemia; I95.9 Hypotension, unspecified; Z91.14 Patient's other noncompliance with medication regimen; Z99.81 Dependence on supplemental oxygen; Z86.73 Personal history of transient ischemic attack (TIA), and cerebral infarction without residual deficits; Z79.01 Long term (current) use of anticoagulants; Z79.82 Long term (current) use of aspirin; Z79.899 Other long term (current) drug therapy; Z79.51 Long term (current) use of inhaled steroids
CPT/HCPCS: 36415; 71045; 80048; 82728; 83540; 83550; 83735; 85025; 87804; 92960; 93005; 93010; 93880; 94010; 94640; 94644; 94727; 94760; 96374; J1160; J1756; J1940; J2001; J2704; J2920; J2930; J3475; J3490; J7050; J7512; J7611; J7620

== ENCOUNTER 2019-05-29 15:05 | Emergency (ER) | payer MEDICARE, OTHER | END 2019-05-29 18:15 | disposition home or self-care (01) | LOC: ERS 15:05 | DX: I48.91 Unspecified atrial fibrillation (principal); I10 Essential (primary) hypertension; E78.5 Hyperlipidemia, unspecified; J44.9 Chronic obstructive pulmonary disease, unspecified; K21.9 Gastro-esophageal reflux disease without esophagitis; D64.9 Anemia, unspecified; F41.9 Anxiety disorder, unspecified; F17.210 Nicotine dependence, cigarettes, uncomplicated; Z86.73 Personal history of transient ischemic attack (TIA), and cerebral infarction without residual deficits; Z79.51 Long term (current) use of inhaled steroids; Z79.899 Other long term (current) drug therapy | CPT/HCPCS: 93005 ==

== ENCOUNTER 2019-06-21 15:51 | Emergency (ER) | payer MEDICARE, OTHER ==
--- NOTE | 2019-06-21 16:24 | RAD ---
EXAM: Single view of the chest HISTORY: Irregular heartbeat COMPARISON: 05/26/2019 FINDINGS: Single view of the chest shows a normal sized cardiomediastinal silhouette. Atheroscleroti c calcifications are seen in the aorta. There is no evidence of consolidation, mass, or pleural effusion. The bones are unremarkable. IMPRESSION: No evidence of acute cardiopulmonary disease
[2019-06-21 16:26] LABS: #Lymphocytes 1.3 thou/uL (1.20-3.40); #Monocytes 1.2 thou/uL (0.11-0.59); #Neutrophils 6.1 thou/uL (1.40-6.50); %Basophils 0.5 % (0.0-1.0); %Eosinophils 0.2 % (0.0-10.0); %Lymphocytes 14.7 % (21.0-51.0); %Monocytes 13.9 % (0.0-10.0); %Neutrophils 70.7 % (42.0-75.0); Hemoglobin 11.2 g/dL (12.0-16.0); Mean Corpuscular HGB CONC 31.2 g/dL (32.0-36.0); Mean Corpuscular Hemoglobin 30.5 pg (27.0-31.0); Mean Corpuscular Volume 97.8 fL (78.0-98.0); Mean Platelet Volume 7.4 fL (7.4-10.4); Platelet Count 294 thou/uL (130-400); RBC Distribution Width 13.4 % (11.5-14.5); Red Blood Cell (RBC) Count 3.69 mill/uL (4.20-5.40); White Blood Cell (WBC) Count 8.7 thou/uL (4.8-10.8)
[2019-06-21 16:47] LABS: ALT (SGPT) 13 U/L (8-55); AST (SGOT) 20 U/L (5-34); Albumin 4.1 g/dL (3.4-4.8); Alkaline Phosphatase 71 U/L (40-110); Anion Gap 13 mmol/L (10-20); BUN (Urea Nitrogen) 12 mg/dL (9.8-20.1); Bilirubin, Total 0.2 mg/dL (0.2-1.2); Calc. Creatinine Clearance 0 mL/min (70-130); Calcium 9.1 mg/dL (7.8-10.44); Carbon Dioxide 35 mmol/L (23-31); Chloride 97 mmol/L (98-107); Estimated GFR-MDRD 40; Globulin 2.9 g/dL (2.4-3.5); Glucose 120 mg/dL (83-110); Magnesium 1.9 mg/dL (1.6-2.6); Potassium 3.8 mmol/L (3.5-5.1); Sodium 141 mmol/L (136-145)
[2019-06-21 17:09] LABS: CKMB 1.7 ng/mL (0-6.6)
== END 2019-06-21 20:35 | disposition home or self-care (01) ==
LOC: ERS 15:51
DX: I48.20 Chronic atrial fibrillation, unspecified (principal); J44.9 Chronic obstructive pulmonary disease, unspecified; I10 Essential (primary) hypertension; E78.5 Hyperlipidemia, unspecified; F41.9 Anxiety disorder, unspecified; Z86.73 Personal history of transient ischemic attack (TIA), and cerebral infarction without residual deficits
CPT/HCPCS: 36415; 71045; 80053; 82553; 83735; 84484; 85025; 93005

== ENCOUNTER → 2019-07-10 | Day surgery (SDC) | payer MEDICARE, MEDICAID ==
[2019-07-07 10:15] VITALS: BMI 18.3
[~2019-07-10] MED LIST: DOPamine 400 MG/D5W 250 ML 250 ML ONE; Fentanyl 100 MCG/2 ML VIAL ONE; Heparin (Artline) 500 ML ONE; Heparin 10,000 UNITS/1 ML VIAL ONE; Midazolam HCl 2 mg/2 ml Vial ONE; PROPOFOL 200 MG/20 ML VIAL ONE; Propofol 1,000 MG/100 ML VIAL IV ONE
--- NOTE | 2019-07-10 13:20 | OP ---
DATE OF PROCEDURE: 07/10/2019 PROCEDURE PERFORMED: Atrioventricular radha ablation report. REASON FOR PROCEDURE: Ms. Beasley is a 73-year-old female with prior history of persistent atrial fibrillation despite multiple antiarrhythmics and cardioversion in the past. Recurrent and sustained, episode to be very rapid rates, especially at that time for COPD exacerbation. She has preserved LVEF, relatively narrow QRS, moderate MR, [id number] TR as well. She is here for AV radha ablation, His pacing, Bi-V pacemaker implantation. DESCRIPTION OF PROCEDURE: The patient received deep sedation by an anesthesia specialist. The right femoral venous area was prepped and draped, anesthetized using subcutaneous lidocaine. Under ultrasound guidance, the right femoral vein was cannulated with 8-Faroese short sheath, it was introduced. A ThermoCool SFST catheter was advanced to the right atrium. 3D map of the right atrium, His bundle, and CS locations were well mapped out. The HV interval was measured at 53 milliseconds. Following that, we proceeded with the implantation of His pacing Bi-V pacemaker utilizing the CARTO system as well for lead positioning. After adequate lead parameters and the pacemaker function was achieved, the radiofrequency ablation was delivered at the AV radha fast and slow pathway areas, eliminating AV radha conduction. Junctional escape rhythm was seen at 50 beats per minute with occasional PVCs. Total of 5 lesions delivered at 4 minutes and 23 seconds, and in the end, junctional escape was seen at 50 beats per minute. Dopamine was administered and reconnection was checked. In the end of case, pacemaker had adequate function, adequate His capture noted and no other complications noted. CONCLUSION: 1. Successful atrioventricular radha ablation. 2. Adequate functioning biventricular pacemaker, pacing of the His with the LV lead. PLAN: Resume anticoagulation. Monitor for recurrent conducted atrial fibrillation. Job ID: [id number]
--- NOTE | 2019-07-10 17:07 | RAD ---
Exam: Chest one view HISTORY:Pacemaker placement Comparison: 06/21/2019 FINDINGS: Pacemaker: Interval placement of a left-sided transvenous pacemaker with lead positioned over the rig ht ventricle and possibly the coronary sinus. Lateral radiograph be beneficial. Cardiac silhouette: Normal Aorta: Atherosclerosis Pulmonary vessels: Normal Costophrenic angles: Clear LUNGS: No masses or consolidation. Hyperinflation. Chronic changes. Pneumothorax: None Osseous abnormalities: Remote injury to the proximal right humerus IMPRESSION: Left-sided transvenous pacemaker as above. No pneumothorax. Two-view radiograph is recomm ended.
== END ==
LOC: CCL 06:26
PROVIDERS: ATTEND Internal Medicine Cardiovascular Disease
PROC: 0JH607Z Insertion of Cardiac Resynchronization Pacemaker Pulse Generator into Chest Subcutaneous Tissue and Fascia, Open Approach (ICD-10-PCS; principal; 2019-07-10)
PROC: 02HK3JZ Insertion of Pacemaker Lead into Right Ventricle, Percutaneous Approach (ICD-10-PCS; 2019-07-10)
PROC: 02H43JZ Insertion of Pacemaker Lead into Coronary Vein, Percutaneous Approach (ICD-10-PCS; 2019-07-10)
DX: I48.19 Other persistent atrial fibrillation (principal); I08.1 Rheumatic disorders of both mitral and tricuspid valves; I51.89 Other ill-defined heart diseases; J44.9 Chronic obstructive pulmonary disease, unspecified; E78.5 Hyperlipidemia, unspecified; Z79.01 Long term (current) use of anticoagulants; Z79.51 Long term (current) use of inhaled steroids; Z79.82 Long term (current) use of aspirin; Z79.899 Other long term (current) drug therapy; Z86.73 Personal history of transient ischemic attack (TIA), and cerebral infarction without residual deficits
CPT/HCPCS: 33208; 36005; 71045; 75820; 76942; 93600; 93613; 93623; 93650; C1732; C1769; C1882; C1898; J0690; J1265; J1644; J2250; J2704; J3010; J3490; J7620

== ENCOUNTER 2019-11-14 16:33 | Emergency (ER) | payer MEDICARE, OTHER ==
[2019-11-14] MEDS ORDERED: Ketorolac Tromethamine 30 MG/ML VIAL ONE (17:15)
--- NOTE | 2019-11-14 17:20 | RAD ---
XR Chest Pa Lat STANDARD HISTORY: Chest pain, midthoracic back pain, COPD, atrial fibrillation COMPARISON: 08/08/2019 FINDINGS: The heart size normal. The aorta is tortuous. A left-sided pacer device is again seen. Digital Community Manager stiven changes in the lung gore are again noted. Changes of COPD are redemonstrated. No lobar consolidation, pneumothoraces or pleural effusions are seen. Compressed thoracic vertebral bodies aga in noted. IMPRESSION: No radiographic evidence of acute cardiopulmonary process.
[2019-11-14] MEDS ORDERED: predniSONE 50 MG TAB PO SCH (17:30)
[2019-11-14] MEDS ORDERED: HYDROcodone/Acetaminophen 5/325 mg Tablet ONE (17:59)
--- NOTE | 2019-11-14 20:09 | RAD ---
THORACIC SPINE THREE VIEWS: 11/14/19 HISTORY: Mid thoracic pain. FINDINGS/IMPRESSION: There are compression deformities of mid thoracic vertebral bodies also seen on the CT scan of . No subluxation is seen. POS: L[facility]
== END 2019-11-14 20:10 | disposition home or self-care (01) ==
LOC: ERS 16:33
DX: M54.6 Pain in thoracic spine (principal); J44.1 Chronic obstructive pulmonary disease with (acute) exacerbation; I50.9 Heart failure, unspecified; E78.5 Hyperlipidemia, unspecified; Z86.73 Personal history of transient ischemic attack (TIA), and cerebral infarction without residual deficits; K21.9 Gastro-esophageal reflux disease without esophagitis; F41.9 Anxiety disorder, unspecified; Z87.891 Personal history of nicotine dependence; Z79.82 Long term (current) use of aspirin; Z79.899 Other long term (current) drug therapy
CPT/HCPCS: 71046; 72072; 96374; J1885; J7512

== ENCOUNTER 2019-11-27 14:30 | Observation (INO) | payer MEDICARE, MEDICAID, OTHER ==
[2019-11-27 15:22] LABS: Hemoglobin 10.4 g/dL (12.0-16.0); Mean Corpuscular HGB CONC 30.2 g/dL (32.0-36.0); Mean Corpuscular Hemoglobin 28.8 pg (27.0-31.0); Mean Corpuscular Volume 95.6 fL (78.0-98.0); Mean Platelet Volume 7.5 fL (7.4-10.4); Platelet Count 248 thou/uL (130-400); RBC Distribution Width 15.2 % (11.5-14.5); Red Blood Cell (RBC) Count 3.59 mill/uL (4.20-5.40)
--- NOTE | 2019-11-27 15:30 | RAD ---
EXAM: Single view of the chest HISTORY: Fall with difficulty breathing for a few days COMPARISON: 08/25/2019 FINDINGS: Single view of the chest shows an enlarged but stable cardiomediastinal silhouette. The pa cemaker is unchanged in position. Atherosclerotic calcific lesions are seen in the aorta. Stable increased interstitial markings are present. There is no evidence of consolidation, mass, or pleural effusion. There appears to be a remote healed right proximal humerus fracture IMPRESSION: Cardiomegaly without evidence of acute cardiopulmonary disease
[2019-11-27 15:45] LABS: Band 1 % (5-11); Hypochromia SLIGHT = 6-15 cells (100X) (0-5/hpf); Lymphocytes 6 % (21-51); MDiff Complete? YES; Monocytes 18 % (0-10); Neutrophil 73 % (42-75); Platelet Morphology Comment Appears Adequate; Polychromasia SLIGHT = 2-3 cells (100X) (0-2/hpf); Reactive Lymphocytes 1 % (0-10); Target Cells SLIGHT = 2-5 cells (100X) (0-1/hpf)
[2019-11-27 15:55] LABS: ALT (SGPT) 42 U/L (8-55); AST (SGOT) 42 U/L (5-34); Albumin 3.9 g/dL (3.4-4.8); Alkaline Phosphatase 88 U/L (40-110); BUN (Urea Nitrogen) 12 mg/dL (9.8-20.1); Bilirubin, Total 0.5 mg/dL (0.2-1.2); Calc. Creatinine Clearance 0 mL/min (70-130); Calcium 9.4 mg/dL (7.8-10.44); Estimated GFR-MDRD 72; Globulin 2.8 g/dL (2.4-3.5); Glucose 117 mg/dL (83-110); Magnesium 1.3 mg/dL (1.6-2.6); Protein, Total 6.7 g/dL (6.0-8.3)
[2019-11-27 16:20] LABS: Anion Gap 16 mmol/L (10-20); Carbon Dioxide 38 mmol/L (23-31); Chloride 86 mmol/L (98-107); Potassium 3.1 mmol/L (3.5-5.1); Sodium 137 mmol/L (136-145)
[2019-11-27 16:41] LABS: CKMB 7.7 ng/mL (0-6.6)
[2019-11-27] MEDS ORDERED: Nitroglycerin 2% Ointment 1 INCH/1 GM Packet ONE (16:43)
[2019-11-27] MEDS ORDERED: Magnesium 2 GM/50 ML BAG (IN WATER) ONE (17:08)
[2019-11-27] MEDS ORDERED: Acetaminophen 500 MG TAB ONE (17:08)
[2019-11-27] MEDS ORDERED: Potassium Chloride 40 MEQ in Sodium Chloride 0.9% 250 ML 250 ML IVPB SCH (17:15)
--- NOTE | 2019-11-27 17:35 | CT ---
CT BRAIN WITHOUT CONTRAST: History: Trauma, fall, laceration to the right eye, and head. Headache. FINDINGS: Comparison is made with exam of 01-09-2020. Changes of chronic small vessel ischemic disease is again seen. The ventricular size is appropriate a nd the basilar cisterns patent. No evidence of acute infarct, hemorrhage, midline shift or abnormal e xtraaxial fluid collections are noted. The bony calvarium is intact. The visualized paranasal sinuses and mastoid air cells are well aerated. IMPRESSION: No CT evidence of acute intracranial process. POS: [facility]
[2019-11-27] MEDS ORDERED: Furosemide 20 MG/2 ML VIAL ONE (17:39)
[2019-11-27 18:51] LABS: Bacteria/HPF 3+ HPF (None Seen); Bilirubin Negative (Negative); Blood, Urine 1+ (Negative); Clarity Turbid (Clear); Glucose, Urine (Dipstick) Normal (Negative); Leukocyte Negative Leu/uL (Negative); Nitrite Negative (Negative); Protein, Urine (Dipstick) 30 mg/dL (Neg-Trace); RBC/HPF 0-3 HPF (0-3); Squamous Epithelial None Seen HPF (0-3); Urobilinogen Normal mg/dL (Less than 2); WBC/HPF 0-3 HPF (0-3)
[2019-11-27 18:54] LABS: Troponin I 0.043 ng/mL (< 0.028)
[2019-11-27] MEDS ORDERED: Acetaminophen 650 MG Suppository PR PRN (20:02)
[2019-11-27] MEDS ORDERED: Acetaminophen 325 MG TAB PO PRN (20:02)
[2019-11-27 21:07] VITALS: BMI 17.9
--- NOTE | 2019-11-27 22:07 | HP ---
TIME OF ASSESSMENT: 1900 hours. PRIMARY CARE PHYSICIAN: Dr. Lopez. CHIEF COMPLAINT: Fall after "tripping on my ankles." HISTORY OF PRESENT ILLNESS: Ms. Beasley is a 74-year-old woman, who presented to the Emergency Department today after having what she claims was a mechanical fall while at home. She states she has stood up from bed and went to walk and had tripped on her ankle causing her to fall. She sustained an injury to the left side of her forehead and has a laceration. The wound is no longer bleeding. She states she did not experience any preceding lightheadedness, dizziness, or weakness. Denies having any chest pain. Reports having shortness of breath at baseline and does require continuous O2 at home without any changes in her breathing from baseline. She did not lose any consciousness. Did not report having discomfort to the left side of her rib cage, but otherwise, denies any other musculoskeletal injuries associated with the fall. She has continued to feel well since then and denies having any headaches or dizziness. She has not had any issues with her stools. Denies any diarrhea or constipation. Denies any urinary symptoms. The patient lives with a roommate and states she does use a cane at home to help with her mobility. The patient overall feels well and denies any complaints at present. ED COURSE: Per ED notes, EMS reported the patient was saturating 98% on 3 L of O2. EKG done showed a paced rhythm. Blood pressure was 151/73 after one spray of nitroglycerin. She has had an EKG repeated in the Emergency Department here showing heart rate of 89, again a paced rhythm noted. Laboratory studies done demonstrated an indeterminate troponin of 0.034. CK-MB of 7.7. Magnesium was low at 1.3 and potassium was low at 3.1. Electrolyte replacement was ordered. She had a BNP done, which was elevated at 1209.3. The patient with a known history of CHF. Chest x-ray showed cardiomegaly without evidence of acute cardiopulmonary disease. Her white count was unremarkable. Hemoglobin 10.4, hematocrit 34.4, and platelets 248. Glucose was 117. She did have a CT of the head done, which showed no evidence of acute intracranial process. Urinalysis was also done showing turbid appearing urine with 30 of protein, 1+ blood, 3+ bacteria, and 4 to 6 hyaline casts. Negative for nitrites and negative leukocytes. She was given furosemide 20 mg IV as well as 1000 mg of Tylenol for the mild aches associated with the fall and then Nitro-Bid transdermal 1 inch due to an elevated blood pressure of 198/123. On arrival to the floor, the patient's blood pressure is much improved to 114/62. PAST MEDICAL HISTORY: 1. CHF. 2. Atrial fibrillation. 3. Hyperlipidemia. 4. Hypertension. 5. COPD, on home O2. 6. History of CVA in 2009. 7. GERD. 8. Left carotid stenosis. 9. Anxiety. PAST SURGICAL HISTORY: 1. Pacemaker placement. 2. Left carotid endarterectomy. 3. Bladder surgery. 4. Tonsillectomy. 5. Adenoidectomy. SOCIAL HISTORY: The patient is a former smoker. She quit smoking in March 2019. She states she lives with a roommate. Denies any alcohol consumption or illicit drug use. ALLERGIES: NO KNOWN DRUG ALLERGIES. CURRENT MEDICATIONS: 1. Zoloft. 2. Insulin. 3. Pravastatin. 4. DuoNebs. 5. Aspirin. 6. Magnesium. 7. Lasix. 8. Potassium. 9. Eliquis. 10. Advair. 11. Dulera. 12. Prednisone. 13. Tylenol 3. PHYSICAL EXAMINATION: GENERAL: The patient appears thin, frail, but in no acute distress. VITAL SIGNS: Temperature 98.2, pulse 82, respirations 16, O2 saturation 93% on 3 L by nasal cannula, and blood pressure 114/62. HEENT: Normocephalic and atraumatic. Pupils are equal, round, and reactive to light. Sclerae icterus. Oropharynx is clear. NECK: Supple. LUNGS: Clear to auscultation bilaterally without wheezes, rales, or rhonchi. CARDIAC: Regular rate and rhythm. ABDOMEN: Soft, nontender, and nondistended with bowel sounds present. No guarding or rigidity. No renal angle tenderness. EXTREMITIES: No lower leg swelling or edema. Peripheral pulses equal and strong bilaterally. NEUROLOGIC: Alert and oriented x3. Speech sounds slightly slurred, but due to the patient having her dentures in. She has no evidence of expressive aphasia or confusion. Power is 5/5 in all limbs. Sensation intact. Extraocular movements intact. Facial movements and facial sensation intact. Able to follow commands. SKIN: Warm and dry. INVESTIGATIONS: As mentioned above in HPI. IMPRESSION AND PLAN: Ms. Beasley is a pleasant 74-year-old woman, who presents after what she claims was a mechanical fall. Denies having any preceding symptoms and states she tripped over her ankles. She is being admitted for management of the following. 1. Head injury. The patient is on anticoagulation at home for chronic atrial fibrillation. CT head unremarkable. We will hold anticoagulation for the next 24 hours and she will be monitored overnight. 2. Possible presyncope/syncope. We will continue cardiac monitoring. We will continue to trend troponins. We will obtain an echo. The patient with a history of carotid stenosis, status post carotid endarterectomy in the past. We will repeat a carotid Doppler ultrasound. The patient currently with sats of 93% despite 3 L by nasal cannula. Consider to monitor O2. She is not tachycardic without any complaints of chest pain and no hemoptysis. We will consider CT angiogram of the chest to rule out pulmonary embolism. We will first obtain bilateral lower extremity venous Dopplers. We will add a CK. 3. Electrolyte disturbances. The patient with hypomagnesemia and hypokalemia. Replacement ordered in the ED. We will continue to monitor electrolytes and replace as needed. 4. Chronic obstructive pulmonary disease. Continue O2 and resume home medications once verified. 5. Congestive heart failure. The patient given a dose of Lasix in the ED. No evidence of edema or fluid overload at present, however, BNP was elevated. Continue to monitor. 6. Hypertension. Blood pressure much improved from readings in the ED. We will hold any further antihypertensives this evening, the patient's BP is on the lower side now. 7. Anxiety. We will resume Zoloft, which she takes at home. 8. Code status, full. Surrogate decision maker is Colleen, her sister, phone . Job ID: [id number]
[2019-11-27 22:12] LABS: CK (CPK) 151 U/L (29-168); Magnesium 1.9 mg/dL (1.6-2.6); Potassium 3.9 mmol/L (3.5-5.1)
[2019-11-27 23:32] LABS: CKMB 7.1 ng/mL (0-6.6)
[2019-11-28 04:33] LABS: #Lymphocytes 0.6 thou/uL (1.20-3.40); #Monocytes 1.2 thou/uL (0.11-0.59); #Neutrophils 9.3 thou/uL (1.40-6.50); %Basophils 0.2 % (0.0-1.0); %Eosinophils 0.1 % (0.0-10.0); %Lymphocytes 5.5 % (21.0-51.0); %Monocytes 10.9 % (0.0-10.0); %Neutrophils 83.4 % (42.0-75.0); Hemoglobin 10.4 g/dL (12.0-16.0); Mean Corpuscular HGB CONC 31.2 g/dL (32.0-36.0); Mean Corpuscular Hemoglobin 29.4 pg (27.0-31.0); Mean Corpuscular Volume 94.4 fL (78.0-98.0); Mean Platelet Volume 8.1 fL (7.4-10.4); Platelet Count 246 thou/uL (130-400); RBC Distribution Width 15.5 % (11.5-14.5); Red Blood Cell (RBC) Count 3.54 mill/uL (4.20-5.40); White Blood Cell (WBC) Count 11.1 thou/uL (4.8-10.8)
[2019-11-28 05:17] LABS: BUN (Urea Nitrogen) 14 mg/dL (9.8-20.1); Calc. Creatinine Clearance 38 mL/min (70-130); Calcium 9.4 mg/dL (7.8-10.44); Estimated GFR-MDRD 59; Glucose 132 mg/dL (83-110)
[2019-11-28 05:27] LABS: Anion Gap 18 mmol/L (10-20); Carbon Dioxide 37 mmol/L (23-31); Chloride 87 mmol/L (98-107); Potassium 3.9 mmol/L (3.5-5.1); Sodium 138 mmol/L (136-145)
--- NOTE | 2019-11-28 07:57 | ULT ---
BILATERAL CAROTID DUPLEX ULTRASOUND: HISTORY: Syncope TECHNIQUE: Grayscale, color-flow and spectral Doppler ultrasound imaging of the extracranial carotid artery syst ems and vertebral arteries was performed bilaterally. FINDINGS: There is moderate atherosclerotic irregularity involving the right carotid bulb and proximal right in ternal carotid artery. There is mild atherosclerotic irregularity involving the left carotid bulb. The peak systolic velocity in the right ICA measures 84.1 cm/s. The peak systolic velocity in the ri ght CCA measures 67.7 cm/s. The peak systolic velocity in the left ICA measures 103.5 cm/s. The peak systolic velocity in the left CCA measures 49.6 cm/s. The right IC/CC ratio is1.46. The left IC/CC ratio is 2.09. Vertebral flow: antegrade, bilaterally. . IMPRESSION: No hemodynamically significant stenosis of Both ICAs.
[2019-11-28] MEDS ORDERED: MELATONIN PO PRN (08:35)
[2019-11-28] MEDS ORDERED: Furosemide 40 MG/4 ML VIAL SLOW IVP SCH (08:45)
[2019-11-28] MEDS ORDERED: Melatonin 3 MG TAB PO PRN (08:52)
[2019-11-28] MEDS ORDERED: Apixaban 5 MG TAB PO SCH (09:00)
[2019-11-28] MEDS ORDERED: Non-Formulary Item 1 EACH (Umeclidinium Bromide [Incruse Ellipta] 1 INH) IH SCH (09:00)
[2019-11-28] MEDS ORDERED: MULTIVITAMIN WITH IRON PO SCH (09:00)
[2019-11-28] MEDS ORDERED: Non-Formulary Item 1 EACH (Fluticasone/Salmeterol [Advair Diskus 100/50] 1 INH) IH SCH (09:00)
[2019-11-28] MEDS: Aspirin 81 mg Enteric Coated Tablet PO SCH (09:25)
[2019-11-28] MEDS: Multivit, Therapeutic 1 TAB PO SCH (09:25)
[2019-11-28] MEDS: Digoxin 0.125 MG TAB PO SCH (09:25)
[2019-11-28] MEDS: Apixaban 2.5 MG TAB PO SCH ×2 (09:26→20:28)
[2019-11-28] MEDS: Magnesium Oxide 400 MG TAB PO SCH ×2 (09:26→20:28)
[2019-11-28] MEDS ORDERED: Bupivacaine 0.25% HCL 30 ML VIAL ONE (09:35)
--- NOTE | 2019-11-28 09:41 | ULT ---
BILATERAL LOWER EXTREMITY VENOUS DUPLEX EXAM: HISTORY: Bilateral lower extremity vein swelling. FINDINGS: Real-time color Doppler evaluation of the right and left lower extremity was performed from groin to calf. This includes evaluation of the common femoral, superficial and profunda femoral, saphenous, p opliteal, and posterior tibial veins. This shows patent deep venous systems bilaterally with normal compressibility and augmentation. Along the medial side of the right knee is a fluid collection, probably a Rosenberg's-type cyst. IMPRESSION: No evidence of deep vein thrombosis of either lower extremity. POS: [facility]
[2019-11-28 10:55] LABS: Digoxin 0.84 ng/mL (0.8-2.0)
[2019-11-28] MEDS: Mometasone 100 MCG/Formoterol 5 MCG 120 PUFF INHALER INH SCH (18:55)
--- NOTE | 2019-11-28 20:33 | PDOC.HOSPP ---
- Subjective Encounter Date: 11/28/19 Encounter Time: 09:45 Subjective: pt up in bed no complains - Objective Vital Signs & Weight: Vital Signs (12 hours) Temp Pulse Pulse Resp BP BP BP 11/28/19 19:21 98.1 F 81 16 150/72 H 11/28/19 18:55 11/28/19 18:39 11/28/19 18:37 11/28/19 15:40 98.2 F 80 18 167/79 H 11/28/19 13:39 95 16 11/28/19 12:56 97.7 F 79 18 186/94 H 11/28/19 10:24 81 210/95 H 11/28/19 09:24 80 161/98 H Pulse Ox 11/28/19 19:21 94 L 11/28/19 18:55 95 11/28/19 18:39 95 11/28/19 18:37 95 11/28/19 15:40 93 L 11/28/19 13:39 11/28/19 12:56 100 11/28/19 10:24 11/28/19 09:24 Weight Admit Weight 98 lb 3.2 oz Weight 98 lb 3.2 oz I&O: 11/27/19 11/28/19 11/29/19 06:59 06:59 06:59 Intake Total 480 480 Balance 480 480 Result Diagrams: 11/28/19 04:13 11/28/19 04:13 Hospitalist ROS - Review of Systems Cardiovascular: denies: chest pain, palpitations, orthopnea, paroxysmal noc. dyspnea, edema, light headedness, other Gastrointestinal: denies: nausea, vomiting, abdominal pain, diarrhea, constipation, melena, hematochezia, other Genitourinary: denies: dysuria, frequency, incontinence, hematuria, retention, other - Medication Medications: Active Medications Generic Name Dose Route Start Last Admin Trade Name Freq PRN Reason Stop Dose Admin Albuterol/Ipratropium 3 ml 11/28/19 13:00 11/28/19 18:37 Duoneb NEB 3 ml [id number] JOLIE Administration Apixaban 2.5 mg 11/28/19 09:00 11/28/19 20:28 Eliquis PO 2.5 mg BID JOLIE Administration Aspirin 81 mg 11/28/19 09:00 11/28/19 09:25 Ecotrin PO 81 mg DAILY JOLIE Administration Atorvastatin Calcium 10 mg 11/28/19 21:00 11/28/19 20:28 Lipitor PO 10 mg HS JOLIE Administration Digoxin 0.125 mg 11/28/19 09:00 11/28/19 09:25 Lanoxin PO 0.125 mg DAILY JOLIE Administration Diltiazem HCl 240 mg 11/28/19 09:00 11/28/19 09:24 Cardizem Cd PO 240 mg DAILY JOLIE Administration Magnesium Oxide 400 mg 11/28/19 09:00 11/28/19 20:28 Magnesium Oxide PO 400 mg BID JOLIE Administration Mometasone Furoate/Formoterol Fumar 2 puff 11/28/19 18:30 11/28/19 18:55 Dulera 100 Mcg/5 Mcg Inhaler INH 2 puff BID-RT JOLIE Administration Multivitamins 1 tab 11/28/19 09:00 11/28/19 09:25 Theragran PO 1 tab DAILY JOLIE Administration Sertraline HCl 150 mg 11/28/19 09:00 11/28/19 09:25 Zoloft PO 150 mg DAILY JOLIE Administration - Exam Neck: negative: supple, symmetric, no JVD, no thyromegaly, no lymphadenopathy, no carotid bruit, JVD Heart: negative: RRR, no murmur, no gallops, no rubs, normal peripheral pulses, irregular, diminshed peripheral pulses, murmur present, II/IV, III/IV Respiratory: wheezes Gastrointestinal: negative: soft, non-tender, non-distended, normal bowel sounds , no palpable masses, no hepatomegaly, no splenomegaly, no bruit, no guarding, no rigidity, tender to palpation, distended, diminished bowl sounds, voluntary guarding Hosp A/P (1) Chronic anemia Code(s): D64.9 - ANEMIA, UNSPECIFIED Status: Acute (2) Atrial fibrillation Code(s): I48.91 - UNSPECIFIED ATRIAL FIBRILLATION Status: Chronic (3) HLD (hyperlipidemia) Code(s): E78.5 - HYPERLIPIDEMIA, UNSPECIFIED Status: Chronic (4) HTN (hypertension) Code(s): I10 - ESSENTIAL (PRIMARY) HYPERTENSION Status: Chronic (5) Acute on chronic diastolic (congestive) heart failure Code(s): I50.33 - ACUTE ON CHRONIC DIASTOLIC (CONGESTIVE) HEART FAILURE Status : Acute (6) COPD (chronic obstructive pulmonary disease) Status: Chronic - Plan will give pt lasix iv. pt is on chronic oxygen. she is welling to go to inpatient rehab. will discharge once approved. will check vit b12. will schedule duonebs. echo pending. carotid doppler and dopplers negative.
[2019-11-28] MEDS ORDERED: Atorvastatin Calcium 10 MG TAB PO SCH (21:00)
[2019-11-28] MEDS ORDERED: Pravastatin Sodium 20 MG TAB PO SCH (21:00)
[2019-11-29] MEDS: Mometasone 100 MCG/Formoterol 5 MCG 120 PUFF INHALER INH SCH (07:15)
--- NOTE | 2019-11-29 07:16 | PDOC.HOSPP ---
- Subjective Encounter Date: 11/29/19 Encounter Time: 08:50 Subjective: Patient reports soreness around left jaw and pain with trying to close it on that side. Hit when fell before admit, bruising on that side below mandible. No other complaints. Ready to go to rehab. - Objective Vital Signs & Weight: Vital Signs (12 hours) Temp Pulse Resp BP Pulse Ox 11/29/19 03:05 97.5 F L 96 16 176/106 H 94 L 11/28/19 23:24 20 94 L 11/28/19 19:21 98.1 F 81 16 150/72 H 94 L Weight Admit Weight 98 lb 3.2 oz Weight 98 lb 3.2 oz I&O: 11/28/19 11/29/19 11/30/19 06:59 06:59 06:59 Intake Total 480 960 Balance 480 960 Result Diagrams: 11/29/19 09:09 11/29/19 09:09 Hospitalist ROS - Review of Systems Constitutional: denies: fever, chills Respiratory: denies: cough, shortness of breath Cardiovascular: denies: chest pain, palpitations Gastrointestinal: denies: nausea, vomiting, abdominal pain Neurological: reports: weakness. denies: change in speech, confusion - Medication Medications: Active Medications Generic Name Dose Route Start Last Admin Trade Name Leleq PRN Reason Stop Dose Admin Albuterol/Ipratropium 3 ml 11/28/19 13:00 11/28/19 23:24 Duoneb NEB 3 ml [id number] JOLIE Administration Apixaban 2.5 mg 11/28/19 09:00 11/28/19 20:28 Eliquis PO 2.5 mg BID JOLIE Administration Aspirin 81 mg 11/28/19 09:00 11/28/19 09:25 Ecotrin PO 81 mg DAILY JOLIE Administration Atorvastatin Calcium 10 mg 11/28/19 21:00 11/28/19 20:28 Lipitor PO 10 mg HS JOLIE Administration Digoxin 0.125 mg 11/28/19 09:00 11/28/19 09:25 Lanoxin PO 0.125 mg DAILY JOLIE Administration Diltiazem HCl 240 mg 11/28/19 09:00 11/28/19 09:24 Cardizem Cd PO 240 mg DAILY JOLIE Administration Magnesium Oxide 400 mg 11/28/19 09:00 11/28/19 20:28 Magnesium Oxide PO 400 mg BID JOLIE Administration Mometasone Furoate/Formoterol Fumar 2 puff 11/28/19 18:30 11/28/19 18:55 Dulera 100 Mcg/5 Mcg Inhaler INH 2 puff BID-RT JOLIE Administration Multivitamins 1 tab 11/28/19 09:00 11/28/19 09:25 Theragran PO 1 tab DAILY JOLIE Administration Sertraline HCl 150 mg 11/28/19 09:00 11/28/19 09:25 Zoloft PO 150 mg DAILY JOLIE Administration - Exam General Appearance: NAD, awake alert ENT: moist mucosa ENT - other findings: bruising below left mandible, TTP entire left jaw, proper articu and moveme Neck: supple Heart: RRR, no murmur, no gallops, no rubs Respiratory: CTAB, no wheezes, no rales, no ronchi Gastrointestinal: soft, non-tender, non-distended, normal bowel sounds Psychiatric: normal affect, normal behavior Hosp A/P (1) Head injury Code(s): S09.90XA - UNSPECIFIED INJURY OF HEAD, INITIAL ENCOUNTER Status: Acute (2) Fall Code(s): W19.XXXA - UNSPECIFIED FALL, INITIAL ENCOUNTER Status: Acute (3) Chronic diastolic (congestive) heart failure Code(s): I50.32 - CHRONIC DIASTOLIC (CONGESTIVE) HEART FAILURE Status: Chronic (4) Chronic anemia Code(s): D64.9 - ANEMIA, UNSPECIFIED Status: Chronic (5) Atrial fibrillation Code(s): I48.91 - UNSPECIFIED ATRIAL FIBRILLATION Status: Chronic (6) HLD (hyperlipidemia) Code(s): E78.5 - HYPERLIPIDEMIA, UNSPECIFIED Status: Chronic (7) HTN (hypertension) Code(s): I10 - ESSENTIAL (PRIMARY) HYPERTENSION Status: Chronic (8) History of CVA (cerebrovascular accident) Code(s): Z86.73 - PRSNL HX OF TIA (TIA), AND CEREB INFRC W/O RESID DEFICITS Status: Chronic (9) COPD (chronic obstructive pulmonary disease) Status: Chronic - Plan Awaiting Rehab placement
[2019-11-29 07:44] VITALS: TEMP 98.2
[2019-11-29] MEDS ORDERED: Furosemide 40 MG/4 ML VIAL SLOW IVP SCH (09:00)
[2019-11-29] MEDS: Aspirin 81 mg Enteric Coated Tablet PO SCH (09:09)
[2019-11-29] MEDS: Apixaban 2.5 MG TAB PO SCH (09:09)
[2019-11-29] MEDS: Digoxin 0.125 MG TAB PO SCH (09:09)
[2019-11-29] MEDS: Magnesium Oxide 400 MG TAB PO SCH (09:10)
[2019-11-29] MEDS: Multivit, Therapeutic 1 TAB PO SCH (09:10)
[2019-11-29 09:24] LABS: Hemoglobin 10.8 g/dL (12.0-16.0); Platelet Count 264 thou/uL (130-400)
--- NOTE | 2019-11-29 10:06 | CT ---
Exam: Facial bone CT HISTORY: Fall. Pain. Possible left mandible fracture COMPARISON: None FINDINGS: Visualized brain parenchyma has appropriate attenuation. Bilateral ocular lenses are appropriately located. Both globes are intact. Retrobulbar bar fat is pre served. Symmetric attenuation of the optic nerves and ocular rectus muscles. Visualized aerodigestive tract is patent. There is medial deviation of the right carotid artery. Prev ious left carotid endarterectomy is partially evaluated. Upper cervical spine is intact. Zygomatic arches are intact. The osseous margins of the sinuses and orbits are maintained. Coronal images demonstrate patent bilateral ostiomeatal complexes. Intact nasal septum. The maxillary ridge is intact. Mandible is also intact. Mild induration of the left facial soft tissues overlying the left parotid gland and left mandible. IMPRESSION: No fracture.
[2019-11-29 12:03] VITALS: BP 145/80
--- NOTE | 2019-11-30 01:36 | DIS ---
DATE OF ADMISSION: 11/27/2019 DATE OF DISCHARGE: 11/29/2019 PRIMARY CARE PHYSICIAN: Kaitlyn Lopez MD REASON FOR ADMISSION: Fall with head injury, on Eliquis. DIAGNOSES AT DISCHARGE: 1. Closed head injury without bleeding. 2. Chronic diastolic congestive heart failure. 3. Chronic hypoxic respiratory failure, on home oxygen. 4. Chronic anemia. 5. Atrial fibrillation, on chronic anticoagulation. 6. Hyperlipidemia. 7. Hypertension. 8. History of cerebrovascular accident. 9. Chronic obstructive pulmonary disease. PROCEDURES PERFORMED: 1. CT of the brain without contrast showing no evidence for acute intracranial abnormality. 2. Carotid Doppler ultrasound showing no hemodynamically significant stenosis of the internal carotid arteries. 3. Facial bone CT showing no evidence for mandibular fracture or other facial bone fracture. CONSULTATIONS: None. SUMMARY OF HOSPITAL COURSE: This is a 74-year-old female with a history of congestive heart failure, COPD and on home oxygen. She reported a mechanical fall after tripping over her ankle, sustaining blow to the left side of her face, pain over her left jaw and to her left eye with a laceration. Resolution of bleeding was managed in the emergency room. She was on Eliquis. She had a CT scan of the head done which was normal and she was observed in the hospital. The patient did have a couple of episodes of desatting on her home oxygen and had to have the oxygen turned up to 5 L temporarily but then always turned back down. She had no symptoms from these episodes and always happened when she was sleeping or taking a nap. The patient reported that she did not feel strong enough to go back home after workup was done to assure no acute processes going on and so rehab placement was arranged and she is being discharged to rehab currently. While she was in the hospital, she was given IV Lasix daily to help with her volume status though she was not noted to be in any significant congestive heart failure exacerbation. DISCHARGE MANAGEMENT: Discharged to inpatient rehab. ACTIVITY: As tolerated. DIET: Healthy heart diet with Ensure Enlive three times a day. THERAPY: Occupational, physical and speech therapy. EQUIPMENT: Oxygen as needed to keep O2 sats up. DISCHARGE MEDICATIONS: 1. Acetaminophen as needed. 2. Eliquis 2.5 mg twice a day. 3. Aspirin 81 mg daily. 4. Digoxin 0.125 mg daily. 5. Diltiazem CD 240 mg daily. 6. Advair Diskus 100/50 one inhalation twice a day. 7. DuoNeb as needed. 8. Magnesium oxide 400 mg twice a day. 9. Melatonin extended release one tablet at night as needed. 10. Multivitamin daily. 11. Pravastatin 40 mg at night. 12. Sertraline 150 mg at night. 13. Albuterol inhaler as needed. 14. Incruse Ellipta one inhalation daily. 15. Ventolin as needed. FOLLOWUP: The patient is to follow up with Dr. Morataya in rehab and with Dr. Lopez after discharge. Job ID: [id number] [facility]
--- NOTE | 2019-12-02 17:29 | EKG ---
Test Reason : Blood Pressure : / mmHG Vent. Rate : 089 BPM Atrial Rate : 069 BPM P-R Int : 000 ms QRS Dur : 138 ms QT Int : 378 ms P-R-T Axes : 000 053 134 degrees QTc Int : 459 ms Demand pacemaker; interpretation is based on intrinsic rhythm Sinus rhythm with marked sinus arrhythmia with 1st degree A-V block with Fusion complexes Non-specific intra-ventricular conduction block T wave abnormality, consider inferolateral ischemia Abnormal ECG Confirmed by RENE Anderson, NABILA ([id number]), editor farm journal QASIM CASEY ([id number]) on 12/02/2019 5:28:42 PM Referred By: Confirmed By:NABILA LÓPEZ M.D.
== END 2019-11-29 14:15 ==
LOC: ERS 14:30 → 2NO 17:15
PROVIDERS: ADMIT Internal Medicine; ATTEND Internal Medicine
DX: S09.90XA Unspecified injury of head, initial encounter (principal); I11.0 Hypertensive heart disease with heart failure; I50.33 Acute on chronic diastolic (congestive) heart failure; J96.11 Chronic respiratory failure with hypoxia; I48.20 Chronic atrial fibrillation, unspecified; D64.9 Anemia, unspecified; E78.5 Hyperlipidemia, unspecified; J44.9 Chronic obstructive pulmonary disease, unspecified; F41.9 Anxiety disorder, unspecified; Z79.01 Long term (current) use of anticoagulants; Z79.4 Long term (current) use of insulin; Z79.82 Long term (current) use of aspirin; Z79.899 Other long term (current) drug therapy; Z86.73 Personal history of transient ischemic attack (TIA), and cerebral infarction without residual deficits; Z87.891 Personal history of nicotine dependence; Z95.0 Presence of cardiac pacemaker; W01.0XXA Fall on same level from slipping, tripping and stumbling without subsequent striking against object, initial encounter; Y92.003 Bedroom of unspecified non-institutional (private) residence as the place of occurrence of the external cause
CPT/HCPCS: 36415; 70450; 70486; 71045; 80048; 80053; 80162; 81003; 81015; 82550; 82553; 82565; 83735; 83880; 84484; 85014; 85018; 85025; 85049; 93005; 93306; 93880; 93970; 94640; 94664; 96365; 96367; 96375; 96376; G0378; J1940; J3475; J3480; J7050; J7620; S0020

== ENCOUNTER 2019-12-04 14:00 | Inpatient (IN) | payer MEDICARE, MEDICAID ==
[~2019-12-04 14:00] MED LIST changes: -DOPamine 400 MG/D5W 250 ML 250 ML ONE; -Fentanyl 100 MCG/2 ML VIAL ONE; -Heparin (Artline) 500 ML ONE; -Heparin 10,000 UNITS/1 ML VIAL ONE; -Midazolam HCl 2 mg/2 ml Vial ONE; +PHENYLEPHRINE-NS 100 MCG/ML 10 ML SYRINGE ONE; -PROPOFOL 200 MG/20 ML VIAL ONE; -Propofol 1,000 MG/100 ML VIAL IV ONE; +Rocuronium Bromide 10 MG/ML (10ML VIAL) ONE; +Succinylcholine Chloride 20 MG/ML 10 ml SYRINGE FS ONE
[2019-12-04] MEDS ORDERED: niCARdipine 20MG In NaCl 20 MG/200 ML BAG ONE (14:16)
[2019-12-04 14:44] LABS: #Eosinphils 0.1 thou/uL (0.0-0.7); #Lymphocytes 1.1 thou/uL (1.20-3.40); #Monocytes 2.2 thou/uL (0.11-0.59); #Neutrophils 14.8 thou/uL (1.40-6.50); %Basophils 0.1 % (0.0-1.0); %Eosinophils 0.4 % (0.0-10.0); %Lymphocytes 5.8 % (21.0-51.0); %Monocytes 12.3 % (0.0-10.0); %Neutrophils 81.5 % (42.0-75.0); Hemoglobin 13.1 g/dL (12.0-16.0); Mean Corpuscular HGB CONC 30.5 g/dL (32.0-36.0); Mean Corpuscular Hemoglobin 29.3 pg (27.0-31.0); Mean Platelet Volume 8.9 fL (7.4-10.4); Platelet Count 351 thou/uL (130-400); RBC Distribution Width 15.3 % (11.5-14.5); Red Blood Cell (RBC) Count 4.47 mill/uL (4.20-5.40); White Blood Cell (WBC) Count 18.2 thou/uL (4.8-10.8)
[2019-12-04] MEDS ORDERED: ADMIXTURE FEE IV SCH ×3 (14:45→23:00)
[2019-12-04] MEDS ORDERED: HUM PROTHROMBIN CPLX IV SCH ×3 (14:45→23:00)
[2019-12-04] MEDS ORDERED: [UNRECOGNIZED DRUG - OTHER] IV SCH ×3 (14:45→23:00)
[2019-12-04] MEDS ORDERED: Fentanyl 100 MCG/2 ML VIAL ONE (14:54)
[2019-12-04 14:59] LABS: ALT (SGPT) 37 U/L (8-55); AST (SGOT) 53 U/L (5-34); Albumin 4.3 g/dL (3.4-4.8); Alkaline Phosphatase 105 U/L (40-110); BUN (Urea Nitrogen) 41 mg/dL (9.8-20.1); Calc. Creatinine Clearance 0 mL/min (70-130); Calcium 11.1 mg/dL (7.8-10.44); Estimated GFR-MDRD 52; Globulin 3.7 g/dL (2.4-3.5); Glucose 150 mg/dL (83-110)
[2019-12-04] MEDS ORDERED: Ondansetron PF 4 MG/2 ML Vial IVP PRN (15:00)
[2019-12-04] MEDS ORDERED: Mag-Al 1200 mg/1200 mg/30 ML UDCUP PO PRN (15:00)
[2019-12-04] MEDS ORDERED: Sodium Chloride 0.9% 1,000 ML IV SCH (15:00)
[2019-12-04] MEDS ORDERED: Docusate 100 MG CAP PO PRN (15:00)
[2019-12-04] MEDS ORDERED: Labetalol HCl 100 MG/20 ML VIAL SLOW IVP PRN (15:00)
[2019-12-04] MEDS ORDERED: diphenhydrAMINE 50 MG/ML VIAL IVP PRN (15:00)
[2019-12-04] MEDS ORDERED: Fentanyl 100 MCG/2 ML VIAL SLOW IVP PRN ×2 (15:02→15:03)
[2019-12-04 15:08] LABS: Anion Gap 21 mmol/L (10-20); Potassium 3.7 mmol/L (3.5-5.1); Sodium 137 mmol/L (136-145)
[2019-12-04 15:12] LABS: Carbon Dioxide 47 mmol/L (23-31); Chloride 73 mmol/L (98-107)
[2019-12-04 15:14] LABS: Bilirubin Negative (Negative); Blood, Urine Negative (Negative); Clarity Clear (Clear); Glucose, Urine (Dipstick) Normal (Negative); Ketone, Urine Negative (Negative); Leukocyte Negative Leu/uL (Negative); Nitrite Negative (Negative); Protein, Urine (Dipstick) Negative (Neg-Trace); Specific Gravity, Urine 1.009 (1.002-1.036); Urobilinogen Normal mg/dL (Less than 2)
[2019-12-04] MEDS ORDERED: Sodium Chloride 0.9% (PF) 10 ML VIAL FS PRN (15:17)
[2019-12-04 15:32] LABS: CKMB 3.5 ng/mL (0-6.6)
[2019-12-04] MEDS ORDERED: niCARdipine 40MG In NaCl 40 MG/200 ML BAG IVPB SCH (16:00)
[2019-12-04] MEDS ORDERED: niCARdipine 25 MG in Sodium Chloride 0.9% 250 ML 240 ML IVPB SCH (16:15)
[2019-12-04] MEDS: Sodium Chloride 0.9% 1,000 ML IV SCH ×2 (16:50→22:58)
--- NOTE | 2019-12-04 17:21 | HP ---
HISTORY OF PRESENT ILLNESS: Ms. Beasley is a 74-year-old woman with previous history of paroxysmal atrial fibrillation and status post cerebrovascular accident with residual right hemiparesis. The patient was recently admitted following mechanical fall on 11/27/2019. CT scan of the brain was obtained at that time, which revealed no acute intracranial hemorrhage. The patient was subsequently discharged to inpatient rehabilitation on 11/29/2019. The patient was brought to the emergency department today after being discovered on the floor following an unwitnessed fall. Neurological examination was reportedly at baseline. At the time of my evaluation, the patient is awake with a Radha Coma Scale of E(4), V(3 to 4) and M(6). She clearly has dysarthria, which was present since the last cerebrovascular accident in 2009. PAST MEDICAL HISTORY: Significant for paroxysmal atrial fibrillation, status post cerebrovascular accident in 2009 with residual right hemiparesis and chronic dysarthria. I am unsure of any dysphagia. Other pertinent past medical history includes chronic congestive heart failure, essential hypertension, COPD on home oxygen at 4 L by nasal cannula oxygen. She has a history of gastroesophageal reflux disease, carotid artery disease, chronic anxiety disorder, and hyperlipidemia. PAST SURGICAL HISTORY: Pertinent for childhood adenoidectomy and tonsillectomy, pacemaker implantation, left carotid endarterectomy, and bladder surgery. SOCIAL HISTORY: She is a long-term smoker of over 40 pack years, although she has not smoked since 2019. She has no ethanol or illicit drug abuse history. FAMILY HISTORY: Noncontributory for this patient's age. PREHOSPITALIZATION MEDICATIONS: Includes, 1. Acetaminophen 650 mg p.o. q.4 hours. 2. Eliquis 2.5 mg p.o. b.i.d. 3. Proventil 1 puff p.r.n. 4. Aspirin 81 mg p.o. daily. 5. Digoxin 0.125 mg p.o. daily. 6. Diltiazem 240 mg p.o. daily. 7. Advair Diskus 100/50 one inhalation b.i.d. 8. Furosemide 40 mg IV daily. 9. Ibuprofen 400 mg p.o. b.i.d. p.r.n. 10. DuoNeb q.6 hours p.r.n. 11. Multivitamins 1 p.o. daily. 12. Pravastatin 40 mg p.o. at bedtime. 13. Zoloft 150 mg p.o. daily. 14. Melatonin 10 mg p.o. at bedtime p.r.n. ALLERGIES: THE PATIENT HAS NO KNOWN DRUG ALLERGIES. REVIEW OF SYSTEMS: 10-point review of systems essentially unremarkable, except as stated in Past Medical History and Chief Complaint. PHYSICAL EXAMINATION: GENERAL: This reveals a 74-year-old cachectic-appearing woman, who weighs 48 kg. She appears to be in no acute distress at time of my evaluation. VITAL SIGNS: Initial vital signs include blood pressure 190/129, pulse 78, respiratory rate 16, temperature 97.5 degrees Fahrenheit, oxygen saturation 91% on 4 L by nasal cannula oxygen. The patient was placed on nicardipine drip and the last blood pressure was noted at 153/70 with a pulse of 85 and respiratory rate of 16. HEENT: Reveals normocephalic and atraumatic. Pupils are equally round and reactive to light and accommodation. NECK: She has no jugular venous distention noted. HEART: Reveals irregular rate and irregular rhythm. LUNGS: Reveals bibasilar rhonchi. Breathing, regular and nonlabored. ABDOMEN: Soft, nontender, nondistended. Liver and spleen nonpalpable below costal margins. EXTREMITIES: 2+ radial and pedal pulses bilaterally. No ankle edema is present. NEUROLOGIC: [place] Coma Scale noted at E(4), V(3 to 4), M(6). She has a relatively right hemiparesis, otherwise no other focal neurologic deficits are evident. MUSCULOSKELETAL: Reveals 5/5 muscle strength in bilateral upper and left lower extremities. Right lower extremity has 4/5 strength. Palpatory examination of the cervical, thoracic, and lumbar spine are unremarkable for any tenderness or bony step-offs. PERTINENT LABORATORY FINDINGS: Today include a CBC with 18,200 white blood cells, hemoglobin and hematocrit are 13.1 and 42.9, respectively. Platelet count is 251,000. Metabolic profile; sodium 137, potassium 3.7, chloride is 73, bicarb is 47, BUN is 41, creatinine is 1.05, glucose is 150, total bilirubin is 1.0. AST and ALT are 53 and 37, respectively. Troponin I is 0.066. BNP is 177.3. IMAGING STUDIES: I have reviewed a brain CT scan, which was obtained today, which reveals large acute and subacute right convexity subdural hematoma with 9 mm [id number] midline shift. IMPRESSION: 1. Status post apparent fall. 2. Acute and subacute right convexity subdural hematoma. 3. Cerebral edema with 9 mm [id number] midline shift. 4. Eliquis-induced coagulopathy. 5. History of paroxysmal atrial fibrillation, rate controlled. 6. History of chronic congestive heart failure, although there is no clinical evidence of active exacerbation at this time. 7. Apparent chronic malnutrition with cachexia. 8. Chronic obstructive pulmonary disease with chronic hypoxemic pulmonary insufficiency. PLAN: 1. Eliquis was reversed with Kcentra to correct coagulopathy. 2. We will trend the troponin to rule out any acute coronary syndrome. 3. It must be noted that the patient had transthoracic echocardiography, which was obtained on 11/29/2019, at which time, it was notable for ejection fraction, which was estimated at 60% to 65% with moderately enlarged right ventricle. 4. The patient has been evaluated by Neurosurgery, who will determine the need for any surgical intervention. 5. Maintenance IV fluid will be started. 6. We will also initiate nonpharmacological VTE prophylaxis. Job ID: [id number]
--- NOTE | 2019-12-04 17:43 | CT ---
CT Brain WO Con History: Precraniotomy evaluation Comparison: CT brain same day Findings: The large right subdural hematoma has enlarged. The largest transverse dimension is now alicia roximately 2.1 cm. The left-right midline shift has progressed from 9 mm-14 mm. Trace intraventricular hemorrhage. Subdural hemorrhage extends along the anterior falx on the right. There is also subdural hemorrhage along the right tentorium and posterior falx. Right parietal scalp hematoma. Early right uncal herniation. There is mass effect upon the dru. Impression: Enlarging right subdural hematoma with progressive subfalcine and uncal herniation. Code: CR. Mojica, nurse taking care of patient, was notified of findings via telephone at 5:38 PM
[2019-12-04 17:59] VITALS: BMI 17.5
[2019-12-04 18:19] LABS: PTT 22.4 sec (22.9-36.1); Prothrombin Time 13.2 sec (12.0-14.7)
[2019-12-04] MEDS ORDERED: Lidocaine 1% w/Epinephrine 1:100K 20 ML VIAL ONE ×2 (18:19→19:10)
[2019-12-04] MEDS ORDERED: Thrombin 5000 UNITS/5 ML VIAL ONE (18:31)
[2019-12-04] MEDS ORDERED: Sodium Chloride 0.9% 10 ML ONE (18:32)
[2019-12-04] MEDS ORDERED: Bacitracin Zinc Ointment 30 gm TUBE ONE (18:44)
[2019-12-04 18:56] LABS: CKMB 3.6 ng/mL (0-6.6)
--- NOTE | 2019-12-04 19:01 | PRG ---
DATE OF SERVICE: 12/04/2019 I personally examined the patient, reviewed imaging and documentation and agreed with the notes of Zeferino Jackson PA-C dated 12/04/2019. Briefly, Sharla Beasley is a 74-year-old woman, who had the second of two falls in the last two weeks today. The first fall brought her to [facility] approximately one week ago. She was transferred to rehab. Her Eliquis was restarted. She fell at the rehab facility and was transferred back to [facility] after the fall. This prompted CT evaluation of the brain, which showed a mixed density subdural hematoma with some local mass effect, but she was wide awake and conversant in the emergency department. Four hours later in the ICU, we repeated the CT head and she became confused and less conversant. The CT head showed increase in density and size of subdural hematoma with more mass effect and more midline shift. Because of the neurological deterioration, they elected to proceed with an attempt at surgical intervention. She has gotten one dose of Kcentra, and another one has been ordered. We will take her to the operating room emergently and attempt a craniotomy to evacuate subdural hematoma and give her a chance to survive. Unfortunately with the Eliquis use, this is going to be very complicated case and likely the subdural hematoma will recur. I am going to talk to the family (the niece and nephew are listed but not answering phones) after the surgery. Job ID: [id number]
[2019-12-04] MEDS ORDERED: Phytonadione 10 MG/ML AMP SC SCH (21:00)
--- NOTE | 2019-12-04 21:26 | OP ---
DATE OF PROCEDURE: 12/04/2019 HAND TACKER: Zeferino Jackson PA-C. PREOPERATIVE INDICATION: Prevent neurological deterioration. PREOPERATIVE DIAGNOSIS: Expanding right-sided subdural hematoma with mass effect and neurological decline, on Eliquis anticoagulation. POSTOPERATIVE DIAGNOSIS: Expanding right-sided subdural hematoma with mass effect and neurological decline, on Eliquis anticoagulation. OPERATIVE PROCEDURES: Large frontotemporoparietal craniotomy, evacuation of subdural hematoma. PREOPERATIVE MEDICATIONS: Kcentra, Ancef 2 g IV. DRAIN NUMBER: 0. DRAIN TYPE: None. DESCRIPTION OF PROCEDURE: The patient was brought to the operating room. General endotracheal anesthesia was induced. The patient was positioned supine with the right shoulder bumped and the head turned to the left. Head was immobilized with Leonardo pin and land department head attached to the operating table with the Leonardo attachment. The hair was removed from the right side of the scalp with electric clippers. We planned out a large craniotomy flap with the question-lainey incision. Under our incision, we infused local anesthetic. The scalp was sterilely prepped and draped. We opened with a 10 blade knife. We controlled bleeding with bipolar and monopolar cautery. We folded a scalp flap forward with monopolar cautery with the temporalis and scalp as 1 unit. We brought a high-speed drill into the field. We placed penny holes at the root of the zygoma, the posterior and inferior parietal area, the parietal boss, the anterior parietal bone just behind the coronal suture, and the frontal keyhole. We stripped the dura with a Orlando 3 dissector under the bone flap. We brought a side-cutting bit and a footplate into the field and fashioned our flap from penny hole to penny hole. We used a blanca drill to drill out the Chiari then we reached under the flap with the Orlando 3 dissector. We dissect the dura as we folded the flap out of the field. There was a very large subdural hematoma evident through the dura. The dura was opened and the subdural hematoma was irrigated carefully off the brain by floating it on irrigation. There were free areas of bleeding. One was a venous structure anteriorly, one was an arterial structure in the temporal side of the sylvian fissure, and then another was a venous structure in the inferior parietal area. All three of these bleeds were easily controlled with gentle bipolar cautery and a pledget of Surgicel. There was some thin rim of occipital clot left, but this was buttressed with a Gel-Foam. This clot in the occipital area did not cause significant mass effect and reaching backwards to evacuate it may have bleeding that we could not coagulate. Slowly, the brain re-expanded during the surgery. The dura was unable to be closed and we left a DuraGen substitute over the craniotomy opening. The skull was reapproximated with plates and screws. We closed the flap in anatomical layers. Before final closure, we infused bacitracin irrigation under the flap to keep some tension and fill all the space with irrigant. We then closed the remaining two sutures. Sterile dressing was applied and head was wrapped. This was a clean case, no contamination. Job ID: [id number]
[2019-12-04 21:37] LABS: Actual Bicarbonate (HCO3a) 45.6 mEq/L (22-28); CO2 Tension 45.5 mmHg (35.0-45.0); Calcium, Ionized (arterial) 1.06 mmol/L (1.12-1.30); Carboxyhemoglobin (COHb) 1.1 gm% (0.0-3.0); O2 Tension (PaO2), arterial 79.3 mmHg (> 70.0); Potassium - ABG Lab 3.06 mmol/L (3.70-5.30)
[2019-12-04 21:48] LABS: ALV-art Gradient 149.025 (0-20); Puncture Site LBR; pH, Arterial 7.62 (7.35-7.45)
[2019-12-04] MEDS ORDERED: Propofol 1,000 MG/100 ML VIAL IV ONE (22:23)
--- NOTE | 2019-12-04 22:30 | CON ---
DATE OF CONSULTATION: 12/04/2019 HISTORY OF PRESENT ILLNESS: Ms. Beasley is a 74-year-old female, who presents to the emergency room from [facility] due to a fall. There is a report that she fell about 2 weeks ago. The patient is taking Eliquis and was stopped on her 1st fall. In the emergency room, on exam noticed a golf ball size hematoma on the top of her skull. CT exam of the head was done and showed a subdural hematoma with mass effect. In the emergency room, I was able to converse with her and have a conversation. Her GCS score was 15. She was moving all extremities fine and had good strength. PAST MEDICAL HISTORY: Congestive heart failure, atrial fibrillation, hyperlipidemia, hypertension, COPD, GERD, left carotid stenosis. SOCIAL HISTORY: The patient is a former tobacco user. The patient quit in March 2019. Lives at home with family. Denies alcohol use or illicit drugs. ALLERGIES: NO KNOWN DRUG ALLERGIES. CURRENT MEDICATIONS: 1. Zoloft. 2. Ventolin. 3. Pravastatin. 4. DuoNeb. 5. Baby aspirin. 6. Magnesium. 7. Lasix. 8. Potassium. 9. Eliquis. 10. Advair. 11. Daliresp. 12. Prednisone. 13. Tylenol with codeine No. 3. REVIEW OF SYSTEMS: CONSTITUTIONAL: Denies fever or chills. ENT: Denies change in vision or hearing. CARDIAC: Denies chest pain, shortness of breath, diaphoresis. PULMONARY: Denies shortness of breath, cough, hemoptysis. GASTROINTESTINAL: Denies abdominal pain, nausea, vomiting, diarrhea, change in stool formation and consistency. : Denies trouble with urination, frequency of urination, bloody urine. SKIN: Reports hematoma of the skull. MUSCULOSKELETAL: As per history of present illness. NEUROLOGIC: As per history of present illness PSYCHOLOGIC: Denies anxiety, depression, or behavior changes. PHYSICAL EXAMINATION: VITAL SIGNS: BP 148/72, pulse 78, respiratory rate 18, temperature 98.6. HEENT: Pupils are equal. Extraocular movements are intact. NECK: Soft, supple. No masses are noted. Range of motion is intact and nonpainful. NEUROLOGIC: Awake, alert, and oriented x3. Memory, attention, fund of knowledge normal. Cranial nerves grossly intact. Upper extremity, she has good strength in the deltoids, biceps, triceps, wrist extensions, finger extensions, finger intrinsics. Lower extremities, she has good strength bilateral in the iliopsoas, quadriceps, hamstrings, anterior tib, EHL, and gastrocnemius. LABORATORY DATA: WBC 18.2, PT 13.2, INR 1.0, PTT 22.4. Sodium 137, platelets 351. IMAGING: CT head subdural hematoma with mass effect. About 4 hours later, I visited Ms. Beasley in the ICU and she started to become more confused and less conversant with me. Today her GCS score was [address] of the head showed increased size of the subdural hematoma and increased mass effect and greater midline shift. Due to the neurological deterioration, we ordered a dose of Kcentra, due to history of patient being on Eliquis. She was later brought to the operating room for an emergent craniotomy to evacuate a subdural hematoma. We will give her fresh frozen plasma and another dose of Kcentra later on tonight at 11 p.m. We will order another CT of the head for 5 a.m. in the morning. Hopefully the craniotomy will give her a chance to survive. Neurosurgery did talk to the niece and nephew. Job ID: [id number]
--- NOTE | 2019-12-04 23:12 | RAD ---
XR Chest 1 View Portable History: Intubated patient. G-tube placement Comparison: Radiograph 11/29/2019 Findings: Numerous leads project over the chest limiting evaluation. Enteric tube tip likely the gale silvestre body although out of field of view. Endotracheal tube tip felt to be at the clavicles. Mild background lung hyperinflation. No pneumothorax. Heart size is normal. Impression: 1. Enteric tube tip likely gastric body. 2. Endotracheal tube tip poorly seen due to numerous overlapping leads of the felt to likely be at th e clavicles. 3. Lung hyperinflation suggesting obstructive pulmonary disease.
[2019-12-04] MEDS ORDERED: Fentanyl BOLUS 250 ML IVPB PRN (23:43)
[2019-12-04] MEDS ORDERED: fentaNYL Citrate/PF 2,000 MCG in Sodium Chloride 0.9% 60 ML IV SCH (23:43)
[2019-12-04] MEDS ORDERED: Propofol BOLUS 1,000 MG/100 ML VIAL IV PRN (23:43)
[2019-12-04] MEDS ORDERED: Propofol 1,000 MG/100 ML VIAL IV PRN (23:43)
[2019-12-04] MEDS ORDERED: Lorazepam 2 MG/ML VIAL SLOW IVP PRN (23:43)
[2019-12-04] MEDS ORDERED: DISCONTINUE PREVIOUS NARCOTIC PAIN MEDICATIONS AND BENZODIAZEPINES FS SCH (23:43)
[2019-12-04] MEDS ORDERED: Morphine 2 MG/ML SYRINGE SLOW IVP PRN (23:43)
[2019-12-04] MEDS ORDERED: Morphine 2 MG/ML VIAL SLOW IVP PRN (23:44)
[2019-12-04] MEDS ORDERED: Ventilator Sedation Protocol 1 EACH FS SCH (23:45)
[2019-12-04] MEDS ORDERED: Calcium Chloride 13.6 MEQ in Sodium Chloride 0.9% 100 ML IVPB SCH (23:59)
[2019-12-05 00:22] LABS: Hemoglobin 10.2 g/dL (12.0-16.0); Mean Corpuscular HGB CONC 30.6 g/dL (32.0-36.0); Mean Corpuscular Hemoglobin 29.3 pg (27.0-31.0); Mean Corpuscular Volume 95.8 fL (78.0-98.0); Mean Platelet Volume 8.4 fL (7.4-10.4); Platelet Count 254 thou/uL (130-400); Red Blood Cell (RBC) Count 3.49 mill/uL (4.20-5.40); White Blood Cell (WBC) Count 20.7 thou/uL (4.8-10.8)
[2019-12-05 00:24] LABS: PTT 26.4 sec (22.9-36.1); Prothrombin Time 13.1 sec (12.0-14.7)
[2019-12-05 00:41] LABS: Band 17 % (5-11); MDiff Complete? YES; Monocytes 4 % (0-10); Neutrophil 78 % (42-75); Platelet Morphology Comment Appears Adequate
[2019-12-05 00:44] LABS: Troponin I 0.106 ng/mL (< 0.028)
[2019-12-05 00:46] LABS: Calcium 9.2 mg/dL (7.8-10.44)
[2019-12-05 00:49] LABS: Anion Gap 19 mmol/L (10-20); Carbon Dioxide 40 mmol/L (23-31); Chloride 84 mmol/L (98-107); Potassium 3.5 mmol/L (3.5-5.1); Sodium 139 mmol/L (136-145)
[2019-12-05 01:13] LABS: BUN (Urea Nitrogen) 47 mg/dL (9.8-20.1); Calc. Creatinine Clearance 23 mL/min (70-130); Estimated GFR-MDRD 37; Glucose 139 mg/dL (83-110); Magnesium 1.9 mg/dL (1.6-2.6); Phosphorus 2.3 mg/dL (2.3-4.7)
[2019-12-05] MEDS ORDERED: Magnesium Sulfate 2 GM in Sodium Chloride 0.9% 250 ML 250 ML IVPB SCH (02:00)
--- NOTE | 2019-12-05 03:40 | PRG ---
DATE OF SERVICE: 12/05/2019 SUBJECTIVE: The patient is admitted today, status post a repeated fall, in which she sustained an acute and subacute right subdural hematoma with a 9 mm [id number] midline shift. She was also on Eliquis and because of this, she was given Kcentra in the emergency department. The patient had a GCS of 13 to 14 in the emergency department, but hours later, she had a decline. She went back to the CAT scanner for a repeat head CT, which showed increased size of her subdural hematoma, at which time, she was taken emergently to the operating room by Dr. Scott to undergo a large frontotemporoparietal craniotomy, evacuation of subdural hematoma. Postoperatively, the patient was returned to the critical care unit. She remained on the ventilator with full mechanical ventilatory support. The patient's Radha Coma Scale was 7, E1, V1, M5. PHYSICAL EXAMINATION: VITAL SIGNS: Currently stable. Her heart rate is paced at 80 beats per minute. Her systolic blood pressure is maintaining above 100 with MAP staying above 70. She is not requiring any pressor support. Again, the patient's Radha Coma Scale is 7, E1, V1T, M5. The patient is moving all 4 extremities. HEENT: The patient has a large dressing in place on her scalp. It is clean, dry, and intact. Pupils are 4 mm and sluggish. LUNGS: Clear to auscultation bilaterally. HEART: Regular rate and rhythm. ABDOMEN: Soft, nontender with hypoactive bowel sounds. EXTREMITIES: Capillary refill is less than 3 seconds. There is no pitting edema. LABORATORY FINDINGS: Postoperatively show a white blood cell count of 20.7, hemoglobin 10.2, hematocrit 33.4, and platelets 254. Sodium 139, potassium 3.5, chloride 84, CO2 of 40, BUN 47, creatinine 1.40, glucose 139, magnesium 1.9, and phosphorus 2.3. INR is 1.0. ASSESSMENT AND PLAN: 1. Status post ground level fall. 2. Acute and subacute right convexity subdural hematoma, worsened, requiring the above-mentioned procedure. 3. Eliquis-induced coagulopathy, received Kcentra and vitamin K. 4. History of chronic congestive heart failure. 5. Apparent chronic malnutrition with cachexia. 6. History of chronic obstructive pulmonary disease with chronic hypoxemia, pulmonary insufficiency. Plan will be to continue full mechanical ventilatory support. The patient had an NG tube placed in the critical care unit. Radiographs showed good position. Ordered cortisol level as her blood pressure is slightly on the lower side, though her MAP is maintaining. The patient has indeterminate troponins x3. We will repeat one more in the morning. Job ID: [id number]
[2019-12-05] MEDS: CEFAZOLIN 2 GM in Premix Bag 1 BAG IVPB SCH ×3 (04:03→21:01)
[2019-12-05 04:05] LABS: BUN (Urea Nitrogen) 51 mg/dL (9.8-20.1); Calc. Creatinine Clearance 24 mL/min (70-130); Calcium 11.1 mg/dL (7.8-10.44); Estimated GFR-MDRD 38; Glucose 116 mg/dL (83-110); Magnesium 1.8 mg/dL (1.6-2.6)
[2019-12-05 04:10] LABS: Anion Gap 18 mmol/L (10-20); Carbon Dioxide 40 mmol/L (23-31); Chloride 86 mmol/L (98-107); Potassium 3.6 mmol/L (3.5-5.1); Sodium 140 mmol/L (136-145)
[2019-12-05 06:21] LABS: Hemoglobin 10.4 g/dL (12.0-16.0); Mean Corpuscular HGB CONC 30.7 g/dL (32.0-36.0); Mean Corpuscular Hemoglobin 29.1 pg (27.0-31.0); Mean Corpuscular Volume 94.6 fL (78.0-98.0); Mean Platelet Volume 8.7 fL (7.4-10.4); Platelet Count 262 thou/uL (130-400); RBC Distribution Width 15.2 % (11.5-14.5); Red Blood Cell (RBC) Count 3.58 mill/uL (4.20-5.40); White Blood Cell (WBC) Count 23.9 thou/uL (4.8-10.8)
[2019-12-05 06:28] LABS: PTT 27.5 sec (22.9-36.1); Prothrombin Time 13.4 sec (12.0-14.7)
[2019-12-05 06:48] LABS: Troponin I 0.091 ng/mL (< 0.028)
--- NOTE | 2019-12-05 07:28 | CT ---
PRELIMINARY REPORT/[facility]/EMERGENCY AFTER HOURS PROCEDURE: EXAM: CT Head, without Contrast DATE/ TIME: 12/05/2019, 3:45 AM INDICATION: Right subdural hematoma S/P evacuation TECHNIQUE: Axial CT imaging was performed through the head without intravenous administration of con trast. Exam was performed using one or more of the following dose reduction techniques: automated e xposure control, adjustment of the mA and/or kV according to patient size, or use of iterative recons truction technique. COMPARISON: CT Head 12/04/2019, 5:31 PM. FINDINGS: Operative changes of a right hemicraniotomy are now seen. The right subdural hematoma has been evacuated; no drain is seen. A small amount of residual hemorrhage in the right subdural space is seen. Gas in the right subdural space also is noted which measures 2.2 cm in greatest thickness. Leftward subfalcine midline shift now measures 10.5 mm (axial image 15) compared to 13.5 mm on preo perative imaging. There is improved visualization of the right ventricular system. Trace blood within a sulcus of the right frontal lobe is noted. Blood is layering within the occipit al horns, left more than right. Suprasellar, ambient and quadrigeminal plate cisterns are better vis ualized. Calcified atheroma is seen within the cavernous portions of the internal carotid arteries c ompatible with intracranial atherosclerotic vascular disease (ASVD). Closing the skin robert from t he right hemicraniotomy are noted. Gas and some fluid in the right scalp are seen. A small amount o f fluid in the right mastoid tip is redemonstrated. Left mastoid and visualized sinuses are clear. IMPRESSION: 1. Status post right hemicraniotomy with changes related to evacuation of an acute right subdural he matoma. There is decreased leftward subfalcine shift with improved visualization of the right ventri cular system as well as basilar cisterns. 2. A small amount of residual subdural hemorrhage remains. 3. Intraventricular and subarachnoid hemorrhage. ELECTRONICALLY SIGNED BY: Paco Ovalles DO Dec 05, 2019 4:22:28 AM CDT This report is intended for review by the ordering physician only, in accordance of law. If you recei ve this report in error, please call [facility] at [phone]. FINAL REPORT EMERGENCY AFTER HOURS CT BRAIN WITHOUT CONTRAST: Date: 12/05/2019 COMPARISON: 12/04/2019. FINDINGS/IMPRESSION: I agree with the findings and impression given in the preliminary report per [facility] physici an. There has been interval evacuation of the right-sided subdural hemorrhage. Expected pneumocephalus is seen. There is less midline shift. A small amount of residual subdural hemorrhage remains. Intravent ricular hemorrhage and subarachnoid hemorrhage are also seen. POS: [facility]
[2019-12-05 07:41] LABS: Actual Bicarbonate (HCO3a) 43.5 mEq/L (22-28); Base Excess (BEa) 18.5 mEq/L (-2.0 to +3.0); CO2 Tension 53.4 mmHg (35.0-45.0); Calcium, Ionized (arterial) 1.18 mmol/L (1.12-1.30); Carboxyhemoglobin (COHb) 0.6 gm% (0.0-3.0); Hemoglobin (Hb) 10.5 g/dL (12.0-16.0); O2 Tension (PaO2), arterial 73.9 mmHg (> 70.0); Potassium - ABG Lab 3.61 mmol/L (3.70-5.30); pH, Arterial 7.53 (7.35-7.45)
[2019-12-05 07:42] LABS: Puncture Site RRA
--- NOTE | 2019-12-05 07:50 | RAD ---
EXAM: Single view of the chest HISTORY: Intubated patient with respiratory failure COMPARISON: 12/04/2019 FINDINGS: Single view of the chest shows a normal sized cardiomediastinal silhouette. The lines and tubes are unchanged in position. The pacemaker is unchanged in position. Increased interstitial markings are present. There may be a small left pleural effusion. The bones are unremarkable. IMPRESSION: Stable exam
--- NOTE | 2019-12-05 08:02 | PRG ---
DATE OF SERVICE: Ms. Beasley is postop day one from evacuation of a large subdural hematoma while on Eliquis. She has been given a total of three doses of Kcentra. She remains intubated. Overnight, I do not see any fevers recorded. Her blood pressures have been in the 110s to 160s. The 160s are too high. On neurological examination, she remains on propofol at 40 mL an hour. In spite of this amount of medication, she still is purposeful with all 4 extremities. She is not opening her eyes, but she does localize. The left side is moving much better than it did yesterday. This morning's CT scan shows pneumocephalus in the area of the hematoma evacuation. There was a thin layer of blood, but it is nothing compared to what it was before surgery. All in all, this is a very good-looking scan. There may be a little extra blood in the ventricular system, but it was a nice decompression and the brain is slowly going to re-expand. Ms. eBasley could be extubated any time today. We will follow her neurological examination. If she remains stable, she can be moved tomorrow from the ICU to floor care. She will need physical therapy and likely some occupational therapy as well. Inpatient rehabilitation is a good placement for her. I would remain off Eliquis indefinitely. If she needs to go back on anticoagulation 2 to 3 weeks from now, I would suggest an anticoagulant that can be reversed given her falling history. Job ID: [id number]
[2019-12-05] MEDS ORDERED: Prevnar 13-Val Conj/PF 0.5 ML SYRINGE IM ONE (09:00)
[2019-12-05] MEDS: Pantoprazole 40 MG VIAL IVP SCH (09:01)
[2019-12-05] MEDS ORDERED: Sodium Chloride 0.9% 250 ML IV SCH (09:30)
[2019-12-05] MEDS ORDERED: Potassium Phosphate 15 MMOL in Sodium Chloride 0.9% 250 ML 250 ML IVPB SCH (09:30)
[2019-12-05] MEDS: Sodium Chloride 0.9% 1,000 ML IV SCH ×2 (11:03→21:07)
[2019-12-05 11:20] LABS: Base Excess (BEa) 16.3 mEq/L (-2.0 to +3.0); CO2 Tension 50.7 mmHg (35.0-45.0); Calcium, Ionized (arterial) 1.12 mmol/L (1.12-1.30); Carboxyhemoglobin (COHb) 0.9 gm% (0.0-3.0); Hemoglobin (Hb) 10.2 g/dL (12.0-16.0); O2 Tension (PaO2), arterial 84.6 mmHg (> 70.0); Potassium - ABG Lab 3.65 mmol/L (3.70-5.30); pH, Arterial 7.53 (7.35-7.45)
[2019-12-05 11:21] LABS: ALV-art Gradient 137.225 (0-20); Puncture Site RRA
--- NOTE | 2019-12-05 14:11 | PRG ---
DATE OF SERVICE: 12/05/2019 SUBJECTIVE: Ms. Beasley is a 74-year-old woman, who was admitted yesterday following a ground-level fall with resultant large right convexity subdural hematoma. Repeat CT scan of the brain a few hours after admission revealed progression of the right subdural hematoma with significant mass effects requiring emergent right craniectomy and evacuation of the said hematoma. Repeat CT scan of the brain this morning reveals adequate evacuation, although there is still some residual right-sided cerebral edema with [id number] midline shift, though improved overall. The patient remains on mechanical ventilator support. She is sedated on propofol and fentanyl by continuous infusion. When the propofol is on hold, the patient moves all extremities and is able to localize to pain, does not follow commands. Radha Coma Scale at the time was noted at E2, M5, V1t. Urinary output is marginal for this patient's weight. OBJECTIVE: VITAL SIGNS: Currently include blood pressure 103/70, pulse is 82, respiratory rate is 20, maximum temperature in the last 24 hours is 99.7 degrees Fahrenheit, and oxygen saturations 97% on FiO2 of 40% on mechanical ventilator support. HEENT: Pupils are equal, round, and reactive to light bilaterally. She has no jugular venous distention noted. HEART: Reveals irregular rate and rhythm. LUNGS: Reveal scattered rhonchi. Breathing, regular and nonlabored. ABDOMEN: Soft, nontender, and nondistended. NEUROLOGIC: Reveals no focal deficits present. LABORATORY FINDINGS: Today includes a CBC with 23,900 white blood cells, hemoglobin and hematocrit at 10.4 and 33.9 respectively. Platelet count is 262,000. Arterial blood gas; pH 7.53, pCO2 is 51, PO2 is 85, and base excess is 16.3. Metabolic profile; sodium 140, potassium 3.6, chloride is 86, bicarb is 40, BUN is 51, creatinine is 1.37, glucose is 116, magnesium is 1.8, and phosphorus is 3.0. Prealbumin is 16.0. Troponin I is 0.091. This is an improvement from 0.106 approximately 6 hours previously. IMPRESSION: 1. Postoperative day #1, status post right hemicraniectomy with evacuation of right convexity subdural hematoma. 2. 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 3. Acute posttraumatic respiratory failure. 4. Acute metabolic alkalosis, likely contraction alkalosis. 5. Acute kidney injury. 6. Acute hypokalemia. 7. Acute hypomagnesemia. PLAN: 1. Correct abnormal electrolytes. 2. Continue with full mechanical ventilator support until the patient is neurologically stable. 3. We will continue to maintain better sedation until the cerebral edema is resolving. 4. We will employ judicious increase in total fluid intake, monitoring urinary output, and renal function as endpoint of resuscitation. 5. Continue with nonpharmacological VTE prophylaxis. Above findings and plan will be discussed with the patient's family once they arrive. Total critical care time is 40 minutes. Job ID: [id number]
[2019-12-06] MEDS: Acetaminophen 650 MG/20.3 ML UDCUP PER TUBE SCH ×4 (00:04→18:00)
--- NOTE | 2019-12-06 01:44 | PRG ---
DATE OF SERVICE: 12/05/2019 SUBJECTIVE: The patient remains in the critical care unit on full mechanical ventilation. The patient is postop day #1, status post subdural hematoma with significant mass effect, requiring emergent right craniotomy and evacuation of hematoma. The patient is currently on a fentanyl drip for sedation. The patient moves all extremities spontaneously. [place] Coma Scale E3, M5, V1t. The patient does open eyes to voice. OBJECTIVE: VITAL SIGNS: Blood pressure 160/61, pulse 85, SpO2 of 95% on FiO2 of 40%. GENERAL: Elderly female. LUNGS: Full mechanical ventilatory support. HEENT: Pupils are equal, round, and reactive at 3 mm bilateral. Attempts to open eyes to voice. Kerlix bandage clean, dry, and intact to scalp. RESPIRATORY: Scattered rhonchi bilateral. Equal chest expansion. CARDIAC: Irregularly irregular rate. No pedal edema. Systolic murmur. ABDOMEN: Soft, nontender, and nondistended. NEUROLOGIC: GCS 9t. IMPRESSION: 1. Postop day #1 status post right hemicraniectomy with evacuation of right convexity subdural hematoma with flap replaced. 2. 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 3. Acute posttraumatic respiratory failure. 4. Acute metabolic alkalosis. 5. Acute kidney injury. 6. Acute hypokalemia and acute hypomagnesium. PLAN: Continue full mechanical ventilator support until the patient is neurologically stable. We will continue to monitor urinary output and renal function. Continue with nonpharmacological VTE prophylaxis. We will panculture the patient as the patient has a fever. We will add Tylenol as scheduled. Job ID: [id number]
[2019-12-06] MEDS: CEFAZOLIN 2 GM in Premix Bag 1 BAG IVPB SCH ×3 (04:02→20:29)
[2019-12-06 04:05] LABS: Anion Gap 13 mmol/L (10-20); BUN (Urea Nitrogen) 41 mg/dL (9.8-20.1); Calc. Creatinine Clearance 27 mL/min (70-130); Calcium 8.2 mg/dL (7.8-10.44); Carbon Dioxide 36 mmol/L (23-31); Chloride 96 mmol/L (98-107); Estimated GFR-MDRD 44; Glucose 121 mg/dL (83-110); Phosphorus 4.3 mg/dL (2.3-4.7); Potassium 2.9 mmol/L (3.5-5.1); Sodium 142 mmol/L (136-145)
[2019-12-06 04:06] LABS: Band 8 % (5-11); Hemoglobin 8.3 g/dL (12.0-16.0); Hypochromia SLIGHT = 6-15 cells (100X) (0-5/hpf); MDiff Complete? YES; Mean Corpuscular HGB CONC 29.9 g/dL (32.0-36.0); Mean Corpuscular Hemoglobin 28.7 pg (27.0-31.0); Mean Corpuscular Volume 95.9 fL (78.0-98.0); Mean Platelet Volume 8.9 fL (7.4-10.4); Monocytes 5 % (0-10); Neutrophil 87 % (42-75); Platelet Count 247 thou/uL (130-400); Platelet Morphology Comment Appears Adequate; RBC Distribution Width 15.5 % (11.5-14.5); White Blood Cell (WBC) Count 18.6 thou/uL (4.8-10.8)
[2019-12-06] MEDS ORDERED: Potassium Chloride 40 MEQ in Sodium Chloride 0.9% 250 ML 250 ML IVPB SCH (05:00)
[2019-12-06] MEDS: Sodium Chloride 0.9% 1,000 ML IV SCH ×2 (05:22→17:58)
[2019-12-06] MEDS ORDERED: Artificial Tear Sol 15 ML BOT EA EYE PRN (06:23)
[2019-12-06 08:10] LABS: Actual Bicarbonate (HCO3a) 34.3 mEq/L (22-28); Base Excess (BEa) 9.8 mEq/L (-2.0 to +3.0); CO2 Tension 46.9 mmHg (35.0-45.0); Calcium, Ionized (arterial) 1.03 mmol/L (1.12-1.30); Carboxyhemoglobin (COHb) 1.3 gm% (0.0-3.0); Hemoglobin (Hb) 8.6 g/dL (12.0-16.0); O2 Tension (PaO2), arterial 96.5 mmHg (> 70.0); Potassium - ABG Lab 3.32 mmol/L (3.70-5.30); pH, Arterial 7.48 (7.35-7.45)
--- NOTE | 2019-12-06 08:24 | RAD ---
EXAM: CHEST ONE VIEW HISTORY: Intubated secondary to trauma. COMPARISON: 12/05/2019 FINDINGS: Endotracheal tube and nasogastric tubes remain in place. Dual lead left subclavian cardiac pacemaking device is again seen. Cardiac silhouette is within normal limits for portable technique of this study. Mild increased interstitial densities are again seen greater at each lung base and in the bryan on of the lingula. Blunting of the left lateral costophrenic angle is seen suggesting small left pleural effusion. Remote fracture deformity of the proximal right humerus is present. Osteopenia is s een. Vascular calcifications are seen in the thoracic aorta. No other interval change. IMPRESSION: 1. Increased interstitial and patchy parenchymal densities at each lung base and in the region of the lingula. Findings could be related to developing pneumonitis or possibly aspiration pneumonitis. 2. Small left pleural effusion. 3. Endotracheal tube and nasogastric tubes unchanged in position.
--- NOTE | 2019-12-06 08:26 | PRG ---
DATE OF SERVICE: 12/06/2019 Ms. Beasley is 2 days out from craniotomy for subdural hematoma while she was on Eliquis. The postop scan looked reasonably good and yesterday she continued to improve her neurological function. She remains intubated. A significant amount of IV and PEG fluid is going in more than her maintenance. She has a small size and there is excess fluid. Her temperature maximum was 101.8 degrees Fahrenheit. Her blood pressures have been in the 120s to 150s. When I walk in the room, the propofol is running. However, she opens her eyes to voice. She localizes very briskly with all 4 extremities. I cannot quite get her to follow commands, but with enough reinforcement, I think she did eventually squeeze my hand. We will defer extubation to the Trauma Surgery Service. Trying to balance her lung function against the ongoing risk of being intubated. I will trust her judgment. Neurologically, she is ready for extubation, however. Job ID: [id number]
[2019-12-06] MEDS: Pantoprazole 40 MG VIAL IVP SCH (09:10)
[2019-12-06] MEDS: Amantadine HCl 100 mg Capsule PO SCH ×2 (09:39→20:30)
[2019-12-06 09:41] LABS: Puncture Site LBA
[2019-12-06 09:43] LABS: ALV-art Gradient 130.075 (0-20)
[2019-12-06 16:19] LABS: Actual Bicarbonate (HCO3a) 30.9 mEq/L (22-28); Base Excess (BEa) 5.3 mEq/L (-2.0 to +3.0); CO2 Tension 50.5 mmHg (35.0-45.0); Carboxyhemoglobin (COHb) 0.4 gm% (0.0-3.0); Hemoglobin (Hb) 9.3 g/dL (12.0-16.0); O2 Tension (PaO2), arterial 87.2 mmHg (> 70.0); Potassium - ABG Lab 3.29 mmol/L (3.70-5.30)
[2019-12-06 16:25] LABS: Puncture Site RBA
[2019-12-06 16:26] LABS: ALV-art Gradient 134.875 (0-20)
--- NOTE | 2019-12-06 18:03 | PRG ---
DATE OF SERVICE: 12/06/2019 SUBJECTIVE: Ms. Beasley is a 74-year-old woman, who is postoperative day #2, status post right hemicraniectomy with evacuation of right convexity subdural hematoma. The patient is on mechanical ventilatory support. She was sedated with fentanyl at 25 mcg/hour which has been discontinued since 0700 hours this morning. She has been off propofol since 10:00 a.m. yesterday. She is awake and moves all extremities, but does not follow commands. A [place] Coma Scale currently is E4, M5, V1t. She is tolerating tube feeds at goal. The patient was found two days previously with acute on chronic contraction metabolic alkalosis complicating this CO2 retainer. Bicarb was 40. Her BUN and creatinine were noted at 47 and 1.40 respectively, which time urinary output was quite marginal. Despite appropriate maintenance IV fluid, the patient remains oliguric yesterday, requiring us to slightly increase total fluid intake overnight. Currently, the patient has adequate urinary output for age and weight. OBJECTIVE: VITAL SIGNS: This morning include blood pressure 156/67, pulse 80, respiratory rate is 20, maximum temperature in the last 24 hours is 101.8 degrees Fahrenheit. She has been pancultured and started on empiric antibiotic therapy. HEENT: Pupils are equal, round, and reactive to light bilaterally. HEART: Reveals irregular rate and rhythm, rate controlled. LUNGS: Reveals scattered rhonchi. Breathing, regular and nonlabored. ABDOMEN: Soft, nontender, nondistended. EXTREMITIES: Reveal 2+ radial and pedal pulses bilaterally. No ankle edema is present. NEUROLOGIC: Reveals no focal deficits present. [place] Coma Scale is E4, M5, V1t. LABORATORY FINDINGS: Today include CBC with 18,600 white blood cells, down from 23,900 yesterday. Hemoglobin and hematocrit of 8.3 and 27.8 respectively. Platelet count is 247,000. Differential counts as follows; 87 segmented neutrophils, 8 bands, and 5 monocytes. Metabolic profile: Sodium 142, potassium 2.9, chloride is 96, bicarb is 36, BUN is 41, creatinine is 1.20, glucose 121, magnesium 2.0, and phosphorus 4.3. Arterial blood gas; pH is 7.48, improved from 7.53 yesterday. PCO2 is 47, PO2 is 96.5, base excess is 9.8, down from 22.0 two days previously. Ionized calcium is 1.03. IMPRESSIONS: 1. Postoperative day #2, status post right hemicraniectomy with evacuation of right subdural hematoma. 2. Resolving acute contraction metabolic alkalosis. 3. Acute posttraumatic respiratory failure, stable. 4. Acute hypokalemia. 5. Acute hypocalcemia. PLAN: 1. Correct abnormal electrolytes. 2. We will decrease total fluid intake and monitor the patient's urinary output as endpoint. 3. Increase activity per Physical and Occupational therapy. We will mobilize the patient to neuro chair meanwhile. 4. Continue mechanical ventilatory support and begin ventilatory wean as the patient's neurological status dictates. Total critical care time is 40 minutes. Job ID: [id number]
[2019-12-06] MEDS: Morphine 2 MG/ML VIAL SLOW IVP PRN (20:29)
[2019-12-06] MEDS: hydrALAZINE 20 MG/ML VIAL SLOW IVP PRN (20:29)
[2019-12-06] MEDS: Atorvastatin Calcium 10 MG TAB PO SCH (20:30)
[2019-12-07] MEDS: Sodium Chloride 0.9% 1,000 ML IV SCH (00:11)
[2019-12-07] MEDS: Acetaminophen 650 MG/20.3 ML UDCUP PER TUBE SCH ×5 (00:11→23:02)
[2019-12-07 04:07] LABS: Band 15 % (5-11); Hemoglobin 8.3 g/dL (12.0-16.0); Lymphocytes 1 % (21-51); MDiff Complete? YES; Mean Corpuscular HGB CONC 30.6 g/dL (32.0-36.0); Mean Corpuscular Hemoglobin 29.8 pg (27.0-31.0); Mean Corpuscular Volume 97.4 fL (78.0-98.0); Mean Platelet Volume 9.1 fL (7.4-10.4); Monocytes 6 % (0-10); Neutrophil 78 % (42-75); Platelet Count 259 thou/uL (130-400); Platelet Morphology Comment Appears Adequate; RBC Distribution Width 15.5 % (11.5-14.5); Red Blood Cell (RBC) Count 2.78 mill/uL (4.20-5.40); White Blood Cell (WBC) Count 20.3 thou/uL (4.8-10.8)
[2019-12-07 04:18] LABS: Anion Gap 10 mmol/L (10-20); BUN (Urea Nitrogen) 28 mg/dL (9.8-20.1); Calc. Creatinine Clearance 39 mL/min (70-130); Calcium 8.3 mg/dL (7.8-10.44); Carbon Dioxide 34 mmol/L (23-31); Chloride 106 mmol/L (98-107); Estimated GFR-MDRD 68; Glucose 109 mg/dL (83-110); Magnesium 1.8 mg/dL (1.6-2.6); Phosphorus 2.6 mg/dL (2.3-4.7); Potassium 2.9 mmol/L (3.5-5.1); Sodium 147 mmol/L (136-145)
[2019-12-07] MEDS: CEFAZOLIN 2 GM in Premix Bag 1 BAG IVPB SCH (04:21)
[2019-12-07] MEDS ORDERED: Potassium Phosphate 30 MMOL in Sodium Chloride 0.9% 250 ML 250 ML IVPB SCH (05:30)
[2019-12-07] MEDS: Morphine 2 MG/ML VIAL SLOW IVP PRN (05:39)
--- NOTE | 2019-12-07 07:20 | PRG ---
DATE OF SERVICE: 12/07/2019 I saw Sharla Beasley in the ICU this morning. She remains intubated. Total fluid in has been adjusted downward and it is more appropriate for her size. She has made neurological progress. Overnight, there are no fevers recorded, and the other vitals have been stable. Ms. Beasley's examination has improved. When I say her name, she opens her eyes. She squeezed her right hand after a little bit of a delay, but it was quite clear that she was following commands. She is moving all 4 extremities well. When her lungs are ready, Ms. Beasley can be extubated. There is no neurological reason to continue it. She will need placement in inpatient rehabilitation, most likely. Job ID: [id number]
[2019-12-07] MEDS ORDERED: Potassium Chloride 60 MEQ in Premix Bag 1 BAG IVPB SCH (07:45)
--- NOTE | 2019-12-07 08:00 | RAD ---
Chest one view HISTORY: Dyspnea. Intubated. Follow-up. COMPARISON: 12/06/2019. FINDINGS: Cardiac silhouette is magnified by projection. Pulmonary vasculature upper limits of normal . Mediastinum is midline with aortic calcification. Lines and tubes appear unchanged in position. Lungs remain hyperinflated with the exception of opacity at the left base that has the appearance of pleural fluid and atelectasis that are similar previous study. No lobar consolidation or evidence of pneumothorax. surveillance monitor leads overlie the chest. IMPRESSION : Left pleural fluid/basilar atelectasis, and other findings are stable.
[2019-12-07] MEDS ORDERED: SODIUM CHLORIDE 0.9% IVPB SCH (08:15)
[2019-12-07] MEDS ORDERED: POTASSIUM CHLORIDE IVPB SCH (08:15)
[2019-12-07] MEDS ORDERED: MAGNESIUM SULFATE IVPB SCH (08:15)
[2019-12-07] MEDS: cefTRIAXone\\ROCEPHIN 1 GM in Sodium Chloride 0.9% 100 ML IVPB SCH (08:42)
[2019-12-07] MEDS: Pantoprazole 40 MG VIAL IVP SCH (08:43)
[2019-12-07] MEDS: Digoxin 0.125 MG TAB PO SCH (08:48)
--- NOTE | 2019-12-07 09:22 | PRG ---
DATE OF SERVICE: 12/06/2019 SUBJECTIVE: The patient remains in the critical care unit on ventilator support. The patient had a CPAP trial earlier today in which this evening her SpO2 dropped to 88% and was placed back on a rate. The patient moves all extremities spontaneously. The patient opens eyes to voice and follows commands by wiggling her toes only; when asked to squeeze my hand, no response. The patient does make eye contact when opening her eyes. GCS is E3 B1, TM6 for a total of 10T. The patient did sit up in the neuro chair most of the day today. OBJECTIVE: VITAL SIGNS: Stable, afebrile. GENERAL: Elderly female, on full ventilator support, no distress. RESPIRATORY: Scattered rhonchi, spontaneous breaths on ventilator. CARDIAC: No pedal edema. Regular rate, ventricular paced. ABDOMEN: Soft, nontender, and nondistended. EXTREMITIES: Moves all extremities spontaneously, distal pulses 2+ in all extremities, no ankle edema. NEUROLOGIC: No focal deficits. IMPRESSION: 1. Postop day 2, status post right hemicraniectomy with evacuation of right subdural hematoma. 2. Resolving acute contraction metabolic alkalosis. 3. Acute posttraumatic respiratory failure, stable. 4. Acute hypokalemia. 5. Acute hypocalcemia. PLAN: Total intake of fluids 75 mL an hour. Continue to monitor urinary output. Continue to increase physical and occupational therapy. Allow the patient up in neuro chair as much as possible during the day. We will continue to wean the ventilator as tolerated. Repeat labs in the morning. Job ID: [id number]
[2019-12-07] MEDS ORDERED: Dexamethasone 4 mg/ml Vial ONE (09:39)
[2019-12-07] MEDS: Amantadine HCl 100 mg Capsule PO SCH ×2 (09:44→20:07)
--- NOTE | 2019-12-07 09:55 | RAD ---
1 VIEW ABDOMEN: Date: 12/07/2019 HISTORY: Dobbhoff placement. COMPARISON: None. FINDINGS: Dobbhoff feeding tube is identified with the distal tip likely in the proximal stomach. Advancement i s recommended. Bowel gas pattern is nonspecific. IMPRESSION: Dobbhoff feeding tube in the stomach. Consider advancement. POS: OFF
[2019-12-07] MEDS ORDERED: Dexamethasone 4 mg/ml Vial SLOW IVP SCH (10:00)
[2019-12-07] MEDS: hydrALAZINE 20 MG/ML VIAL SLOW IVP PRN (10:14)
[2019-12-07] MEDS ORDERED: methylPREDNISolone Sod Succ/PF 125 MG/2 ML VIAL IVP SCH (12:00)
[2019-12-07] MEDS ORDERED: Ipratropium Bromide 2.5 ml Neb NEB SCH (12:15)
[2019-12-07] MEDS ORDERED: Albuterol Sulfate 2.5 mg/3 ml Neb NEB SCH (12:15)
[2019-12-07] MEDS ORDERED: Furosemide 40 MG/4 ML VIAL ONE (12:41)
[2019-12-07] MEDS ORDERED: Furosemide 40 MG/4 ML VIAL SLOW IVP SCH ×2 (12:45→21:00)
--- NOTE | 2019-12-07 14:52 | PRG ---
DATE OF SERVICE: 12/07/2019 SUBJECTIVE: Ms. Beasley is a 74-year-old woman, who is postoperative day #3, status post right hemicraniectomy and evacuation of right convexity subdural hematoma. She remains on mechanical ventilator support, on no sedation. She awakens to voice. Moves all extremities and follows commands. Radha Coma Scale is noted at E3 M6 V1t. She tolerates tube feeds at goal. Urinary output is adequate for this patient's age and weight. OBJECTIVE: VITAL SIGNS: Include blood pressure 145/61, pulse 86, respiratory rate is 18, maximum temperature in the last 24 hours is 101.8 degrees Fahrenheit, currently temperature is 99.3 degrees Fahrenheit. HEENT: Pupils are equal, round, reactive to light bilaterally. HEART: Reveals irregular rate and irregular rhythm, rate controlled. LUNGS: Reveals scattered rhonchi. Breathing, regular and nonlabored. ABDOMEN: Soft, nontender, and nondistended. EXTREMITIES: Reveal 2+ radial and pedal pulses bilaterally. No ankle edema is present. The patient was cultured overnight and is currently on cefazolin. LABORATORY FINDINGS: Today include a CBC with 20,300 white blood cells, hemoglobin and hematocrit stable at 8.3 and 27.0 respectively. Platelet count is 259,000. Differential counts as follows; 78 segmented neutrophils, 15 bands, 1 lymphocyte, and 6 monocytes. Metabolic profile; sodium 147, potassium 2.9, chloride is 106, bicarb is 34, BUN is 28, creatinine is 0.83, glucose is 109, magnesium is 1.8, and phosphorus 2.6. BNP is 618.6. IMPRESSIONS: 1. Postop day #3, status post right hemicraniectomy with evacuation of right convexity subdural hematoma. 2. Acute posttraumatic respiratory failure, improving. 3. Acute hypernatremia. 4. Acute hypokalemia. 5. Acute hypomagnesemia. 6. Acute hypophosphatemia. 7. Resolved acute kidney injury. PLAN: 1. Correct abnormal electrolytes. 2. The patient will be weaned and extubated accordingly. 3. We will resume home medications for COPD. 4. Initiate physical and occupational therapy and increase activity accordingly. Total critical care time is 35 minutes. Job ID: [id number]
[2019-12-07 15:01] LABS: Potassium 3.7 mmol/L (3.5-5.1)
[2019-12-07] MEDS ORDERED: Potassium Chloride 40 MEQ, Magnesium Sulfate 1 GM in Sodium Chloride 0.9% 250 ML 250 ML IVPB SCH (15:45)
[2019-12-07] MEDS: Dexamethasone 4 mg/ml Vial SLOW IVP SCH ×2 (16:39→21:06)
[2019-12-07 17:53] LABS: Actual Bicarbonate (HCO3a) 28.6 mEq/L (22-28); Base Excess (BEa) 3.6 mEq/L (-2.0 to +3.0); CO2 Tension 45.3 mmHg (35.0-45.0); Calcium, Ionized (arterial) 1.08 mmol/L (1.12-1.30); Carboxyhemoglobin (COHb) 0.2 gm% (0.0-3.0); Hemoglobin (Hb) 9.2 g/dL (12.0-16.0); O2 Tension (PaO2), arterial 73.6 mmHg (> 70.0); pH, Arterial 7.42 (7.35-7.45)
[2019-12-07 17:56] LABS: Puncture Site LRA
[2019-12-07 17:57] LABS: ALV-art Gradient 119.325 (0-20)
[2019-12-07] MEDS: Budesonide 0.5 MG/2 ML NEB INH SCH (18:17)
[2019-12-07] MEDS: Atorvastatin Calcium 10 MG TAB PO SCH (20:07)
[2019-12-07] MEDS: methylPREDNISolone Sod Succ/PF 125 MG/2 ML VIAL IVP SCH (21:06)
--- NOTE | 2019-12-08 02:43 | PRG ---
DATE OF SERVICE: 12/07/2019 SUBJECTIVE: The patient was seen on the critical care unit during evening rounds. The patient is currently on BiPAP. The patient was extubated earlier today and had some respiratory distress and tachypnea. The patient was diuresed and placed on BiPAP. The patient currently opens eyes to voice and follows commands by squeezing hands. The patient is unable to speak at this time due to BiPAP mask in place. Urinary output is adequate for the patient's age and weight. OBJECTIVE: VITAL SIGNS: Stable, afebrile. GENERAL: Elderly female, resting comfortably with BiPAP in place, no distress. RESPIRATORY: Good inspiratory and expiratory effort, scattered rhonchi. CARDIAC: Irregular rate, no pedal edema. ABDOMEN: Soft, nontender, nondistended. EXTREMITIES: No focal deficits, no edema, distal pulses 2+ in all extremities. IMPRESSION: 1. Postoperative day #3, status post right hemicraniectomy with evacuation of right convexity subdural hematoma. 2. Acute posttraumatic respiratory failure, improving. 3. Acute hypernatremia. 4. Acute hypokalemia. 5. Acute hypomagnesemia. 6. Resolved acute kidney injury. 7. Acute hypophosphatemia. PLAN: Continue BiPAP overnight. Continue physical and occupational therapy. Continue supportive care. Job ID: [id number]
[2019-12-08 04:01] LABS: #Lymphocytes 0.5 thou/uL (1.20-3.40); #Neutrophils 16.2 thou/uL (1.40-6.50); %Eosinophils 0.1 % (0.0-10.0); %Monocytes 5.5 % (0.0-10.0); %Neutrophils 91.5 % (42.0-75.0); Hemoglobin 8.6 g/dL (12.0-16.0); Mean Corpuscular HGB CONC 30.4 g/dL (32.0-36.0); Mean Corpuscular Hemoglobin 29.9 pg (27.0-31.0); Mean Corpuscular Volume 98.3 fL (78.0-98.0); Mean Platelet Volume 9.2 fL (7.4-10.4); Platelet Count 348 thou/uL (130-400); RBC Distribution Width 15.6 % (11.5-14.5); Red Blood Cell (RBC) Count 2.89 mill/uL (4.20-5.40); White Blood Cell (WBC) Count 17.7 thou/uL (4.8-10.8)
[2019-12-08 04:30] LABS: Anion Gap 15 mmol/L (10-20); BUN (Urea Nitrogen) 35 mg/dL (9.8-20.1); Calc. Creatinine Clearance 30 mL/min (70-130); Calcium 8.9 mg/dL (7.8-10.44); Carbon Dioxide 30 mmol/L (23-31); Chloride 106 mmol/L (98-107); Estimated GFR-MDRD 49; Glucose 207 mg/dL (83-110); Magnesium 2.1 mg/dL (1.6-2.6); Phosphorus 3.4 mg/dL (2.3-4.7); Potassium 3.4 mmol/L (3.5-5.1); Sodium 148 mmol/L (136-145)
[2019-12-08] MEDS: methylPREDNISolone Sod Succ/PF 125 MG/2 ML VIAL IVP SCH (05:12)
[2019-12-08] MEDS: Acetaminophen 650 MG/20.3 ML UDCUP PER TUBE SCH ×4 (05:13→23:18)
[2019-12-08] MEDS: hydrALAZINE 20 MG/ML VIAL SLOW IVP PRN (05:23)
[2019-12-08] MEDS: Budesonide 0.5 MG/2 ML NEB INH SCH ×2 (07:26→18:51)
[2019-12-08] MEDS: cefTRIAXone\\ROCEPHIN 1 GM in Sodium Chloride 0.9% 100 ML IVPB SCH (07:31)
[2019-12-08] MEDS: Digoxin 0.125 MG TAB PO SCH (07:32)
[2019-12-08] MEDS: Pantoprazole 40 MG VIAL IVP SCH (07:33)
[2019-12-08] MEDS: Amantadine HCl 100 mg Capsule PO SCH ×2 (07:34→19:42)
[2019-12-08] MEDS ORDERED: Potassium Phosphate 30 MMOL in Sodium Chloride 0.9% 250 ML 250 ML IVPB SCH (07:45)
--- NOTE | 2019-12-08 09:34 | PRG ---
DATE OF SERVICE: I saw Sharla Beasley in her ICU room this morning. She has been extubated, but she is on a BiPAP machine currently. She is awake and interactive, however. She is in a bedside chair. I introduced myself and she opened her eyes, she follow commands with all 4 extremities. She is a little weaker on the left than the right, but she does move the arm and leg better than she did yesterday. She follows commands quite easily. She says thank you for visiting this morning. Ms. Beasley is doing well. In spite of an anticoagulant exacerbated subdural hematoma with some mass effect and midline shift, she is making recovery, which is great news. Her recoveries could be slow and protracted, but we are heading in the right direction. We will continue to follow her here in the hospital. Job ID: [id number]
[2019-12-08] MEDS: Furosemide 40 MG/4 ML VIAL SLOW IVP SCH ×2 (10:22→19:47)
[2019-12-08] MEDS: Dexamethasone 4 mg/ml Vial SLOW IVP SCH (10:22)
[2019-12-08] MEDS: methylPREDNISolone Sod Succ 40 MG VIAL IVP SCH ×2 (13:47→21:13)
--- NOTE | 2019-12-08 19:20 | PRG ---
DATE OF SERVICE: 12/08/2019 SUBJECTIVE: Ms. Beasley is a 74-year-old woman, who is postoperative day #4, status post right hemicraniectomy and evacuation of right convexity subdural hematoma. She is more alert today. She moves all extremities. She follows commands. She was placed on BiPAP yesterday for COPD exacerbation. Oxygenation is better today. She is requiring decreasing FiO2. [place] Coma Scale is noted at E4 M6 V2. Unable to hear her voice because she is on the BiPAP. OBJECTIVE: VITAL SIGNS: Blood pressure is 145/58, pulse is 81, respiratory rate is 20, maximum temperature in last 24 hours is 99.3 degrees Fahrenheit, and oxygen saturation is 100% on FiO2 of 30% on BiPAP. HEENT: Pupils equally round and reactive to light bilaterally. No jugular venous distention noted. HEART: Irregular rate and irregular rhythm, but rate controlled. LUNGS: Scattered rhonchi. Breathing regular and nonlabored. ABDOMEN: Soft, nontender, and nondistended. EXTREMITIES: 2+ radial and pedal pulses bilaterally. No ankle edema is present. NEUROLOGIC: No focal deficits present. LABORATORY FINDINGS: Today include a CBC with 17,700 white blood cells, hemoglobin and hematocrit of 8.6 and 28.4 respectively. Platelet count is 348,000. Metabolic profile; sodium is 148, potassium is 3.4, chloride is 106, bicarb is 30, BUN is 35, creatinine is 1.09, glucose is 207, magnesium is 2.1, and phosphorus is 3.4. IMPRESSIONS: 1. Postoperative day #4 status post right hemicraniectomy and evacuation of right convexity subdural hematoma. 2. Resolving acute pulmonary insufficiency. 3. Acute hypokalemia. 4. Acute hypophosphatemia 5. Resolving acute congestive heart failure exacerbation. PLAN: 1. Correct abnormal electrolytes. 2. Increase free water intake. 3. Continue with gentle diuresis. Monitor urinary output and renal function as endpoint of resuscitation. 4. Increase activity per Physical and Occupational therapy. 5. We will try to place patient on high-flow nasal cannula oxygen today, at which time, if tolerating, we will ask Speech and Language pathologist to evaluate the patient for swallow function. Job ID: [id number] MTDD
[2019-12-08] MEDS: Atorvastatin Calcium 10 MG TAB PO SCH (19:47)
[2019-12-08] MEDS ORDERED: levETIRAcetam 500 MG TAB PO SCH (21:00)
[2019-12-09 03:53] LABS: Band 7 % (5-11); Hemoglobin 9.3 g/dL (12.0-16.0); Hypochromia SLIGHT = 6-15 cells (100X) (0-5/hpf); Lymphocytes 4 % (21-51); MDiff Complete? YES; Mean Corpuscular HGB CONC 29.2 g/dL (32.0-36.0); Mean Corpuscular Hemoglobin 29.2 pg (27.0-31.0); Mean Platelet Volume 10.2 fL (7.4-10.4); Monocytes 5 % (0-10); Neutrophil 84 % (42-75); Platelet Count 333 thou/uL (130-400); Platelet Morphology Comment Appears Adequate; RBC Distribution Width 15.9 % (11.5-14.5); Red Blood Cell (RBC) Count 3.18 mill/uL (4.20-5.40); White Blood Cell (WBC) Count 17.9 thou/uL (4.8-10.8)
[2019-12-09 04:06] LABS: Anion Gap 20 mmol/L (10-20); BUN (Urea Nitrogen) 47 mg/dL (9.8-20.1); Calc. Creatinine Clearance 28 mL/min (70-130); Carbon Dioxide 29 mmol/L (23-31); Chloride 106 mmol/L (98-107); Estimated GFR-MDRD 45; Glucose 140 mg/dL (83-110); Phosphorus 4.2 mg/dL (2.3-4.7); Potassium 3.5 mmol/L (3.5-5.1); Sodium 151 mmol/L (136-145)
[2019-12-09] MEDS: hydrALAZINE 20 MG/ML VIAL SLOW IVP PRN (04:33)
--- NOTE | 2019-12-09 05:23 | PRG ---
DATE OF SERVICE: 12/08/2019 SUBJECTIVE: The patient remains in the critical care unit alert, on BiPAP, in no distress. Nursing staff reports earlier she complained of some shortness of breath, in which it improved after receiving Lasix. Earlier this morning, the patient was placed on high-flow nasal cannula. The patient did not tolerate for very long due to increased shortness of breath. The patient was placed back on BiPAP with improvement. The patient was started on free water flushes for hypernatremia. The patient continues tube feeds at goal at 45 mL an hour. The patient's urinary output remains adequate for age and weight. The patient is currently ventricular paced on the monitor with some frequent PVCs. The patient continues to receive antibiotics for her pneumonia. PLAN: Continue supportive care. Continue BiPAP overnight. Continue to have the patient up in the neuro chair during the day. Continue to monitor urinary output. Continue free water flushes for hypernatremia. Job ID: [id number]
[2019-12-09] MEDS: methylPREDNISolone Sod Succ 40 MG VIAL IVP SCH ×3 (05:26→21:29)
[2019-12-09] MEDS: Acetaminophen 650 MG/20.3 ML UDCUP PER TUBE SCH ×3 (05:26→18:33)
[2019-12-09] MEDS: Budesonide 0.5 MG/2 ML NEB INH SCH ×2 (07:11→17:18)
[2019-12-09] MEDS: Amantadine HCl 100 mg Capsule PO SCH ×2 (07:18→22:28)
[2019-12-09] MEDS: cefTRIAXone\\ROCEPHIN 1 GM in Sodium Chloride 0.9% 100 ML IVPB SCH (07:18)
[2019-12-09] MEDS: Furosemide 40 MG/4 ML VIAL SLOW IVP SCH ×2 (07:18→08:52)
[2019-12-09] MEDS: Pantoprazole 40 MG VIAL IVP SCH (07:18)
[2019-12-09] MEDS: Digoxin 0.125 MG TAB PO SCH (07:26)
[2019-12-09] MEDS: levETIRAcetam 500 mg/5 ml Oral Solution PO SCH ×2 (08:53→21:29)
--- NOTE | 2019-12-09 08:55 | RAD ---
PORTABLE CHEST: DATE: 12/09/2019. PROVIDED CLINICAL HISTORY: Respiratory insufficiency. FINDINGS: Comparison 12/07/2019. Interval extubation. An enteric catheter is present, which appears different t cordero the one on the prior study and the tip of this catheter is not visualized but the distal visualiz ed aspect overlies the left upper abdomen. Additional significant interval change with respect to th e prior examination is not apparent. IMPRESSION: As above. POS: [facility]
[2019-12-09] MEDS ORDERED: Non-Formulary Item 1 EACH (Fluticasone/Salmeterol [Advair Diskus 100/50] 1 INH) IH SCH (09:00)
[2019-12-09] MEDS: Cefepime 1 GM in Sodium Chloride 0.9% 100 ML IVPB SCH ×2 (09:04→21:32)
[2019-12-09] MEDS ORDERED: Polyethylene Glycol 3350 17 GM Packet PER TUBE SCH (09:45)
--- NOTE | 2019-12-09 11:07 | PRG ---
DATE OF SERVICE: 12/09/2019 I saw Sharla Beasley in our ICU room this morning. She is sitting up. She is not on the occlusive BiPAP machine, but she does have a nasal cannula with some continuous oxygen supply. She is able to talk to me about her operation and asked a few questions. She is moving all her extremities well. I think Ms. Beasley is doing better than I would have expected with an anticoagulant related subdural hematoma. Inpatient rehabilitation will be of some benefit. She can leave the ICU when she does not require as much respiratory therapy as she is getting now. Job ID: [id number]
[2019-12-09] MEDS ORDERED: Fentanyl 100 MCG/2 ML VIAL SLOW IVP PRN (15:42)
[2019-12-09] MEDS ORDERED: Docusate 100 MG CAP PO PRN (15:42)
[2019-12-09] MEDS ORDERED: traMADol HCl 50 MG TAB PO PRN (15:42)
[2019-12-09] MEDS ORDERED: HYDROcodone/Acetaminophen 7.5/325 mg Tablet PO PRN (15:43)
--- NOTE | 2019-12-09 15:53 | PRG ---
DATE OF SERVICE: 12/09/2019 SUBJECTIVE: Ms. Beasley is a 74-year-old woman, who recently underwent emergent right hemicraniectomy with evacuation of right subdural hematoma. The patient is awake and alert today. She is more verbal and interactive. She asked to have some water to drink. I gave her some ice chips. She was able to tolerate a few ice chips before coughing, although she has a much stronger cough this morning. There is still some risk for aspiration. She was on BiPAP overnight, but this morning, she was on high-flow nasal cannula oxygen and sat up in the chair. OBJECTIVE: VITAL SIGNS: At the time of my evaluation included blood pressure 132/54, pulse 82, respiratory rate is 23, maximum temperature in the last 24 hours is 98.7 degrees Fahrenheit, oxygen saturation is 99% on 6 L high-flow nasal. HEENT AND NECK: There is no jugular venous distention noted. HEART: Reveals irregular rate and rhythm, though rate controlled. ABDOMEN: Soft, nontender, and nondistended. NEUROLOGIC: Reveals no focal deficits present. LABORATORY FINDINGS: Today include CBC with 17,900 white blood cells. Hemoglobin and hematocrit 9.3 and 31.8 respectively. Platelet count is 333,000. White blood cell count is down from 20,300 on 12/07/2019. Metabolic profile; sodium 151, potassium is 3.5, chloride is 106, bicarb is 29, BUN is 47, creatinine is 1.18, glucose is 140, magnesium is 2.0. BNP is 174.3 today. This is down from 618.6 on 08/18/2019. IMPRESSION: 1. Status post right hemicraniectomy and evacuation of right convexity subdural hematoma, postoperative day #5. 2. Resolved acute congestive heart failure exacerbation. 3. Resolving acute chronic obstructive pulmonary disease exacerbation. 4. Acute hypernatremia. 5. Acute hypokalemia. PLAN: 1. Correct abnormal electrolytes. 2. We will start the patient on hydrochlorothiazide and continue to increase free water intake monitoring serum sodium as endpoint. 3. Increase activity per Physical and Occupational Therapy. 4. We will ask speech and language pathologist to evaluate the patient for swallow function, cognition, and speech if she is able to tolerate high-flow nasal cannula oxygen. 5. We will continue to treat for COPD exacerbation, and we will resume all pre-hospitalization medications for COPD. 6. The patient will be left in the ICU overnight and consider transfer to step-down unit if she continues to improve from pulmonary status. Job ID: [id number]
--- NOTE | 2019-12-09 18:07 | RAD ---
EXAM: XR Abdomen 1 View/KUB PROVIDED CLINICAL HISTORY: Dobbhoff feeding tube placement COMPARISON: 12/07/2019 FINDINGS: Dobbhoff feeding tube is again noted in place but has been advanced which is coiled over the left upp er quadrant with tip overlying the expected location of the gastric cardia. Cardiac pacemaking leads are again partially imaged. Bowel gas pattern is nonspecific. Aeration left lung base has mildl y improved, but pleural-parenchymal changes persist. IMPRESSION: Dobbhoff feeding tube noted in place which has been mildly advanced and is partially coiled over the left upper quadrant. Tip is seen overlying the expected location of the gastric cardia. Mild improvement in aeration left lung base.
[2019-12-09] MEDS: Senokot S 8.6-50 MG TAB PO SCH (21:28)
[2019-12-09] MEDS: Hydrochlorothiazide 25 MG TAB PO SCH (21:29)
[2019-12-09] MEDS: Atorvastatin Calcium 10 MG TAB PO SCH (21:30)
[2019-12-09] MEDS: Mometasone 100 MCG/Formoterol 5 MCG 120 PUFF INHALER INH SCH (22:54)
[2019-12-10] MEDS: Acetaminophen 650 MG/20.3 ML UDCUP PER TUBE SCH ×4 (00:02→18:51)
[2019-12-10 04:18] LABS: Band 4 % (5-11); Hemoglobin 9.2 g/dL (12.0-16.0); Hypochromia SLIGHT = 6-15 cells (100X) (0-5/hpf); Lymphocytes 3 % (21-51); MDiff Complete? YES; Mean Corpuscular HGB CONC 30.1 g/dL (32.0-36.0); Mean Corpuscular Hemoglobin 29.4 pg (27.0-31.0); Mean Corpuscular Volume 97.8 fL (78.0-98.0); Mean Platelet Volume 9.4 fL (7.4-10.4); Monocytes 6 % (0-10); Neutrophil 87 % (42-75); Platelet Count 398 thou/uL (130-400); Platelet Morphology Comment Appears Adequate; RBC Distribution Width 15.2 % (11.5-14.5); Red Blood Cell (RBC) Count 3.14 mill/uL (4.20-5.40); White Blood Cell (WBC) Count 15.5 thou/uL (4.8-10.8)
[2019-12-10 04:20] LABS: Anion Gap 17 mmol/L (10-20); BUN (Urea Nitrogen) 51 mg/dL (9.8-20.1); Calc. Creatinine Clearance 33 mL/min (70-130); Carbon Dioxide 34 mmol/L (23-31); Chloride 103 mmol/L (98-107); Estimated GFR-MDRD 55; Glucose 133 mg/dL (83-110); Phosphorus 3.9 mg/dL (2.3-4.7); Potassium 3.1 mmol/L (3.5-5.1); Sodium 151 mmol/L (136-145)
[2019-12-10] MEDS: methylPREDNISolone Sod Succ 40 MG VIAL IVP SCH ×2 (05:45→13:50)
[2019-12-10] MEDS: Budesonide 0.5 MG/2 ML NEB INH SCH ×2 (07:40→18:10)
[2019-12-10] MEDS: Mometasone 100 MCG/Formoterol 5 MCG 120 PUFF INHALER INH SCH ×2 (07:40→18:07)
--- NOTE | 2019-12-10 08:08 | PRG ---
DATE OF SERVICE: 12/10/2019 I saw Ms. Beasley in her hospital room this morning. She is on a BiPAP machine overnight. She wakes easily as I entered the room. We had some conversation. She is moving all her extremities. She is bit weaker on the left. The left is moving and she has antigravity strength throughout. She squeezes in both sides quite easily. The sodium is 151 and has been so since yesterday. Culture from her respiratory tree has grown Pseudomonas. Once Ms. Beasley is off supplemental oxygen BiPAP, she can be moved to floor care. Inpatient rehabilitation would be a good outcome for her. Job ID: [id number]
--- NOTE | 2019-12-10 08:36 | PRG ---
DATE OF SERVICE: 12/09/2019 SUBJECTIVE: The patient was seen on the critical care unit, awake, alert, in no distress on BiPAP. The patient had pulled her Dobbhoff feeding tube out earlier today and was replaced by nursing staff. The patient also kept pulling out her high-flow nasal cannula. The patient is currently tolerating BiPAP at this time. OBJECTIVE: VITAL SIGNS: Stable, afebrile. GENERAL: Elderly female, awake, alert, on BiPAP, in no distress. PLAN: Continue supportive care and BiPAP. We will move the patient to the [facility] as she no longer needs to be in the critical care unit as the patient has been off pressors and is doing well on her BiPAP. Continue daily Lasix. Continue free water flushes q.4 hours. The patient is hypernatremic. Continue antibiotics. Job ID: [id number]
[2019-12-10] MEDS: Cefepime 1 GM in Sodium Chloride 0.9% 100 ML IVPB SCH ×2 (09:37→20:44)
[2019-12-10] MEDS: Furosemide 40 MG/4 ML VIAL SLOW IVP SCH (09:38)
[2019-12-10] MEDS: Polyethylene Glycol 3350 17 GM Packet PER TUBE SCH (09:38)
[2019-12-10] MEDS: Digoxin 0.125 MG TAB PO SCH (09:38)
[2019-12-10] MEDS: Pantoprazole 40 MG VIAL IVP SCH (09:38)
[2019-12-10] MEDS: Senokot S 8.6-50 MG TAB PO SCH ×2 (09:39→20:45)
[2019-12-10] MEDS: levETIRAcetam 500 mg/5 ml Oral Solution PO SCH ×2 (09:58→20:45)
[2019-12-10] MEDS: Amantadine HCl 100 mg Capsule PO SCH ×2 (09:58→20:45)
[2019-12-10] MEDS ORDERED: Potassium Chloride 40 MEQ in Sodium Chloride 0.9% 250 ML 250 ML IVPB SCH (10:00)
--- NOTE | 2019-12-10 20:37 | PRG ---
DATE OF SERVICE: 12/10/2019 SUBJECTIVE: Ms. Beasley is a 74-year-old woman, who is status post right nickolas craniectomy with evacuation of subdural hematoma. The patient is awake and alert today. She is more interactive. She wanted to have some water to drink, which I presented to her. She was able to take a few sips with no difficulties. She was on BiPAP last night, but this morning was on high-flow nasal cannula oxygen. We were able to place her on 4 L of regular nasal cannula oxygen, achieving O2 saturation in excess of 90%. OBJECTIVE: VITAL SIGNS: Otherwise, her vital signs include; blood pressure 126/61, pulse is 80, respiratory rate is 20, maximum temperature in the last 24 hours is 98.5 degrees Fahrenheit, oxygen saturation currently 97% on 4 L by nasal cannula oxygen. HEENT: Pupils are equal, round, and reactive to light bilaterally. She has no jugular venous distention noted. HEART: Reveals regular rate and rhythm. LUNGS: Reveals scattered rhonchi, overall breathing is markedly improved. ABDOMEN: Soft, nontender, nondistended. NEUROLOGIC: Reveals no focal deficits present. LABORATORY FINDINGS: 1. Include a CBC with 15,500 white blood cells, down from 17,900 yesterday. Hemoglobin and hematocrit remained stable at 9.2 and 30.7 respectively. Platelet count is also stable at 298,000. 2. Metabolic profile; sodium 151, potassium 3.1, chloride is 103, bicarb is 34, BUN 51, creatinine is 0.99, this is an improvement from BUN and creatinine of 47 and 1.18 yesterday. 3. Glucose is 133, magnesium 2.0, and phosphorus 3.9. 4. BNP is 174.3, down from 248.6 yesterday. IMPRESSION: 1. Acute congestive heart failure exacerbation, improved. 2. Status post right hemicraniectomy and evacuation of subdural hematoma, neurologically improving. 3. Acute hypernatremia, stable. 4. Acute hypokalemia. 5. Acute chronic obstructive pulmonary disease exacerbation, improved. PLAN: 1. Increase free water intake orally as the patient tolerates. 2. Correct abnormal electrolytes. 3. Increase activity per Physical and Occupational therapy. 4. Ask case management to begin discharge planning. The patient likely will require inpatient rehabilitation versus fdc facility. 5. She will remain in the intermediate care unit for the next 24 hours. 6. Continue with bronchodilator therapy and begin to wean steroids accordingly. Job ID: [id number]
[2019-12-10] MEDS: Hydrochlorothiazide 25 MG TAB PO SCH (20:45)
[2019-12-10] MEDS: Atorvastatin Calcium 10 MG TAB PO SCH (20:45)
[2019-12-11] MEDS: Acetaminophen 650 MG/20.3 ML UDCUP PER TUBE SCH ×4 (00:09→18:27)
[2019-12-11] MEDS: methylPREDNISolone Sod Succ 40 MG VIAL IVP SCH ×2 (02:25→14:59)
[2019-12-11 03:57] LABS: BUN (Urea Nitrogen) 52 mg/dL (9.8-20.1); Calc. Creatinine Clearance 36 mL/min (70-130); Calcium 9.3 mg/dL (7.8-10.44); Estimated GFR-MDRD 54; Glucose 93 mg/dL (83-110); Phosphorus 4.1 mg/dL (2.3-4.7)
[2019-12-11 04:06] LABS: Anion Gap 20 mmol/L (10-20); Carbon Dioxide 34 mmol/L (23-31); Chloride 100 mmol/L (98-107); Potassium 3.3 mmol/L (3.5-5.1); Sodium 151 mmol/L (136-145)
[2019-12-11] MEDS ORDERED: Potassium Chloride 20 MEQ TAB PO SCH (07:45)
[2019-12-11] MEDS: Mometasone 100 MCG/Formoterol 5 MCG 120 PUFF INHALER INH SCH ×2 (08:35→18:32)
[2019-12-11] MEDS: Budesonide 0.5 MG/2 ML NEB INH SCH ×2 (08:55→18:32)
[2019-12-11] MEDS: Pantoprazole 40 MG VIAL IVP SCH (09:18)
[2019-12-11] MEDS: Lisinopril 10 MG TAB PO SCH (09:19)
[2019-12-11] MEDS: Polyethylene Glycol 3350 17 GM Packet PER TUBE SCH (09:19)
[2019-12-11] MEDS: Senokot S 8.6-50 MG TAB PO SCH ×2 (09:19→21:13)
[2019-12-11] MEDS: Furosemide 40 MG/4 ML VIAL SLOW IVP SCH (09:19)
[2019-12-11] MEDS: Digoxin 0.125 MG TAB PO SCH (09:19)
[2019-12-11] MEDS: Amantadine HCl 100 mg Capsule PO SCH ×2 (09:20→21:13)
[2019-12-11] MEDS: levETIRAcetam 500 mg/5 ml Oral Solution PO SCH ×2 (09:20→21:13)
[2019-12-11] MEDS: Cefepime 1 GM in Sodium Chloride 0.9% 100 ML IVPB SCH ×2 (09:20→21:12)
--- NOTE | 2019-12-11 10:21 | PRG ---
DATE OF SERVICE: 12/11/2019 I saw Ms. Beasley in her hospital room. She was talking on the phone when I arrived. She feels better and better each day. There are not any new neurological deficits. Her sodium is 151, which is perfectly acceptable. We will see a CT scan in about a month, and will remove robert about 2 weeks after her operation.. Job ID: [id number] MTDD
--- NOTE | 2019-12-11 10:52 | PDOC.FMACP ---
Advance Care Planning - Problem (1) Subdural hematoma Status: Acute Code(s): S06.5X9A - TRAUM SUBDR HEM W LOC OF UNSP DURATION, INIT (2) Palliative care encounter Status: Acute Code(s): Z51.5 - ENCOUNTER FOR PALLIATIVE CARE (3) Acute on chronic diastolic (congestive) heart failure Status: Acute Code(s): I50.33 - ACUTE ON CHRONIC DIASTOLIC (CONGESTIVE) HEART FAILURE (4) Acute on chronic respiratory failure with hypoxia Status: Acute Code(s): J96.21 - ACUTE AND CHRONIC RESPIRATORY FAILURE WITH HYPOXIA (5) COPD exacerbation Status: Acute Code(s): J44.1 - CHRONIC OBSTRUCTIVE PULMONARY DISEASE W (ACUTE ) EXACERBATION - Note Participants: patient, palliative care Summary: Palliative Care introduced Advanced Care Planning, allowed Ms Beasley an opportunity to decline. The diagnosis, prognosis and goals of care were discussed. Appropriate forms and documentation to accomplish the goals of care were discussed. All questions were answered. Ally Hennessy Palliative care completed Medical Power of Rabbet Operator with patient, she designated her sister Colleen Abdi as her surrogate decision maker. Jazzy GARRISON Pallative Care discussed Directive to Physician. Ms Beasley is electing to complete at the intermediate, PC team communicated with facility to assist in completion of Directive to Physician. Time Spent (mins): 30
--- NOTE | 2019-12-11 12:03 | ULT ---
BILATERAL LOWER EXTREMITY VENOUS DUPLEX ULTRASOUND INCLUDING COLOR AND SPECTRAL DOPPLER IMAGING: Date: 12/11/2019 HISTORY: Follow-up injury, lower leg edema. TECHNIQUE: Exam performed from groin to ankle including visualized greater saphenous, common femoral, superficia l femoral, profunda femoral, popliteal, trifurcation, and posterior tibial vein regions. FINDINGS: Phasic flow noted at all levels with normal compressibility and normal augmentation. No intraluminal thrombus. IMPRESSION: No evidence for deep venous thrombosis. POS: [facility]
[2019-12-11] MEDS: Atorvastatin Calcium 10 MG TAB PO SCH (21:12)
[2019-12-11] MEDS: Hydrochlorothiazide 25 MG TAB PO SCH (21:12)
--- NOTE | 2019-12-11 23:19 | PRG ---
DATE OF SERVICE: SUBJECTIVE: Patient was seen during evening rounds, resting comfortably. Patient is currently on 4 L nasal cannula, which is what she uses at home. Patient has been off BiPAP all day. Patient's respirations are even and nonlabored with prolonged expiratory phase. Patient's nurse states her pain has been well controlled and she had no issues during the day. OBJECTIVE: VITAL SIGNS: Stable, afebrile, and SpO2 is 100% on nasal cannula. PLAN: Continue supportive care. Continue cefepime for pneumonia. Continue patient's blood pressure medication. Continue physical and occupational therapy. Patient is pending placement to [facility]. Most likely, patient will be ready to go in the next 48 hours. Job ID: [id number]
[2019-12-12] MEDS: Acetaminophen 650 MG/20.3 ML UDCUP PER TUBE SCH ×4 (00:44→17:33)
[2019-12-12] MEDS: methylPREDNISolone Sod Succ 40 MG VIAL IVP SCH ×2 (01:01→13:34)
[2019-12-12] MEDS: Budesonide 0.5 MG/2 ML NEB INH SCH ×2 (07:00→18:27)
[2019-12-12] MEDS: Mometasone 100 MCG/Formoterol 5 MCG 120 PUFF INHALER INH SCH ×2 (07:03→18:27)
--- NOTE | 2019-12-12 07:18 | PRG ---
DATE OF SERVICE: Ms. Beasley has been moved out of the intermediate care unit to general floor care. She has oxygen by nasal cannula and resting comfortably when I entered the room. She opens her eyes and has a conversation with me. She is feeling well. I told her that I recommend to shower today. Inpatient rehabilitation will be of some benefit. Hopefully, she can have that shower. Job ID: [id number]
[2019-12-12] MEDS: levETIRAcetam 500 mg/5 ml Oral Solution PO SCH ×2 (08:04→20:29)
[2019-12-12] MEDS: Cefepime 1 GM in Sodium Chloride 0.9% 100 ML IVPB SCH ×2 (08:04→20:29)
[2019-12-12] MEDS: Amantadine HCl 100 mg Capsule PO SCH ×2 (08:05→20:36)
[2019-12-12] MEDS: Lisinopril 10 MG TAB PO SCH (08:05)
[2019-12-12] MEDS: Pantoprazole 40 MG VIAL IVP SCH (08:06)
[2019-12-12] MEDS: Digoxin 0.125 MG TAB PO SCH (08:06)
[2019-12-12] MEDS: Senokot S 8.6-50 MG TAB PO SCH ×2 (08:06→20:36)
[2019-12-12] MEDS: Furosemide 40 MG/4 ML VIAL SLOW IVP SCH (08:06)
[2019-12-12] MEDS: Polyethylene Glycol 3350 17 GM Packet PER TUBE SCH (08:06)
[2019-12-12] MEDS: Hydrochlorothiazide 25 MG TAB PO SCH (20:36)
[2019-12-12] MEDS: Atorvastatin Calcium 10 MG TAB PO SCH (20:36)
--- NOTE | 2019-12-12 21:24 | PRG ---
DATE OF SERVICE: 12/12/2019 SUBJECTIVE: The patient is currently on the surgical floor. She is status post a ground level fall in which she sustained a right subdural hematoma requiring a right hemicraniotomy. The patient is currently awaiting placement to the [facility]. She is tolerating a diet. Her pain is controlled and she has started working with Physical and Occupational Therapy. At the time of our visit, she had no complaints. She stated that she did eat some breakfast this morning. The nurses report that her neurologic status continues to improve and she is being weaned off her oxygen. PHYSICAL EXAMINATION: VITAL SIGNS: Temperature is 98.1, heart rate 75, blood pressure 120/76, respirations 20, and oxygen saturation is 100% on 2.5 L nasal cannula. GENERAL: The patient is resting comfortably in bed. She is awake, appropriate. She is oriented to person and place, was not sure of the time, but relatively speaking, is doing very well. [place] Coma Scale is 14, -1 for confusion. HEENT: Her surgical sites are clean, dry, and intact. Her robert are intact. LUNGS: Clear to auscultation bilaterally. HEART: Regular rate and rhythm. ABDOMEN: Soft, flat, nontender with active bowel sounds. EXTREMITIES: Neurovascularly intact x4. LABORATORY DATA: There are no labs or radiographs to review this morning. ASSESSMENT/PLAN: 1. Status post ground level fall. 2. Status post right subdural hematoma requiring right hemicraniotomy. 3. Acute congestive heart failure exacerbation, improved. PLAN: Will be to encourage physical and occupational therapy. Continue supportive care and await placement decision. Job ID: [id number]
[2019-12-13] MEDS: Acetaminophen 650 MG/20.3 ML UDCUP PER TUBE SCH ×3 (01:16→17:51)
[2019-12-13] MEDS: methylPREDNISolone Sod Succ 40 MG VIAL IVP SCH (02:48)
[2019-12-13 06:34] LABS: Band 1 % (5-11); Hemoglobin 9.7 g/dL (12.0-16.0); Lymphocytes 2 % (21-51); MDiff Complete? YES; Mean Corpuscular HGB CONC 29.9 g/dL (32.0-36.0); Mean Corpuscular Hemoglobin 29.3 pg (27.0-31.0); Mean Corpuscular Volume 97.9 fL (78.0-98.0); Mean Platelet Volume 8.7 fL (7.4-10.4); Monocytes 2 % (0-10); Neutrophil 95 % (42-75); Platelet Count 576 thou/uL (130-400); RBC Distribution Width 14.8 % (11.5-14.5); Red Blood Cell (RBC) Count 3.32 mill/uL (4.20-5.40); White Blood Cell (WBC) Count 24.1 thou/uL (4.8-10.8)
[2019-12-13 06:39] LABS: BUN (Urea Nitrogen) 41 mg/dL (9.8-20.1); Calc. Creatinine Clearance 36 mL/min (70-130); Calcium 9.5 mg/dL (7.8-10.44); Estimated GFR-MDRD 61; Glucose 105 mg/dL (83-110); Magnesium 1.7 mg/dL (1.6-2.6); Phosphorus 3.3 mg/dL (2.3-4.7)
[2019-12-13 06:48] LABS: Anion Gap 14 mmol/L (10-20); Chloride 91 mmol/L (98-107); Sodium 148 mmol/L (136-145)
[2019-12-13 06:52] LABS: Carbon Dioxide 46 mmol/L (23-31)
[2019-12-13] MEDS: Mometasone 100 MCG/Formoterol 5 MCG 120 PUFF INHALER INH SCH ×2 (07:19→18:45)
[2019-12-13] MEDS: Budesonide 0.5 MG/2 ML NEB INH SCH ×2 (07:22→18:23)
--- NOTE | 2019-12-13 07:51 | RAD ---
Chest one view HISTORY: Chest pain. Trauma. Follow-up. COMPARISON: 12/09/2019. FINDINGS: Cardiac silhouette is magnified and upper limits of normal. Left cardiac margin partially o bscured by parenchymal opacity within the lingula which, along with left basilar atelectasis and left pleural fluid, are not significantly changed. Mediastinum is midline with aortic calcification. Atelectasis of the right upper lobe is similar in a ppearance. Feeding catheter no longer visualized. No evidence of pneumothorax. Right rib fractures again demonstrated. IMPRESSION : Interval removal of the feeding tube. Left pleural fluid and posttraumatic changes of the chest are otherwise stable.
[2019-12-13] MEDS ORDERED: predniSONE 20 MG TAB PO SCH (08:00)
--- NOTE | 2019-12-13 08:16 | PRG ---
DATE OF SERVICE: 12/13/2019 Ms. Sharla Beasley is in her hospital room this morning. Her white count is a bit up, but she does not feel febrile. She thinks she is getting better each day. She and I spoke about our plan for the day and her physical therapy. The fact that she would like some more cold beverages and that she really wants to get home eventually there. Ms. Beasley has not been showered. She needs a shower and her head needs to be cleaned at least every other day if not daily. I will try to put the order in again. Job ID: [id number]
[2019-12-13] MEDS ORDERED: Magnesium Sulfate 2 GM in Sodium Chloride 0.9% 100 ML IVPB SCH (08:45)
[2019-12-13] MEDS ORDERED: Potassium Chloride 20 MEQ TAB PO SCH (08:45)
[2019-12-13] MEDS ORDERED: Saccharomyces boulardii 250 MG CAP PO SCH (09:00)
[2019-12-13] MEDS ORDERED: Magnesium 2 GM/50 ML 2 GM in Premix Bag 1 BAG IVPB SCH (09:00)
[2019-12-13] MEDS: levETIRAcetam 500 mg/5 ml Oral Solution PO SCH ×2 (10:41→20:11)
[2019-12-13] MEDS: Lisinopril 10 MG TAB PO SCH (10:42)
[2019-12-13] MEDS: Amantadine HCl 100 mg Capsule PO SCH ×2 (10:43→20:11)
[2019-12-13] MEDS: Digoxin 0.125 MG TAB PO SCH (10:43)
[2019-12-13] MEDS: Senokot S 8.6-50 MG TAB PO SCH ×2 (10:44→20:11)
[2019-12-13] MEDS: Furosemide 40 MG/4 ML VIAL SLOW IVP SCH (10:45)
[2019-12-13] MEDS: Pantoprazole 40 MG VIAL IVP SCH (10:46)
[2019-12-13] MEDS: Polyethylene Glycol 3350 17 GM Packet PER TUBE SCH (10:47)
[2019-12-13 12:44] LABS: Bacteria/HPF None Seen HPF (None Seen); Bilirubin Negative (Negative); Blood, Urine Trace (Negative); Clarity Clear (Clear); Glucose, Urine (Dipstick) Normal (Negative); Ketone, Urine Negative (Negative); Leukocyte 75 Leu/uL (Negative); Nitrite Negative (Negative); Protein, Urine (Dipstick) Negative (Neg-Trace); RBC/HPF 0-3 HPF (0-3); Specific Gravity, Urine 1.007 (1.002-1.036); Squamous Epithelial None Seen HPF (0-3); Urobilinogen Normal mg/dL (Less than 2)
[2019-12-13 12:45] LABS: Urine Culture Reflex Yes Yes
[2019-12-13 20:03] VITALS: BP 94/60; TEMP 97.9
[2019-12-13] MEDS: Hydrochlorothiazide 25 MG TAB PO SCH (20:11)
[2019-12-13] MEDS: Atorvastatin Calcium 10 MG TAB PO SCH (20:12)
== END 2019-12-13 22:27 | disposition short-term general hospital (02) | DRG 25 ==
LOC: ERS 14:00 → CCU 16:33 → IMCU/EMU 12-10 01:49 → SURG B 12-11 17:14
PROVIDERS: ADMIT Surgery; ATTEND Surgery
PROC: 00C40ZZ Extirpation of Matter from Intracranial Subdural Space, Open Approach (ICD-10-PCS; principal; 2019-12-04)
DX: S06.5X0A Traumatic subdural hemorrhage without loss of consciousness, initial encounter (principal); S06.1X0A Traumatic cerebral edema without loss of consciousness, initial encounter; J96.01 Acute respiratory failure with hypoxia; R64 Cachexia; I69.351 Hemiplegia and hemiparesis following cerebral infarction affecting right dominant side; D68.9 Coagulation defect, unspecified; E46 Unspecified protein-calorie malnutrition; E87.3 Alkalosis; J44.1 Chronic obstructive pulmonary disease with (acute) exacerbation; N17.9 Acute kidney failure, unspecified; E87.0 Hyperosmolality and hypernatremia; Z68.1 Body mass index [BMI] 19.9 or less, adult; I48.0 Paroxysmal atrial fibrillation; I11.0 Hypertensive heart disease with heart failure; F17.210 Nicotine dependence, cigarettes, uncomplicated; R40.2232 Coma scale, best verbal response, inappropriate words, at arrival to emergency department; E87.6 Hypokalemia; E83.42 Hypomagnesemia; R40.2362 Coma scale, best motor response, obeys commands, at arrival to emergency department; R40.2142 Coma scale, eyes open, spontaneous, at arrival to emergency department; K21.9 Gastro-esophageal reflux disease without esophagitis; I50.9 Heart failure, unspecified; F41.9 Anxiety disorder, unspecified; E83.51 Hypocalcemia; E78.5 Hyperlipidemia, unspecified; R47.1 Dysarthria and anarthria; Z79.01 Long term (current) use of anticoagulants; Z95.0 Presence of cardiac pacemaker
CPT/HCPCS: 36415; 51702; 70450; 71045; 74018; 80048; 81001; 81003; 82533; 82553; 82805; 83735; 83880; 84100; 84134; 84484; 85007; 85025; 85027; 85610; 85730; 86850; 86900; 86901; 87040; 87070; 87077; 87086; 87186; 87205; 93005; 93970; 94002; 94003; 94640; 94660; 96365; 96366; 96374; 96375; 99292; C1713; C9113; C9132; J0360; J0690; J0692; J0696; J1100; J1940; J1953; J2270; J2704; J2920; J2930; J3010; J3430; J3475; J3480; J3490; J7050; J7512; J7611; J7620; J7626